=== PATIENT | male | born 1955 | race Caucasian/White ===

== ENCOUNTER 2019-01-09 13:49 | Emergency (ER) | payer SELFPAY ==
[~2019-01-09] VITALS: Ht 172.7 cm; Wt 65.9 kg
[2019-01-09 14:08] VITALS: BP 101/60
[2019-01-09] MEDS ORDERED: ALBU8.5H8 IH (14:36)
[2019-01-09] MEDS ORDERED: CEPH500C5 PO (14:36)
[2019-01-09] MEDS ORDERED: KEN0.1O TP (14:36)
== END 2019-01-09 15:08 | disposition home or self-care (01) ==
LOC: EDBD 13:50 → ER 13:50
DX: L03.116 Cellulitis of left lower limb (principal); L03.115 Cellulitis of right lower limb; J40 Bronchitis, not specified as acute or chronic; L30.8 Other specified dermatitis
CPT/HCPCS: 99284

== ENCOUNTER → 2019-01-20 | Emergency (ER) | payer SELFPAY ==
[~2019-01-20] VITALS: Ht 167.6 cm; Wt 53.9 kg
[~2019-01-20] MED LIST: ALBU8.5H8 IH; CEPH500C5 PO; DOXY100C43 PO; EMOL78CR TOP; KEN0.1O TP; emollient combination-Eucerin 250 ML LOTION TP STA
[2019-01-20 08:31] VITALS: BP 102/59
== END | disposition home or self-care (01) ==
LOC: ER 08:23
DX: L03.116 Cellulitis of left lower limb (principal); L03.115 Cellulitis of right lower limb; Z79.899 Other long term (current) drug therapy
CPT/HCPCS: 99283

== ENCOUNTER 2019-01-24 12:45 | Emergency (ER) | payer SELFPAY ==
[~2019-01-24] VITALS: Ht 170.2 cm; Wt 65.9 kg
[~2019-01-24 12:45] MED LIST changes: -emollient combination-Eucerin 250 ML LOTION TP STA
[2019-01-24 12:49] VITALS: BP 117/78
[2019-01-27] MEDS ORDERED: SULF1TAB48 PO (01:57)
== END 2019-01-24 14:08 | disposition home or self-care (01) ==
LOC: ER 12:46
DX: M79.604 Pain in right leg (principal); M79.605 Pain in left leg; Z60.9 Problem related to social environment, unspecified; Z59.0 Homelessness; Z56.0 Unemployment, unspecified; Z79.1 Long term (current) use of non-steroidal anti-inflammatories (NSAID); Z79.899 Other long term (current) drug therapy
CPT/HCPCS: 99281

== ENCOUNTER 2019-02-12 09:02 | Emergency (ER) | payer SELFPAY ==
[~2019-02-12] VITALS: Ht 172.7 cm; Wt 65.9 kg
[~2019-02-12 09:02] MED LIST changes: -DOXY100C43 PO; -KEN0.1O TP
[2019-02-12 09:09] VITALS: BP 99/62
[2019-02-12 10:14] LABS: BASOPHILS # (AUTO) 0.1 X10'3 (0-0.2); BASOPHILS % (AUTO) 1.3 % (0-1); EOSINOPHILS # (AUTO) 0.4 X10'3 (0-0.9); EOSINOPHILS % (AUTO) 7.5 % (0-6); HEMATOCRIT 33.9 % (42.0-52.0); HEMOGLOBIN 11.2 g/dl (14.0-17.9); LYMPHOCYTES % (AUTO) 17.8 % (21-51); MEAN CORPUSCULAR HEMOGLOBIN 29.6 PG (27.0-31.0); MEAN CORPUSCULAR HGB CONC 33.2 g/dL (33.0-36.5); MEAN CORPUSCULAR VOLUME 89.3 FL (78-98); MEAN PLATELET VOLUME 8.5 FL (7.4-10.4); MONOCYTES # (AUTO) 0.4 X10'3 (0-0.9); MONOCYTES % (AUTO) 6.9 % (2-12); NEUTROPHILS # (AUTO) 3.6 X10'3 (1.8-7.7); NEUTROPHILS % (AUTO) 66.5 % (42-75); PLATELET COUNT 253 X10'3 (140-440); RED BLOOD COUNT 3.79 X10'6 (4.70-6.10); WHITE BLOOD COUNT 5.5 X10'3 (4.5-11.0)
[2019-02-12 10:28] LABS: ALANINE AMINOTRANSFERASE 17 U/L (12-78); ALBUMIN 2.8 G/DL (3.4-5.0); ALBUMIN/GLOBULIN RATIO 0.7 (1.1-1.5); ALKALINE PHOSPHATASE 117 IU/L (46-116); ANION GAP 7 (8-16); ASPARTATE AMINO TRANSFERASE 19 U/L (10-37); BILIRUBIN,TOTAL 0.7 MG/DL (0.1-1.0); BLOOD UREA NITROGEN 25 MG/DL (7-18); BUN/CREATININE RATIO 22.7 (5.4-32.0); CALCIUM 8.6 MG/DL (8.5-10.1); CHLORIDE 107 MMOL/L (99-107); GLUCOSE 73 MG/DL (70-104); POTASSIUM 3.9 MMOL/L (3.5-5.1); SODIUM 139 MMOL/L (135-145); TOTAL CARBON DIOXIDE 24.8 MMOL/L (24-32); TOTAL PROTEIN 7.1 G/DL (6.4-8.2); eGFR 67 ML/MIN
[2019-02-12] MEDS ORDERED: CEPH-571 PO (10:49)
[2019-02-16] MEDS ORDERED: ACET-2119 PO (22:23)
== END 2019-02-12 11:34 | disposition home or self-care (01) ==
LOC: ER 09:03
DX: L03.116 Cellulitis of left lower limb (principal); L03.115 Cellulitis of right lower limb; R06.02 Shortness of breath; Z59.0 Homelessness; Z56.0 Unemployment, unspecified; Z79.899 Other long term (current) drug therapy
CPT/HCPCS: 36415; 80053; 85025; 93005; 99284

== ENCOUNTER 2019-05-27 12:19 | Inpatient (IN) | payer SELFPAY ==
[~2019-05-27] VITALS: Ht 172.7 cm; Wt 65.9 kg
[~2019-05-27 12:19] MED LIST changes: +CEPH-571 PO
[2019-05-27] MEDS ORDERED: normal saline 1000ML IV soln IVB ONE (12:25)
[2019-05-27 12:43] LABS: BASOPHILS # (AUTO) 0.1 X10'3 (0-0.2); EOSINOPHILS # (AUTO) 0.7 X10'3 (0-0.9); EOSINOPHILS % (AUTO) 5.3 % (0-6); HEMOGLOBIN 11.4 g/dl (14.0-17.9); LYMPHOCYTES # (AUTO) 2.2 X10'3 (1.1-4.8); LYMPHOCYTES % (AUTO) 17.5 % (21-51); MEAN CORPUSCULAR HEMOGLOBIN 29.6 PG (27.0-31.0); MEAN CORPUSCULAR HGB CONC 32.5 g/dL (33.0-36.5); MEAN CORPUSCULAR VOLUME 90.9 FL (78-98); MEAN PLATELET VOLUME 7.7 FL (7.4-10.4); MONOCYTES % (AUTO) 8.2 % (2-12); NEUTROPHILS # (AUTO) 8.6 X10'3 (1.8-7.7); PLATELET COUNT 328 X10'3 (140-440); RED BLOOD COUNT 3.85 X10'6 (4.70-6.10); RED CELL DISTRIBUTION WIDTH 15.7 % (11.5-14.5); WHITE BLOOD COUNT 12.6 X10'3 (4.5-11.0)
[2019-05-27 12:55] LABS: ALANINE AMINOTRANSFERASE 19 U/L (12-78); ALBUMIN 2.8 G/DL (3.4-5.0); ALBUMIN/GLOBULIN RATIO 0.5 (1.1-1.5); ALKALINE PHOSPHATASE 87 IU/L (46-116); ANION GAP 4 (8-16); ASPARTATE AMINO TRANSFERASE 12 U/L (10-37); BILIRUBIN,TOTAL 0.5 MG/DL (0.1-1.0); BLOOD UREA NITROGEN 12 MG/DL (7-18); BUN/CREATININE RATIO 10.9 (5.4-32.0); CALCIUM 8.4 MG/DL (8.5-10.1); CHLORIDE 105 MMOL/L (99-107); GLUCOSE 89 MG/DL (70-104); POTASSIUM 3.5 MMOL/L (3.5-5.1); SODIUM 141 MMOL/L (135-145); TOTAL CARBON DIOXIDE 31.8 MMOL/L (24-32); TOTAL PROTEIN 8.4 G/DL (6.4-8.2); eGFR 67 ML/MIN
[2019-05-27 13:03] LABS: MAGNESIUM 1.9 MG/DL (1.5-2.4)
[2019-05-27] MEDS ORDERED: NO HOME MEDS (13:34)
[2019-05-27 13:50] LABS: CLARITY,URINE CLEAR (Clear); COLOR,URINE YELLOW (Yellow); GLUCOSE, URINE NEGATIVE (Neg); KETONES,URINE NEGATIVE (Neg); LEUKOCYTE ESTERASE ,URINE NEGATIVE (Neg); NITRITES, URINE NEGATIVE (Neg); OCCULT BLOOD,URINE TRACE-INTACT (Neg); PROTEIN,URINE TRACE mg/dl (Neg)
[2019-05-27 13:52] LABS: UA COLLECTION TYPE URINAL
[2019-05-27 13:55] LABS: WBC,URINE 0-4 /HPF (0-4)
[2019-05-27] MEDS ORDERED: potassium Cl 20 mEq SR tablet PO PRN ×2 (13:55)
[2019-05-27] MEDS ORDERED: acetaminophen 325mg tablet PO PRN ×2 (13:55)
[2019-05-27] MEDS ORDERED: magnesium 4gm in 100ml NS 100 ML IV PRN (13:55)
[2019-05-27] MEDS ORDERED: HYDROcodone/acetaminophen 5mg/325mg tablet PO PRN (13:55)
[2019-05-27] MEDS ORDERED: docusate sod 100mg capsule PO PRN (13:55)
[2019-05-27] MEDS ORDERED: HYDROcodone/acetaminophen 10/325mg tab PO PRN (13:55)
[2019-05-27] MEDS ORDERED: mag hydrox/Alum hydrox/simeth 30ml oral suspension PO PRN (13:55)
[2019-05-27] MEDS ORDERED: magnesium 2GM in 50ml NS 50 ML IV PRN (13:55)
[2019-05-27] MEDS ORDERED: potassium CL 10mEq/100ml bag 100 ML IV PRN ×2 (13:55)
[2019-05-27] MEDS ORDERED: ondansetron/PF 4mg/2ml inj IV PRN (13:55)
[2019-05-27 13:56] LABS: BACTERIA,URINE NONE SEEN /HPF (Neg); MUCUS STRANDS NONE SEEN /LPF (Neg); SQUAMOUS EPITHELIAL CELL,UR FEW /LPF (FEW)
[2019-05-27] MEDS: CefTRIAXone/D5W-Rocephin 1gm 50 ML IV SCH (14:22)
[2019-05-27] MEDS: levoFLOXACIN 750MG TABLET PO SCH (14:23)
[2019-05-27] MEDS: normal saline 1000ml 1,000 ML IV SCH (14:23)
--- NOTE | 2019-05-27 14:34 | NUR ---
MULTIPLE WOUNDS NOTED ON BILATERAL LOWER EXTREMITIES /T CELLULITIS WEEPING CLEAR LIQUID WITHOUT ODOR. SCAB LIKE AREAS NOTED ON CHEST WALL AND RIGHT SHOULDER. PT STATES HE HAS HAD THESE WOUNDS FOR A "LONG lONG TIME"
[2019-05-27 15:00] VITALS: BP 168/93
[2019-05-27] MEDS: fluconazole-Diflucan 200mg/NS 100 ML IV SCH (15:01)
--- NOTE | 2019-05-27 15:12 | NUR ---
WOUNDS LABLED, RECORDED AND PHOTOGRAPHED .
--- NOTE | 2019-05-27 15:13 | NUR ---
report attempted uriel to call back
--- NOTE | 2019-05-27 18:00 | NUR ---
Received report from Michaelle PEÑA, assumed care of patient with Jacquelin PEÑA.
--- NOTE | 2019-05-27 18:15 | NUR ---
Problems reprioritized. Patient report given, questions answered & plan of care reviewed with GREGORIO Chung RN.
[2019-05-27] MEDS: JUVEN Shake w/Arg/Glut/Ca2+Bmb (Juven 19.3gm) pkt 240ml PO SCH (18:16)
[2019-05-27 20:00] VITALS: BP 91/53
[2019-05-27] MEDS: lactobacillus rhamnosus 10,000 MMU CELLS/CAPSULE PO SCH (20:00)
--- NOTE | 2019-05-27 20:00 | NUR ---
Patient refusing water and tea.
[2019-05-28] VITALS: BP 92/50
[2019-05-28] MEDS: normal saline 1000ml 1,000 ML IV SCH ×3 (00:03→21:58)
--- NOTE | 2019-05-28 01:12 | NUR ---
Notified of BP change 92/50 @ 0000 and 91/53 at 1999. No change in orders at this time. MD states map of 70 and pt sleeping.
--- NOTE | 2019-05-28 04:00 | NUR ---
Pt continues to refuse any water or food.
[2019-05-28 05:42] LABS: ALANINE AMINOTRANSFERASE 13 U/L (12-78); ALBUMIN/GLOBULIN RATIO 0.5 (1.1-1.5); ALKALINE PHOSPHATASE 63 IU/L (46-116); ANION GAP 5 (8-16); ASPARTATE AMINO TRANSFERASE 10 U/L (10-37); BILIRUBIN,TOTAL 0.7 MG/DL (0.1-1.0); BLOOD UREA NITROGEN 14 MG/DL (7-18); BUN/CREATININE RATIO 13.1 (5.4-32.0); CALCIUM 7.7 MG/DL (8.5-10.1); CHLORIDE 110 MMOL/L (99-107); CREATININE 1.07 MG/DL (0.60-1.10); GLUCOSE 81 MG/DL (70-104); MAGNESIUM 1.7 MG/DL (1.5-2.4); POTASSIUM 3.6 MMOL/L (3.5-5.1); SODIUM 143 MMOL/L (135-145); TOTAL PROTEIN 6.4 G/DL (6.4-8.2); eGFR 69 ML/MIN
[2019-05-28 05:43] LABS: BASOPHILS # (AUTO) 0.1 X10'3 (0-0.2); BASOPHILS % (AUTO) 0.8 % (0-1); EOSINOPHILS # (AUTO) 0.6 X10'3 (0-0.9); EOSINOPHILS % (AUTO) 5.9 % (0-6); HEMATOCRIT 28.7 % (42.0-52.0); HEMOGLOBIN 9.7 g/dl (14.0-17.9); LYMPHOCYTES # (AUTO) 2.1 X10'3 (1.1-4.8); LYMPHOCYTES % (AUTO) 22.1 % (21-51); MEAN CORPUSCULAR HEMOGLOBIN 30.5 PG (27.0-31.0); MEAN CORPUSCULAR HGB CONC 33.8 g/dL (33.0-36.5); MEAN CORPUSCULAR VOLUME 90.2 FL (78-98); MONOCYTES # (AUTO) 0.7 X10'3 (0-0.9); MONOCYTES % (AUTO) 7.6 % (2-12); NEUTROPHILS % (AUTO) 63.6 % (42-75); PLATELET COUNT 265 X10'3 (140-440); RED BLOOD COUNT 3.18 X10'6 (4.70-6.10); RED CELL DISTRIBUTION WIDTH 15.2 % (11.5-14.5); WHITE BLOOD COUNT 9.5 X10'3 (4.5-11.0)
--- NOTE | 2019-05-28 06:20 | NUR ---
Patient in room JUD[facility] 350. I have received report from Jacquelin Chung RN and had the opportunity to ask questions and assume patient care.
--- NOTE | 2019-05-28 06:41 | NUR ---
Problems reprioritized. Patient report given, questions answered & plan of care reviewed with CASEY Leonardo.
[2019-05-28 08:00] VITALS: BP 96/55
[2019-05-28] MEDS: JUVEN Shake w/Arg/Glut/Ca2+Bmb (Juven 19.3gm) pkt 240ml PO SCH ×3 (08:00→18:12)
[2019-05-28] MEDS: K and/or MAG REPLACEMENT MC SCH (08:00)
[2019-05-28] MEDS: lactobacillus rhamnosus 10,000 MMU CELLS/CAPSULE PO SCH ×2 (08:54→22:00)
[2019-05-28] MEDS: CefTRIAXone/D5W-Rocephin 1gm 50 ML IV SCH (08:55)
[2019-05-28] MEDS: enoxaparin 40mg/0.4ml syringe SQ SCH (09:00)
[2019-05-28] MEDS ORDERED: pneumococcal 23-VAL P-sac vacc 25 mcg/0.5ml vial IMVAC ONE (10:00)
[2019-05-28] MEDS: levoFLOXACIN 750MG TABLET PO SCH (10:40)
[2019-05-28] MEDS: fluconazole-Diflucan 200mg/NS 100 ML IV SCH (10:40)
[2019-05-28 11:00] VITALS: BP 93/57
--- NOTE | 2019-05-28 14:11 | NUR ---
PRESSURE ULCER EDUCATION: DEFINITION: A pressure ulcer is an area of skin that breaks down when you stay in one position too long. The constant pressure against the skin reduces the blood flow to that area and the affected tissue dies. CAUSES: "Being bedridden or in a wheelchair "Fragile skin "Having a chronic condition, such as diabetes or vascular disease "Inability to move certain parts of your body without assistance "Older age "Incontinence of urine or stool SYMPTOMS: "A reddened area that DOES NOT turn white when pressed on - this can be the beginning of a pressure ulcer "A blister, deep sore or a crater - these can be advanced pressure ulcers FIRST AID: "Relieve the pressure on this area "Keep the area clean and dry "Call your primary doctor if you see any of the above symptoms "DO NOT massage the area "DO NOT use a donut shaped or ring shaped pillow- these actually interfere with the blood flow and cause complications PREVENTION: "Check for pressure ulcers everyday "Change position at least every two hours to relieve pressure "Use items that help relieve pressure- pillows, sheepskin, foam padding, and powders. "Keep skin clean and dry "Eat healthy well balanced meals "Exercise daily IF YOU SEE ANY OF THESE SYMPTOMS WHILE IN THE HOSPITAL - TELL YOUR NURSE IMMEDIATELY. IF YOU SEE ANY OF THESE SYMPTOMS WHILE AT HOME OR HAVE ANY QUESTIONS OR CONCERNS ABOUT PRESSURE ULCERS - CALL YOUR PRIMARY DOCTOR IMMEDIATELY. WOUND INFECTION EDUCATION PROVIDED BY WOUND CARE 1. Patient instructed to call their primary doctor, or go the ED immediately if any of the following symptoms occur: * Increased pain in wound * Increase in drainage from the wound * Redness in the skin surrounding the wound * Warmth in the skin surrounding the wound * Bleeding from the wound * Temperature of 101 or greater 2. If any of these occur while in the hospital tell a nurse immediately. Addendum: 05/28/19 at 1411 by Brian Marino RN Amended: Links added.
--- NOTE | 2019-05-28 15:40 | NUR ---
Nutrition consult: Patient's current wt is stable with documented wt hx. Pt seen at bedside reports UBW 145-150#. Pt endorses a good appetite which is evident with documented average 75% PO intake of meals and 100% PO intake of high protein shake TID meeting nutrient needs. 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 Pt currently does not meet criteria for malnutrition. Per WOC notes pt with BLE cellulitis with multiple areas of necrosis, eschar covered wound to LLE, abrasion to right chest, and stage II PU to left shoulder. Pt provided with written and verbal protein education with RD contact information. Pt already receiving high protein shake TID and is agreeable to cottage cheese TID for additional protein, d/w dietary. Pt denies any food allergies, difficulty chewing/swallowing, or constipation/diarrhea. LBM 8/4. Will continue to follow. Recommendations: 1) Continue regular diet 2) Cottage cheese TID; High protein shake TID 3) Routine bowel care 4) Wt per rx Addendum: 05/28/19 at [address] Amended: Links added.
--- NOTE | 2019-05-28 18:12 | NUR ---
Problems reprioritized. Patient report given, questions answered & plan of care reviewed with Jacquelin Chung RN.
[2019-05-28 19:00] VITALS: BP 112/71
[2019-05-29] VITALS: BP 120/71
--- NOTE | 2019-05-29 01:33 | NUR ---
Pt progressively confused. Was not wanting to get back into bed. Refused dressing change. Pulled two IV's. Adamant to leave his shoes on so he is ready to go. Attempted to reorient patient. Advised it is the middle of the night. Still refused to get into bed. States "As soon as I get comfy and silk examiner bed, the lady is going to come and walk me up and down the halls". Was finally able to encourage patient back into bed, refuses to remove shoes. States "if I take my shoes off and I loose them, I will have a very long walk without my shoes". Assured patient he would not be discharge without shoes. Will reattempt IV start later in the morning when patient has had some sleep and may be more oriented to time, place, and purpose.
[2019-05-29 05:06] LABS: BASOPHILS % (AUTO) 0.3 % (0-1); EOSINOPHILS # (AUTO) 0.7 X10'3 (0-0.9); EOSINOPHILS % (AUTO) 5.4 % (0-6); HEMATOCRIT 30.6 % (42.0-52.0); HEMOGLOBIN 10.2 g/dl (14.0-17.9); LYMPHOCYTES # (AUTO) 2.2 X10'3 (1.1-4.8); LYMPHOCYTES % (AUTO) 18.1 % (21-51); MEAN CORPUSCULAR HEMOGLOBIN 30.2 PG (27.0-31.0); MEAN CORPUSCULAR HGB CONC 33.3 g/dL (33.0-36.5); MEAN CORPUSCULAR VOLUME 90.8 FL (78-98); MEAN PLATELET VOLUME 7.9 FL (7.4-10.4); MONOCYTES # (AUTO) 0.7 X10'3 (0-0.9); MONOCYTES % (AUTO) 6.1 % (2-12); NEUTROPHILS # (AUTO) 8.5 X10'3 (1.8-7.7); NEUTROPHILS % (AUTO) 70.1 % (42-75); PLATELET COUNT 299 X10'3 (140-440); RED BLOOD COUNT 3.37 X10'6 (4.70-6.10); RED CELL DISTRIBUTION WIDTH 15.3 % (11.5-14.5); WHITE BLOOD COUNT 12.2 X10'3 (4.5-11.0)
[2019-05-29 05:07] LABS: ALANINE AMINOTRANSFERASE 16 U/L (12-78); ALBUMIN 2.3 G/DL (3.4-5.0); ALBUMIN/GLOBULIN RATIO 0.5 (1.1-1.5); ALKALINE PHOSPHATASE 71 IU/L (46-116); ANION GAP 8 (8-16); ASPARTATE AMINO TRANSFERASE 12 U/L (10-37); BILIRUBIN,TOTAL 0.5 MG/DL (0.1-1.0); BLOOD UREA NITROGEN 23 MG/DL (7-18); BUN/CREATININE RATIO 22.8 (5.4-32.0); CALCIUM 7.8 MG/DL (8.5-10.1); CHLORIDE 105 MMOL/L (99-107); CREATININE 1.01 MG/DL (0.60-1.10); GLUCOSE 85 MG/DL (70-104); MAGNESIUM 1.7 MG/DL (1.5-2.4); POTASSIUM 3.9 MMOL/L (3.5-5.1); SODIUM 139 MMOL/L (135-145); TOTAL CARBON DIOXIDE 25.6 MMOL/L (24-32); TOTAL PROTEIN 7.1 G/DL (6.4-8.2); eGFR 74 ML/MIN
[2019-05-29] MEDS: normal saline 1000ml 1,000 ML IV SCH ×3 (05:15→20:55)
--- NOTE | 2019-05-29 06:13 | NUR ---
Problems reprioritized. Patient report given, questions answered & plan of care reviewed with CASEY Pro.
--- NOTE | 2019-05-29 06:56 | NUR ---
Patient in room [facility] 350. I have received report from Jacquelin PEÑA and had the opportunity to ask questions and assume patient care.
[2019-05-29 07:09] VITALS: BP 99/57
[2019-05-29] MEDS: K and/or MAG REPLACEMENT MC SCH (07:17)
[2019-05-29] MEDS ORDERED: thiamine inj. 100 MG, MVI, adult No.4 with vit. K 10 ML in dextrose 5% water 500ml 489 ML IV STA ×3 (07:18)
[2019-05-29] MEDS ORDERED: thiamine inj. 100 MG in normal saline 100ml IV soln 99 ML IV STA (07:23)
[2019-05-29] MEDS ORDERED: MVI, adult No.4 with vit. K 10 ML in dextrose 5% water 500ml 490 ML IV STA ×2 (07:23)
[2019-05-29] MEDS: fluconazole 100mg tablet PO SCH (07:51)
[2019-05-29] MEDS: enoxaparin 40mg/0.4ml syringe SQ SCH (07:51)
[2019-05-29] MEDS: lactobacillus rhamnosus 10,000 MMU CELLS/CAPSULE PO SCH ×2 (07:51→20:56)
[2019-05-29] MEDS: JUVEN Shake w/Arg/Glut/Ca2+Bmb (Juven 19.3gm) pkt 240ml PO SCH ×3 (08:08→18:06)
[2019-05-29] MEDS: CefTRIAXone/D5W-Rocephin 1gm 50 ML IV SCH (08:58)
[2019-05-29] MEDS: levoFLOXACIN 750MG TABLET PO SCH (11:09)
--- NOTE | 2019-05-29 18:31 | NUR ---
Problems reprioritized. Patient report given, questions answered & plan of care reviewed with Dedee RN.
--- NOTE | 2019-05-29 18:35 | NUR ---
Patient in room [facility] 350. I have received report from HAYES PEÑA AND MELINDA PEÑA and had the opportunity to ask questions and assume patient care.
[2019-05-29 20:00] VITALS: BP 94/58
[2019-05-30] VITALS: BP 99/55
--- NOTE | 2019-05-30 06:30 | NUR ---
Problems reprioritized. Patient report given, questions answered & plan of care reviewed with COSTA PEÑA.
[2019-05-30 06:36] LABS: ALANINE AMINOTRANSFERASE 24 U/L (12-78); ALBUMIN 2.2 G/DL (3.4-5.0); ALBUMIN/GLOBULIN RATIO 0.5 (1.1-1.5); ALKALINE PHOSPHATASE 86 IU/L (46-116); ANION GAP 6 (8-16); ASPARTATE AMINO TRANSFERASE 34 U/L (10-37); BILIRUBIN,TOTAL 0.3 MG/DL (0.1-1.0); BLOOD UREA NITROGEN 26 MG/DL (7-18); BUN/CREATININE RATIO 24.8 (5.4-32.0); CALCIUM 7.9 MG/DL (8.5-10.1); CHLORIDE 109 MMOL/L (99-107); CREATININE 1.05 MG/DL (0.60-1.10); GLUCOSE 86 MG/DL (70-104); MAGNESIUM 1.8 MG/DL (1.5-2.4); SODIUM 142 MMOL/L (135-145); TOTAL CARBON DIOXIDE 26.6 MMOL/L (24-32); TOTAL PROTEIN 6.9 G/DL (6.4-8.2); eGFR 71 ML/MIN
[2019-05-30 06:37] LABS: BASOPHILS % (AUTO) 0.6 % (0-1); EOSINOPHILS # (AUTO) 0.9 X10'3 (0-0.9); EOSINOPHILS % (AUTO) 9.8 % (0-6); HEMATOCRIT 29.4 % (42.0-52.0); HEMOGLOBIN 10.1 g/dl (14.0-17.9); LYMPHOCYTES # (AUTO) 2.1 X10'3 (1.1-4.8); LYMPHOCYTES % (AUTO) 23.5 % (21-51); MEAN CORPUSCULAR HEMOGLOBIN 30.7 PG (27.0-31.0); MEAN CORPUSCULAR HGB CONC 34.2 g/dL (33.0-36.5); MEAN CORPUSCULAR VOLUME 89.6 FL (78-98); MEAN PLATELET VOLUME 8.3 FL (7.4-10.4); MONOCYTES # (AUTO) 0.6 X10'3 (0-0.9); MONOCYTES % (AUTO) 6.3 % (2-12); NEUTROPHILS # (AUTO) 5.3 X10'3 (1.8-7.7); NEUTROPHILS % (AUTO) 59.8 % (42-75); PLATELET COUNT 291 X10'3 (140-440); RED BLOOD COUNT 3.28 X10'6 (4.70-6.10); WHITE BLOOD COUNT 8.9 X10'3 (4.5-11.0)
[2019-05-30 07:00] VITALS: BP 98/52
[2019-05-30] MEDS: K and/or MAG REPLACEMENT MC SCH (08:00)
[2019-05-30] MEDS: lactobacillus rhamnosus 10,000 MMU CELLS/CAPSULE PO SCH (08:54)
[2019-05-30] MEDS: fluconazole 100mg tablet PO SCH (08:54)
[2019-05-30] MEDS: enoxaparin 40mg/0.4ml syringe SQ SCH (08:57)
[2019-05-30] MEDS: CefTRIAXone/D5W-Rocephin 1gm 50 ML IV SCH (08:57)
[2019-05-30] MEDS: JUVEN Shake w/Arg/Glut/Ca2+Bmb (Juven 19.3gm) pkt 240ml PO SCH ×2 (08:57→13:04)
[2019-05-30] MEDS: normal saline 1000ml 1,000 ML IV SCH (09:42)
[2019-05-30 11:27] VITALS: BP 113/72
[2019-05-30] MEDS ORDERED: FLUC100T9 PO (12:08)
[2019-05-30] MEDS ORDERED: CEPH250T PO (12:08)
--- NOTE | 2019-05-30 16:02 | NUR ---
Patient refused bilateral lower extremity discharge photos. During dressing change this AM, cellulitis was greatly improved from the admission pictures.
--- NOTE | 2019-05-30 17:39 | NUR ---
Patient discharged back to the [facility] via taxi, stable and appropriate. 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 IV removed. Discharge instructions given and reviewed with patient. Discharge pictures taken of right chest and right shoulder, however, patient refused to take pictures of bilateral lower extremities. Great improvement of cellulitis was noted during this AM's dressing changes.
== END 2019-05-30 17:25 | disposition home or self-care (01) | DRG 602 ==
LOC: ER 12:19 → SUR 3N 15:32 → CMPBEDREQ 19:26
PROVIDERS: ADMIT Family Medicine; ATTEND Family Medicine
PROC: 3E0234Z Introduction of Serum, Toxoid and Vaccine into Muscle, Percutaneous Approach (ICD-10-PCS; principal; 2019-05-28)
DX: L03.115 Cellulitis of right lower limb (principal); E43 Unspecified severe protein-calorie malnutrition; B35.1 Tinea unguium; B35.3 Tinea pedis; L03.116 Cellulitis of left lower limb; R25.1 Tremor, unspecified; Z68.22 Body mass index [BMI] 22.0-22.9, adult; Z59.0 Homelessness; Z23 Encounter for immunization; Z91.19 Patient's noncompliance with other medical treatment and regimen
CPT/HCPCS: 36415; 71045; 80053; 81001; 83735; 83880; 84484; 85025; 87081; 90732; 93005; 93306; 96361; 96365; 96367; 97116; 97161; 97530; 97535; 99285; G0378; J0696; J1450; J1650; J3411; J7030; J7060

== ENCOUNTER 2019-07-15 10:21 | Emergency (ER) | payer OTHER ==
[~2019-07-15] VITALS: Ht 172.7 cm; Wt 65.9 kg
[~2019-07-15 10:21] MED LIST changes: -ALBU8.5H8 IH; -CEPH-571 PO; +CEPH250T PO; -CEPH500C5 PO; -EMOL78CR TOP; +FLUC100T9 PO
[2019-07-15 11:26] VITALS: BP 131/84
[2019-07-15 11:53] LABS: BASOPHILS # (AUTO) 0.1 X10'3 (0-0.2); BASOPHILS % (AUTO) 0.7 % (0-1); EOSINOPHILS # (AUTO) 0.6 X10'3 (0-0.9); EOSINOPHILS % (AUTO) 6.1 % (0-6); HEMATOCRIT 33.2 % (42.0-52.0); HEMOGLOBIN 11.2 g/dl (14.0-17.9); MEAN CORPUSCULAR HEMOGLOBIN 30.8 PG (27.0-31.0); MEAN CORPUSCULAR HGB CONC 33.6 g/dL (33.0-36.5); MEAN CORPUSCULAR VOLUME 91.7 FL (78-98); MEAN PLATELET VOLUME 7.7 FL (7.4-10.4); MONOCYTES # (AUTO) 0.6 X10'3 (0-0.9); MONOCYTES % (AUTO) 6.4 % (2-12); NEUTROPHILS # (AUTO) 6.6 X10'3 (1.8-7.7); NEUTROPHILS % (AUTO) 66.8 % (42-75); PLATELET COUNT 324 X10'3 (140-440); RED BLOOD COUNT 3.62 X10'6 (4.70-6.10); RED CELL DISTRIBUTION WIDTH 15.8 % (11.5-14.5); WHITE BLOOD COUNT 9.9 X10'3 (4.5-11.0)
[2019-07-15 12:09] LABS: ALANINE AMINOTRANSFERASE 22 U/L (12-78); ALBUMIN/GLOBULIN RATIO 0.5 (1.1-1.5); ALKALINE PHOSPHATASE 98 IU/L (46-116); ANION GAP 10 (8-16); ASPARTATE AMINO TRANSFERASE 23 U/L (10-37); BILIRUBIN,TOTAL 0.5 MG/DL (0.1-1.0); BLOOD UREA NITROGEN 15 MG/DL (7-18); BUN/CREATININE RATIO 12.8 (5.4-32.0); CALCIUM 8.7 MG/DL (8.5-10.1); CHLORIDE 106 MMOL/L (99-107); CREATININE 1.17 MG/DL (0.60-1.10); GLUCOSE 87 MG/DL (70-104); POTASSIUM 3.7 MMOL/L (3.5-5.1); SODIUM 143 MMOL/L (135-145); TOTAL CARBON DIOXIDE 27.2 MMOL/L (24-32); TOTAL PROTEIN 9.2 G/DL (6.4-8.2); eGFR 63 ML/MIN
[2019-07-15] MEDS ORDERED: mupirocin 2% ointment 22GM TP STA (12:32)
[2019-07-15] MEDS ORDERED: MUPI22OI30 TOP (12:50)
[2019-07-15] MEDS ORDERED: CEPH500C5 PO (12:50)
--- NOTE | 2019-07-15 13:40 | NUR ---
CALLED WILBUR WITH SOCIAL SERVICE TO ASSIST PT APPLYING FOR MED-ICAL
== END 2019-07-15 16:00 | disposition home or self-care (01) ==
LOC: ER 10:22
DX: S81.802A Unspecified open wound, left lower leg, initial encounter (principal); S81.801A Unspecified open wound, right lower leg, initial encounter; L03.116 Cellulitis of left lower limb; L03.115 Cellulitis of right lower limb; Z59.0 Homelessness; Z56.0 Unemployment, unspecified; Z79.899 Other long term (current) drug therapy; X58.XXXA Exposure to other specified factors, initial encounter; Y93.89 Activity, other specified; Y92.89 Other specified places as the place of occurrence of the external cause; Y99.8 Other external cause status
CPT/HCPCS: 36415; 80053; 84145; 85025; 93925; 99284

== ENCOUNTER 2019-07-21 09:46 | Emergency (ER) | payer OTHER ==
[~2019-07-21] VITALS: Ht 172.7 cm; Wt 65.9 kg
[~2019-07-21 09:46] MED LIST changes: +CEPH500C5 PO; +MUPI22OI30 TOP
[2019-07-21 09:51] VITALS: BP 103/71
[2019-07-22] MEDS ORDERED: CEPH250T PO (09:39)
== END 2019-07-21 12:05 | disposition home or self-care (01) ==
LOC: ER 09:47
DX: S81.802A Unspecified open wound, left lower leg, initial encounter (principal); S81.801A Unspecified open wound, right lower leg, initial encounter; Z59.0 Homelessness; Z56.0 Unemployment, unspecified; X58.XXXA Exposure to other specified factors, initial encounter; Y93.9 Activity, unspecified; Y92.89 Other specified places as the place of occurrence of the external cause; Y99.8 Other external cause status
CPT/HCPCS: 99284

== ENCOUNTER 2019-07-22 09:13 | Emergency (ER) | payer OTHER ==
[~2019-07-22] VITALS: Ht 157.5 cm; Wt 56.8 kg
[2019-07-22] MEDS ORDERED: CEPH250T PO (09:39)
[2019-07-22] MEDS ORDERED: bacitracin 15gm ointment TP ONE (09:40)
[2019-07-22 10:03] VITALS: BP 126/71
== END 2019-07-22 10:08 | disposition home or self-care (01) ==
LOC: ER 09:14
DX: L03.116 Cellulitis of left lower limb (principal); L03.115 Cellulitis of right lower limb; Z56.0 Unemployment, unspecified; Z59.0 Homelessness; Z79.899 Other long term (current) drug therapy
CPT/HCPCS: 99284

== ENCOUNTER 2019-07-29 12:11 | Emergency (ER) | payer SELFPAY ==
[~2019-07-29] VITALS: Ht 172.7 cm; Wt 63.6 kg
[~2019-07-29 12:11] MED LIST changes: -MUPI22OI30 TOP
[2019-07-29 12:25] VITALS: BP 146/67
[2019-07-29 13:30] LABS: BASOPHILS % (AUTO) 0.6 % (0-1); EOSINOPHILS % (AUTO) 14.4 % (0-6); HEMATOCRIT 34.6 % (42.0-52.0); HEMOGLOBIN 11.6 g/dl (14.0-17.9); LYMPHOCYTES # (AUTO) 1.5 X10'3 (1.1-4.8); LYMPHOCYTES % (AUTO) 21.2 % (21-51); MEAN CORPUSCULAR HEMOGLOBIN 30.6 PG (27.0-31.0); MEAN CORPUSCULAR HGB CONC 33.5 g/dL (33.0-36.5); MEAN CORPUSCULAR VOLUME 91.2 FL (78-98); MEAN PLATELET VOLUME 7.7 FL (7.4-10.4); MONOCYTES # (AUTO) 0.5 X10'3 (0-0.9); NEUTROPHILS % (AUTO) 56.8 % (42-75); PLATELET COUNT 291 X10'3 (140-440); RED BLOOD COUNT 3.79 X10'6 (4.70-6.10); RED CELL DISTRIBUTION WIDTH 15.6 % (11.5-14.5); WHITE BLOOD COUNT 7.1 X10'3 (4.5-11.0)
[2019-07-29 13:59] LABS: ALANINE AMINOTRANSFERASE 20 U/L (12-78); ALBUMIN 2.9 G/DL (3.4-5.0); ALBUMIN/GLOBULIN RATIO 0.4 (1.1-1.5); ALKALINE PHOSPHATASE 92 IU/L (46-116); ANION GAP 10 (8-16); ASPARTATE AMINO TRANSFERASE 18 U/L (10-37); BILIRUBIN,TOTAL 0.5 MG/DL (0.1-1.0); BLOOD UREA NITROGEN 18 MG/DL (7-18); BUN/CREATININE RATIO 15.8 (5.4-32.0); CALCIUM 8.3 MG/DL (8.5-10.1); CHLORIDE 106 MMOL/L (99-107); CREATININE 1.14 MG/DL (0.60-1.10); GLUCOSE 95 MG/DL (70-104); POTASSIUM 3.2 MMOL/L (3.5-5.1); SODIUM 143 MMOL/L (135-145); TOTAL CARBON DIOXIDE 26.7 MMOL/L (24-32); TOTAL PROTEIN 9.4 G/DL (6.4-8.2); eGFR 64 ML/MIN
--- NOTE | 2019-07-29 15:01 | NUR ---
called mark ewing to page social service johnny that they can see the pt.
--- NOTE | 2019-07-29 15:09 | NUR ---
spoke to joselyn mahmood. regarding pt condition as per joselyn he is not applicable for detention facility but she will be coming to [facility] to talk to the pt
--- NOTE | 2019-07-29 15:32 | NUR ---
joselyn,social service at bedside.
== END 2019-07-29 16:36 | disposition home or self-care (01) ==
LOC: ER 12:12
DX: L08.89 Other specified local infections of the skin and subcutaneous tissue (principal); Z59.0 Homelessness; Z56.0 Unemployment, unspecified
CPT/HCPCS: 36415; 80053; 85025; 99283

== ENCOUNTER 2019-08-19 09:23 | Emergency (ER) | payer SELFPAY ==
[~2019-08-19] VITALS: Ht 172.7 cm; Wt 65.9 kg
[2019-08-19] MEDS ORDERED: CEPH500C5 PO (10:13)
[2019-08-19 11:09] VITALS: BP 113/67
[2019-08-20] MEDS ORDERED: DOXY100C43 PO (12:30)
== END 2019-08-19 11:19 | disposition home or self-care (01) ==
LOC: ER 09:24
DX: L03.116 Cellulitis of left lower limb (principal); L03.115 Cellulitis of right lower limb; Z59.0 Homelessness; Z56.0 Unemployment, unspecified; Z79.899 Other long term (current) drug therapy
CPT/HCPCS: 99284

== ENCOUNTER 2019-08-20 11:05 | Emergency (ER) | payer SELFPAY ==
[~2019-08-20] VITALS: Ht 172.7 cm; Wt 65.9 kg
[2019-08-20] MEDS ORDERED: mupirocin 2% ointment 22GM TP ONE (12:30)
[2019-08-20] MEDS ORDERED: DOXY100C43 PO (12:30)
[2019-08-20] MEDS ORDERED: DOXYCYCLINE 100MG CAPSULE PO STA (12:34)
[2019-08-20 13:05] VITALS: BP 122/61
== END 2019-08-20 13:07 | disposition home or self-care (01) ==
LOC: ER 11:06
DX: S80.812A Abrasion, left lower leg, initial encounter (principal); S80.811A Abrasion, right lower leg, initial encounter; L03.116 Cellulitis of left lower limb; L03.115 Cellulitis of right lower limb; L89.899 Pressure ulcer of other site, unspecified stage; Z56.0 Unemployment, unspecified; Z59.0 Homelessness; Z79.899 Other long term (current) drug therapy; X58.XXXA Exposure to other specified factors, initial encounter; Y93.89 Activity, other specified; Y92.89 Other specified places as the place of occurrence of the external cause; Y99.8 Other external cause status
CPT/HCPCS: 99284

== ENCOUNTER 2019-08-31 15:25 | Emergency (ER) | payer SELFPAY ==
[~2019-08-31] VITALS: Ht 172.7 cm; Wt 58.0 kg
[~2019-08-31 15:25] MED LIST changes: +DOXY100C43 PO
--- NOTE | 2019-08-31 17:31 | NUR ---
Jonathan Valdes at bedside.
--- NOTE | 2019-08-31 18:23 | NUR ---
Patient cleaned and changed since noted with Bm all over,new clothing on,BLE cleansed with NS pat dry,kerlix and sheela wrap on.Assisted to the wheelchair,awaiting dc paper.
[2019-08-31] MEDS ORDERED: CEPH250T PO (18:24)
[2019-08-31 18:28] VITALS: BP 134/81
== END 2019-08-31 18:32 | disposition home or self-care (01) ==
LOC: ER 15:26
DX: L03.116 Cellulitis of left lower limb (principal); L03.115 Cellulitis of right lower limb; Z59.0 Homelessness; Z56.0 Unemployment, unspecified
CPT/HCPCS: 99283

== ENCOUNTER 2019-09-05 13:42 | Emergency (ER) | payer SELFPAY ==
[~2019-09-05] VITALS: Ht 172.7 cm; Wt 65.9 kg
[2019-09-05 14:04] VITALS: BP 105/59
--- NOTE | 2019-09-05 16:13 | NUR ---
social service personnel joselyn at bedside .wound care tx done by section beamer and emt student .
--- NOTE | 2019-09-05 16:24 | NUR ---
spoken to social service joselyn carpenter [facility] [place] per her [facility] and adult [facility] service will follow up with him.joselyn said she will be back again to talk to pt.
== END 2019-09-05 17:03 | disposition home or self-care (01) ==
LOC: ER 13:42
DX: L03.116 Cellulitis of left lower limb (principal); L03.115 Cellulitis of right lower limb; Z59.0 Homelessness; Z56.0 Unemployment, unspecified; Z79.2 Long term (current) use of antibiotics; Z79.899 Other long term (current) drug therapy
CPT/HCPCS: 99283

== ENCOUNTER 2019-09-17 14:23 | Emergency (ER) | payer SELFPAY ==
[~2019-09-17] VITALS: Ht 172.7 cm; Wt 65.9 kg
[~2019-09-17 14:23] MED LIST changes: -DOXY100C43 PO
[2019-09-17 15:30] VITALS: BP 110/64
== END 2019-09-17 15:30 | disposition home or self-care (01) ==
LOC: ER 14:24
DX: Z48.00 Encounter for change or removal of nonsurgical wound dressing (principal); Z59.0 Homelessness; Z56.0 Unemployment, unspecified; Z79.899 Other long term (current) drug therapy
CPT/HCPCS: 99282

== ENCOUNTER 2019-10-18 09:22 | Emergency (ER) | payer SELFPAY ==
[~2019-10-18] VITALS: Ht 172.7 cm; Wt 65.9 kg
[2019-10-18] MEDS ORDERED: mupirocin 2% ointment 22GM TP STA (10:16)
[2019-10-18 13:54] VITALS: BP 118/87
--- NOTE | 2019-10-18 14:04 | NUR ---
Pt unable to ambulate safely with can. PT eval ordered per Tiffanie ESTEVEZ Addendum: 10/18/19 at 1405 by ADDYICHJanet with bennie
--- NOTE | 2019-10-18 14:45 | NUR ---
Asked to assist pt in being referred to [facility] out pt wound clinic. Unable to speak w/ anyone in the clinic so advised pt he needs to go to the [facility] and ask them for a referral to our wound clinic. Informed pt who was not interested in speaking w/ me. Laid on the gurney under the covers and told to leave his room. Will continue to monitor.
--- NOTE | 2019-10-18 15:18 | NUR ---
Pt unsteady with cane, requesting wheelchair. PT eval ordered. PT recommends FWW for pt to ambulate safely. Diane rehabilitation caseworker brought new FWW for pt to have. Pt discharged in stable condition with FWW and belongings. New coat and shoes given to pt as well. Pt given lunch, refused the sandwich, drank the juice and milk and kept the chips.
[2019-10-19] MEDS ORDERED: NO HOME MEDS (14:54)
== END 2019-10-18 15:36 | disposition home or self-care (01) ==
LOC: ER 09:24
DX: L97.929 Non-pressure chronic ulcer of unspecified part of left lower leg with unspecified severity (principal); L97.919 Non-pressure chronic ulcer of unspecified part of right lower leg with unspecified severity; Z59.0 Homelessness; Z56.0 Unemployment, unspecified; Z79.899 Other long term (current) drug therapy
CPT/HCPCS: 97116; 97161; 97530; 99284

== ENCOUNTER 2019-10-19 11:03 | Inpatient (IN) | payer SELFPAY ==
[~2019-10-19] VITALS: Ht 172.7 cm; Wt 65.0 kg
[2019-10-19] MEDS ORDERED: normal saline 1000ml 1,000 ML IV ONE ×2 (12:40→13:40)
[2019-10-19 13:19] LABS: BASOPHILS % (AUTO) 0.4 % (0-1); EOSINOPHILS # (AUTO) 0.1 X10'3 (0-0.9); EOSINOPHILS % (AUTO) 0.6 % (0-6); HEMATOCRIT 36.9 % (42.0-52.0); HEMOGLOBIN 12.6 g/dl (14.0-17.9); LYMPHOCYTES # (AUTO) 1.2 X10'3 (1.1-4.8); LYMPHOCYTES % (AUTO) 12.1 % (21-51); MEAN CORPUSCULAR HEMOGLOBIN 30.8 PG (27.0-31.0); MEAN CORPUSCULAR HGB CONC 34.1 g/dL (33.0-36.5); MEAN CORPUSCULAR VOLUME 90.2 FL (78-98); MEAN PLATELET VOLUME 8.4 FL (7.4-10.4); MONOCYTES # (AUTO) 0.6 X10'3 (0-0.9); MONOCYTES % (AUTO) 5.7 % (2-12); NEUTROPHILS # (AUTO) 8.2 X10'3 (1.8-7.7); NEUTROPHILS % (AUTO) 81.2 % (42-75); PLATELET COUNT 352 X10'3 (140-440); RED BLOOD COUNT 4.09 X10'6 (4.70-6.10); RED CELL DISTRIBUTION WIDTH 16.1 % (11.5-14.5)
[2019-10-19 13:25] LABS: PARTIAL THROMBOPLASTIN TIME 28 SECONDS (22-32)
[2019-10-19 13:27] LABS: ALANINE AMINOTRANSFERASE 22 U/L (12-78); ALBUMIN 3.3 G/DL (3.4-5.0); ALBUMIN/GLOBULIN RATIO 0.5 (1.1-1.5); ALKALINE PHOSPHATASE 94 IU/L (46-116); ANION GAP 12 (8-16); ASPARTATE AMINO TRANSFERASE 22 U/L (10-37); BILIRUBIN,TOTAL 0.7 MG/DL (0.1-1.0); BLOOD UREA NITROGEN 42 MG/DL (7-18); BUN/CREATININE RATIO 24.3 (5.4-32.0); CALCIUM 9.2 MG/DL (8.5-10.1); CHLORIDE 106 MMOL/L (99-107); CREATININE 1.73 MG/DL (0.60-1.10); GLUCOSE 85 MG/DL (70-104); POTASSIUM 3.9 MMOL/L (3.5-5.1); SODIUM 143 MMOL/L (135-145); TOTAL CARBON DIOXIDE 24.9 MMOL/L (24-32); TOTAL PROTEIN 9.4 G/DL (6.4-8.2); eGFR 40 ML/MIN
[2019-10-19 13:30] LABS: ETHANOL < 0.010 GM/DL (0.0-0.010); TROPONIN I < 0.04 NG/ML (0.0-0.05)
[2019-10-19] MEDS: normal saline 1000ml 1,000 ML IV SCH ×2 (13:58→23:58)
[2019-10-19] MEDS ORDERED: morphine 2 MG/ML inj. syringe IV PRN ×2 (14:00)
[2019-10-19] MEDS ORDERED: acetaminophen 325mg tablet PO PRN ×2 (14:00)
[2019-10-19] MEDS ORDERED: HYDROcodone/acetaminophen 5mg/325mg tablet PO PRN (14:00)
[2019-10-19] MEDS ORDERED: mag hydrox/Alum hydrox/simeth 30ml oral suspension PO PRN (14:00)
[2019-10-19] MEDS ORDERED: ondansetron/PF 4mg/2ml inj IV PRN (14:00)
[2019-10-19] MEDS ORDERED: magnesium hydroxide 30ml (MOM) UD suspension PO PRN (14:00)
[2019-10-19] MEDS ORDERED: HYDROcodone/acetaminophen 10/325mg tab PO PRN (14:00)
[2019-10-19 14:25] LABS: MAGNESIUM 2.3 MG/DL (1.5-2.4); PHOSPHORUS 3.3 MG/DL (2.3-4.5)
--- NOTE | 2019-10-19 14:53 | NUR ---
I have received patient report from Yuriy in the ED
--- NOTE | 2019-10-19 14:53 | NUR ---
No home meds
[2019-10-19] MEDS ORDERED: NO HOME MEDS (14:54)
[2019-10-19 15:10] VITALS: BP 109/57
[2019-10-19 16:25] LABS: CLARITY,URINE CLEAR (Clear); COLOR,URINE YELLOW (Yellow); GLUCOSE, URINE NEGATIVE (Neg); KETONES,URINE NEGATIVE (Neg); LEUKOCYTE ESTERASE ,URINE NEGATIVE (Neg); NITRITES, URINE POSITIVE (Neg); OCCULT BLOOD,URINE MODERATE (Neg); PH,URINE 5.5 (4.8-8.0); PROTEIN,URINE 30 mg/dl (Neg); UROBILINOGEN,URINE 0.2 E.U/dL (0.2-1.0)
[2019-10-19 16:34] LABS: UA COLLECTION TYPE CLN CATCH MIDSTREAM
[2019-10-19 16:35] LABS: BACTERIA,URINE FEW /HPF (Neg); MUCUS STRANDS FEW /LPF (Neg); RBC,URINE 0-2 /HPF (0-2); SQUAMOUS EPITHELIAL CELL,UR FEW /LPF (FEW); WBC,URINE 0-4 /HPF (0-4)
[2019-10-19 16:36] LABS: URINE AMPHETAMINE SCREEN NEGATIVE (Neg); URINE BARBITUATE SCREEN NEGATIVE (Neg); URINE BENZODIAZEPINES SCREEN NEGATIVE (Neg); URINE CANNABINOID SCREEN NEGATIVE (Neg); URINE COCAINE SCREEN NEGATIVE (Neg); URINE METHADONE SCREEN NEGATIVE (Neg); URINE OPIATE SCREEN NEGATIVE (Neg); URINE PHENCYCLIDINE SCREEN NEGATIVE (Neg)
[2019-10-19 18:00] VITALS: BP 98/44
--- NOTE | 2019-10-19 18:22 | NUR ---
Patient report given to Holli PEÑA
--- NOTE | 2019-10-19 18:43 | NUR ---
Patient in room ORTHO 4022. I have received report from Merle PEÑA and had the opportunity to ask questions and assume patient care.
[2019-10-19] MEDS: heparin, porcine 5000 units/ml vial SQ SCH (20:00)
[2019-10-19 22:00] VITALS: BP 156/102
[2019-10-20 06:00] VITALS: BP 76/46
--- NOTE | 2019-10-20 06:12 | NUR ---
Problems reprioritized. Patient report given, questions answered & plan of care reviewed with ALAINA PEÑA.
[2019-10-20 06:13] LABS: BASOPHILS # (AUTO) 0.1 X10'3 (0-0.2); BASOPHILS % (AUTO) 0.8 % (0-1); EOSINOPHILS # (AUTO) 0.3 X10'3 (0-0.9); EOSINOPHILS % (AUTO) 4.2 % (0-6); HEMATOCRIT 28.9 % (42.0-52.0); HEMOGLOBIN 9.8 g/dl (14.0-17.9); LYMPHOCYTES # (AUTO) 1.4 X10'3 (1.1-4.8); LYMPHOCYTES % (AUTO) 20.5 % (21-51); MEAN CORPUSCULAR HEMOGLOBIN 30.7 PG (27.0-31.0); MEAN CORPUSCULAR VOLUME 90.4 FL (78-98); MEAN PLATELET VOLUME 8.2 FL (7.4-10.4); MONOCYTES # (AUTO) 0.5 X10'3 (0-0.9); NEUTROPHILS # (AUTO) 4.5 X10'3 (1.8-7.7); NEUTROPHILS % (AUTO) 66.5 % (42-75); PLATELET COUNT 272 X10'3 (140-440); RED CELL DISTRIBUTION WIDTH 16.2 % (11.5-14.5); WHITE BLOOD COUNT 6.8 X10'3 (4.5-11.0)
--- NOTE | 2019-10-20 06:15 | NUR ---
Patient in room ORTHO 4022. I have received report from CASEY De La Garza and had the opportunity to ask questions and assume patient care.
[2019-10-20 06:20] LABS: ALBUMIN 2.4 G/DL (3.4-5.0); ANION GAP 5 (8-16); BLOOD UREA NITROGEN 35 MG/DL (7-18); BUN/CREATININE RATIO 24.8 (5.4-32.0); CALCIUM 7.9 MG/DL (8.5-10.1); CHLORIDE 113 MMOL/L (99-107); CREATININE 1.41 MG/DL (0.60-1.10); GLUCOSE 76 MG/DL (70-104); POTASSIUM 3.7 MMOL/L (3.5-5.1); SODIUM 142 MMOL/L (135-145); TOTAL CARBON DIOXIDE 23.9 MMOL/L (24-32); eGFR 50 ML/MIN
--- NOTE | 2019-10-20 06:57 | NUR ---
PAGER ID: [phone] MESSAGE: [id number] Gabe Sosa: BP 76/46 CASEY Langford Ext [phone]
[2019-10-20 07:52] VITALS: BP 94/57
[2019-10-20 08:00] VITALS: BP_SYST 88; BP_SYST 90; BP_SYST 96; BP_DIAS 44; BP_DIAS 52; BP_DIAS 57
[2019-10-20] MEDS: heparin, porcine 5000 units/ml vial SQ SCH ×2 (08:00→20:00)
[2019-10-20] MEDS: normal saline 1000ml 1,000 ML IV SCH ×2 (08:46→14:40)
[2019-10-20 10:00] VITALS: BP 88/44
--- NOTE | 2019-10-20 11:25 | NUR ---
PAGER ID: [phone] MESSAGE: [id number] Gabe Sosa: BP 88/44 MAP ([phone]) CASEY Langford Ext [phone]
[2019-10-20] MEDS ORDERED: normal saline 500ml IV soln 1,000 ML IV ONE (11:35)
[2019-10-20] MEDS: levoFLOXACIN-Levaquin 250mg/D5 50 ML IV SCH (14:55)
[2019-10-20 18:00] VITALS: BP 138/45
--- NOTE | 2019-10-20 18:12 | NUR ---
Problems reprioritized. Patient report given, questions answered & plan of care reviewed with CASEY De La Garza.
--- NOTE | 2019-10-20 18:46 | NUR ---
Patient in room ORTHO 4022. I have received report from Atif PEÑA and had the opportunity to ask questions and assume patient care.
[2019-10-20 22:00] VITALS: BP 101/53
[2019-10-21] MEDS: normal saline 1000ml 1,000 ML IV SCH ×2 (01:41→19:52)
[2019-10-21 06:02] LABS: BASOPHILS % (AUTO) 0.6 % (0-1); EOSINOPHILS # (AUTO) 0.4 X10'3 (0-0.9); HEMATOCRIT 28.5 % (42.0-52.0); HEMOGLOBIN 9.6 g/dl (14.0-17.9); LYMPHOCYTES # (AUTO) 1.9 X10'3 (1.1-4.8); LYMPHOCYTES % (AUTO) 25.4 % (21-51); MEAN CORPUSCULAR HEMOGLOBIN 30.9 PG (27.0-31.0); MEAN CORPUSCULAR HGB CONC 33.7 g/dL (33.0-36.5); MEAN CORPUSCULAR VOLUME 91.6 FL (78-98); MEAN PLATELET VOLUME 8.3 FL (7.4-10.4); MONOCYTES # (AUTO) 0.5 X10'3 (0-0.9); MONOCYTES % (AUTO) 7.2 % (2-12); NEUTROPHILS # (AUTO) 4.5 X10'3 (1.8-7.7); NEUTROPHILS % (AUTO) 60.8 % (42-75); PLATELET COUNT 240 X10'3 (140-440); RED BLOOD COUNT 3.11 X10'6 (4.70-6.10); RED CELL DISTRIBUTION WIDTH 16.1 % (11.5-14.5); WHITE BLOOD COUNT 7.4 X10'3 (4.5-11.0)
[2019-10-21 06:08] LABS: ALBUMIN 2.2 G/DL (3.4-5.0); ANION GAP 7 (8-16); BLOOD UREA NITROGEN 21 MG/DL (7-18); BUN/CREATININE RATIO 17.4 (5.4-32.0); CALCIUM 7.7 MG/DL (8.5-10.1); CHLORIDE 112 MMOL/L (99-107); CREATININE 1.21 MG/DL (0.60-1.10); GLUCOSE 79 MG/DL (70-104); POTASSIUM 3.4 MMOL/L (3.5-5.1); SODIUM 142 MMOL/L (135-145); TOTAL CARBON DIOXIDE 22.7 MMOL/L (24-32); eGFR 60 ML/MIN
--- NOTE | 2019-10-21 06:30 | NUR ---
Patient in room ORTHO 4022. I have received report from SKY PEÑA and had the opportunity to ask questions and assume patient care.
--- NOTE | 2019-10-21 06:34 | NUR ---
Problems reprioritized. Patient report given, questions answered & plan of care reviewed with Jaylene PEÑA.
[2019-10-21 06:47] VITALS: BP 88/53
[2019-10-21 07:00] VITALS: BP 88/53
--- NOTE | 2019-10-21 09:00 | NUR ---
SPOKE WITH PHYSICAL THERAPY TO LET THEM KNOW DR COLBY WANTS AN EVAL AND TX. I TOLD HIM I WOULD PUT THE ORDER IN, BUT WANTED HIM TO KNOW FOR SCHEDULING. HE STATES WE ARE SHORT HANDED TODAY WE MIGHT NOT GET TO IT
[2019-10-21] MEDS: heparin, porcine 5000 units/ml vial SQ SCH ×2 (09:12→19:49)
[2019-10-21] MEDS: levoFLOXACIN-Levaquin 250mg/D5 50 ML IV SCH (09:16)
[2019-10-21 11:00] VITALS: BP 98/56
[2019-10-21] MEDS ORDERED: magnesium 4gm in 100ml NS 100 ML IV PRN (11:40)
[2019-10-21] MEDS ORDERED: potassium CL 10mEq/100ml bag 100 ML IV PRN (11:40)
[2019-10-21] MEDS ORDERED: magnesium Cl slow-release 64mg tablet PO PRN (11:40)
[2019-10-21] MEDS ORDERED: potassium Cl 20 mEq SR tablet PO PRN (11:40)
[2019-10-21] MEDS: potassium Cl 20 mEq SR tablet PO PRN ×2 (12:55→19:49)
--- NOTE | 2019-10-21 15:51 | NUR ---
UNABLE TO AMBULATE PT TO DO ORTHOSTATIC V/S. PT WON'T GET UP. A PT EVAL WAS ORDERED THIS MORNING BUT PHYSICAL THERAPY WON'T BE ABLE TO SEE PT UNTIL TOMORROW
[2019-10-21 18:00] VITALS: BP_SYST 105; BP_SYST 107; BP_DIAS 60
[2019-10-21 21:00] VITALS: BP_SYST 103; BP_SYST 88; BP_SYST 97; BP_DIAS 46; BP_DIAS 56; BP_DIAS 64; BP_DIAS 70
[2019-10-22] MEDS: normal saline 1000ml 1,000 ML IV SCH ×2 (04:00→11:48)
[2019-10-22 05:50] LABS: BASOPHILS # (AUTO) 0.1 X10'3 (0-0.2); BASOPHILS % (AUTO) 0.7 % (0-1); EOSINOPHILS # (AUTO) 0.6 X10'3 (0-0.9); EOSINOPHILS % (AUTO) 7.4 % (0-6); HEMATOCRIT 33.2 % (42.0-52.0); HEMOGLOBIN 11.3 g/dl (14.0-17.9); LYMPHOCYTES # (AUTO) 2.2 X10'3 (1.1-4.8); LYMPHOCYTES % (AUTO) 27.3 % (21-51); MEAN CORPUSCULAR HEMOGLOBIN 30.8 PG (27.0-31.0); MEAN CORPUSCULAR HGB CONC 33.9 g/dL (33.0-36.5); MEAN CORPUSCULAR VOLUME 90.6 FL (78-98); MEAN PLATELET VOLUME 8.4 FL (7.4-10.4); MONOCYTES # (AUTO) 0.6 X10'3 (0-0.9); MONOCYTES % (AUTO) 7.4 % (2-12); NEUTROPHILS # (AUTO) 4.6 X10'3 (1.8-7.7); NEUTROPHILS % (AUTO) 57.2 % (42-75); PLATELET COUNT 259 X10'3 (140-440); RED BLOOD COUNT 3.66 X10'6 (4.70-6.10); RED CELL DISTRIBUTION WIDTH 15.8 % (11.5-14.5); WHITE BLOOD COUNT 8.1 X10'3 (4.5-11.0)
[2019-10-22 06:06] LABS: ALBUMIN 2.4 G/DL (3.4-5.0); ANION GAP 7 (8-16); BLOOD UREA NITROGEN 14 MG/DL (7-18); CALCIUM 7.9 MG/DL (8.5-10.1); CHLORIDE 110 MMOL/L (99-107); CREATININE 1.17 MG/DL (0.60-1.10); GLUCOSE 77 MG/DL (70-104); POTASSIUM 3.8 MMOL/L (3.5-5.1); SODIUM 141 MMOL/L (135-145); TOTAL CARBON DIOXIDE 24.1 MMOL/L (24-32); eGFR 62 ML/MIN
--- NOTE | 2019-10-22 06:15 | NUR ---
Patient in room ORTHO 4022. I have received report from CASEY Alberto and had the opportunity to ask questions and assume patient care.
--- NOTE | 2019-10-22 06:16 | NUR ---
Problems reprioritized. Patient report given, questions answered & plan of care reviewed with CASEY Blanchard.
[2019-10-22 06:52] VITALS: BP 103/58
[2019-10-22 08:00] VITALS: BP_SYST 109; BP_SYST 118; BP_SYST 122; BP_DIAS 72; BP_DIAS 77; BP_DIAS 79
[2019-10-22] MEDS: heparin, porcine 5000 units/ml vial SQ SCH ×2 (08:28→20:37)
[2019-10-22] MEDS: emollient combination-Eucerin 250 ML LOTION TP SCH (08:44)
[2019-10-22 10:00] VITALS: BP 93/57
[2019-10-22] MEDS: levoFLOXACIN 250mg tablet PO SCH (10:57)
[2019-10-22 18:00] VITALS: BP 83/57
--- NOTE | 2019-10-22 18:14 | NUR ---
Problems reprioritized. Patient report given, questions answered & plan of care reviewed with CASEY Pena.
[2019-10-22 20:00] VITALS: BP_SYST 103; BP_SYST 110; BP_SYST 91; BP_DIAS 54; BP_DIAS 57; BP_DIAS 66
[2019-10-22 22:00] VITALS: BP 91/57
[2019-10-23 05:38] LABS: BASOPHILS # (AUTO) 0.1 X10'3 (0-0.2); BASOPHILS % (AUTO) 0.7 % (0-1); EOSINOPHILS # (AUTO) 0.6 X10'3 (0-0.9); EOSINOPHILS % (AUTO) 8.9 % (0-6); HEMATOCRIT 32.3 % (42.0-52.0); HEMOGLOBIN 10.9 g/dl (14.0-17.9); LYMPHOCYTES # (AUTO) 1.7 X10'3 (1.1-4.8); LYMPHOCYTES % (AUTO) 24.4 % (21-51); MEAN CORPUSCULAR HEMOGLOBIN 30.6 PG (27.0-31.0); MEAN CORPUSCULAR HGB CONC 33.6 g/dL (33.0-36.5); MEAN CORPUSCULAR VOLUME 90.8 FL (78-98); MEAN PLATELET VOLUME 8.3 FL (7.4-10.4); MONOCYTES # (AUTO) 0.6 X10'3 (0-0.9); MONOCYTES % (AUTO) 8.4 % (2-12); NEUTROPHILS # (AUTO) 4.1 X10'3 (1.8-7.7); NEUTROPHILS % (AUTO) 57.6 % (42-75); PLATELET COUNT 246 X10'3 (140-440); RED BLOOD COUNT 3.56 X10'6 (4.70-6.10); RED CELL DISTRIBUTION WIDTH 16.3 % (11.5-14.5); WHITE BLOOD COUNT 7.1 X10'3 (4.5-11.0)
[2019-10-23 05:48] LABS: ALBUMIN 2.3 G/DL (3.4-5.0); ANION GAP 8 (8-16); BLOOD UREA NITROGEN 17 MG/DL (7-18); BUN/CREATININE RATIO 15.2 (5.4-32.0); CALCIUM 7.8 MG/DL (8.5-10.1); CHLORIDE 109 MMOL/L (99-107); CREATININE 1.12 MG/DL (0.60-1.10); GLUCOSE 81 MG/DL (70-104); POTASSIUM 3.7 MMOL/L (3.5-5.1); SODIUM 141 MMOL/L (135-145); TOTAL CARBON DIOXIDE 24.1 MMOL/L (24-32); eGFR 66 ML/MIN
--- NOTE | 2019-10-23 06:08 | NUR ---
Problems reprioritized. Patient report given, questions answered & plan of care reviewed with CASEY Cano.
--- NOTE | 2019-10-23 06:10 | NUR ---
Received report from Becky PEÑA
--- NOTE | 2019-10-23 06:16 | NUR ---
Problems reprioritized. Patient report given, questions answered & plan of care reviewed with CASEY Cano.
[2019-10-23 06:44] VITALS: BP 87/51
[2019-10-23] MEDS: heparin, porcine 5000 units/ml vial SQ SCH ×2 (07:27→21:37)
[2019-10-23 08:00] VITALS: BP_SYST 101; BP_SYST 92; BP_SYST 97; BP_DIAS 57; BP_DIAS 65; BP_DIAS 74
[2019-10-23] MEDS: emollient combination-Eucerin 250 ML LOTION TP SCH (08:44)
[2019-10-23 10:00] VITALS: BP 92/57
[2019-10-23] MEDS: levoFLOXACIN 250mg tablet PO SCH (10:43)
[2019-10-23 20:00] VITALS: BP_SYST 104; BP_SYST 92; BP_SYST 95; BP_DIAS 55; BP_DIAS 56; BP_DIAS 57
[2019-10-24 06:00] VITALS: BP 93/55
[2019-10-24 06:21] LABS: BASOPHILS # (AUTO) 0.1 X10'3 (0-0.2); BASOPHILS % (AUTO) 0.9 % (0-1); EOSINOPHILS # (AUTO) 0.6 X10'3 (0-0.9); EOSINOPHILS % (AUTO) 8.5 % (0-6); HEMATOCRIT 34.3 % (42.0-52.0); HEMOGLOBIN 11.5 g/dl (14.0-17.9); LYMPHOCYTES # (AUTO) 2.1 X10'3 (1.1-4.8); LYMPHOCYTES % (AUTO) 29.7 % (21-51); MEAN CORPUSCULAR HEMOGLOBIN 30.1 PG (27.0-31.0); MEAN CORPUSCULAR HGB CONC 33.5 g/dL (33.0-36.5); MEAN CORPUSCULAR VOLUME 90.1 FL (78-98); MEAN PLATELET VOLUME 8.5 FL (7.4-10.4); MONOCYTES # (AUTO) 0.7 X10'3 (0-0.9); MONOCYTES % (AUTO) 9.2 % (2-12); NEUTROPHILS # (AUTO) 3.7 X10'3 (1.8-7.7); NEUTROPHILS % (AUTO) 51.7 % (42-75); PLATELET COUNT 290 X10'3 (140-440); RED BLOOD COUNT 3.81 X10'6 (4.70-6.10); RED CELL DISTRIBUTION WIDTH 15.8 % (11.5-14.5); WHITE BLOOD COUNT 7.1 X10'3 (4.5-11.0)
--- NOTE | 2019-10-24 06:25 | NUR ---
Patient in room ORTHO 4022. I have received report from Kelli and had the opportunity to ask questions and assume patient care.
[2019-10-24 06:27] LABS: ALBUMIN 2.4 G/DL (3.4-5.0); ANION GAP 5 (8-16); BLOOD UREA NITROGEN 16 MG/DL (7-18); BUN/CREATININE RATIO 14.7 (5.4-32.0); CALCIUM 8.6 MG/DL (8.5-10.1); CHLORIDE 109 MMOL/L (99-107); CREATININE 1.09 MG/DL (0.60-1.10); GLUCOSE 82 MG/DL (70-104); POTASSIUM 3.9 MMOL/L (3.5-5.1); SODIUM 141 MMOL/L (135-145); TOTAL CARBON DIOXIDE 26.8 MMOL/L (24-32); eGFR 68 ML/MIN
[2019-10-24 08:00] VITALS: BP_SYST 102; BP_SYST 111; BP_SYST 112; BP_DIAS 55; BP_DIAS 64; BP_DIAS 67
[2019-10-24] MEDS: heparin, porcine 5000 units/ml vial SQ SCH (08:58)
[2019-10-24] MEDS: emollient combination-Eucerin 250 ML LOTION TP SCH (09:01)
[2019-10-24 10:00] VITALS: BP 102/55
[2019-10-24] MEDS ORDERED: LEVO500T2 PO (10:23)
[2019-10-24] MEDS: levoFLOXACIN 250mg tablet PO SCH (11:35)
--- NOTE | 2019-10-24 11:45 | NUR ---
Pt confused, believes he is in [place]. Pt plans to discharge to a local truck stop with plans to head to [place]. CM and aware of pt's plan and okayed discharge.
--- NOTE | 2019-10-24 18:33 | NUR ---
Pt was wheeled downstairs to be driven by I[facility] [address] to pickler helper an Rx. Pt will then be taken to the [facility] truck stop on [address] in [place]. All of pt's belongings were returned to pt.
[2019-10-24] MEDS ORDERED: lactobacillus rhamnosus 10,000 MMU CELLS/CAPSULE PO SCH (20:00)
== END 2019-10-24 18:25 | disposition home or self-care (01) | DRG 683 ==
LOC: ER 11:04 → ED HOLD 14:03 → ORTHO 4S 15:05
PROVIDERS: ADMIT Internal Medicine; ATTEND Internal Medicine
DX: N17.9 Acute kidney failure, unspecified (principal); N39.0 Urinary tract infection, site not specified; L03.119 Cellulitis of unspecified part of limb; E86.0 Dehydration; B96.5 Pseudomonas (aeruginosa) (mallei) (pseudomallei) as the cause of diseases classified elsewhere; D64.9 Anemia, unspecified; W18.39XA Other fall on same level, initial encounter; Z59.0 Homelessness; Y93.89 Activity, other specified; Y92.89 Other specified places as the place of occurrence of the external cause; Y99.8 Other external cause status
CPT/HCPCS: 36415; 70450; 71045; 73130; 76775; 80048; 80053; 80305; 80320; 81001; 82140; 83735; 83880; 84100; 84443; 84484; 85025; 85610; 85730; 87040; 87077; 87081; 87088; 87186; 93005; 97110; 97116; 97161; 97530; 99285; G0378; J1644; J1956; J7030; J7040

== ENCOUNTER 2019-10-25 09:57 | Emergency (ER) | payer OTHER ==
[~2019-10-25] VITALS: Ht 172.7 cm; Wt 68.2 kg
[~2019-10-25 09:57] MED LIST changes: -CEPH250T PO; -CEPH500C5 PO; -FLUC100T9 PO; +LEVO500T2 PO
[2019-10-25 10:12] VITALS: BP 90/64
== END 2019-10-25 11:45 | disposition home or self-care (01) ==
LOC: ER 09:58
DX: S81.801A Unspecified open wound, right lower leg, initial encounter (principal); S81.802A Unspecified open wound, left lower leg, initial encounter; Z59.0 Homelessness; Z56.0 Unemployment, unspecified; Z79.899 Other long term (current) drug therapy; X58.XXXA Exposure to other specified factors, initial encounter; Y93.89 Activity, other specified; Y92.89 Other specified places as the place of occurrence of the external cause; Y99.8 Other external cause status
CPT/HCPCS: 99284

== ENCOUNTER 2019-10-26 18:47 | Emergency (ER) | payer OTHER ==
[~2019-10-26] VITALS: Ht 170.2 cm; Wt 65.0 kg
[2019-10-26 18:52] VITALS: BP 110/61
== END 2019-10-26 20:52 | disposition home or self-care (01) ==
LOC: ER 18:50
DX: L03.115 Cellulitis of right lower limb (principal); L03.116 Cellulitis of left lower limb; Z59.0 Homelessness; Z56.0 Unemployment, unspecified; Z79.899 Other long term (current) drug therapy
CPT/HCPCS: 99284

== ENCOUNTER 2019-10-27 08:46 | Emergency (ER) | payer MEDICAID, OTHER ==
[~2019-10-27] VITALS: Ht 180.3 cm; Wt 60.0 kg
[2019-10-27 10:49] LABS: CLARITY,URINE CLEAR (Clear); COLOR,URINE YELLOW (Yellow); GLUCOSE, URINE NEGATIVE (Neg); KETONES,URINE NEGATIVE (Neg); LEUKOCYTE ESTERASE ,URINE NEGATIVE (Neg); NITRITES, URINE NEGATIVE (Neg); OCCULT BLOOD,URINE TRACE-INTACT (Neg); PH,URINE 5.5 (4.8-8.0); PROTEIN,URINE NEGATIVE (Neg); UROBILINOGEN,URINE 0.2 E.U/dL (0.2-1.0)
--- NOTE | 2019-10-27 11:00 | NUR ---
PATIENT REPORTS THAT HE USED TO LIVE IN [place] WHERE HE WAS RECEIVING WOUND CARE FOR HIS LEGS. HIS LEGS ARE REDDENED FROM THE KNEE DOWN.
[2019-10-27 11:02] LABS: UA COLLECTION TYPE URINAL
[2019-10-27 11:03] LABS: BACTERIA,URINE FEW /HPF (Neg); MUCUS STRANDS FEW /LPF (Neg); RBC,URINE 0-2 /HPF (0-2); SQUAMOUS EPITHELIAL CELL,UR FEW /LPF (FEW); TRANSITIONAL EPI CELLS,URINE FEW /HPF; WBC,URINE 0-4 /HPF (0-4)
[2019-10-27 13:52] LABS: BASOPHILS # (AUTO) 0.1 X10'3 (0-0.2); EOSINOPHILS # (AUTO) 0.1 X10'3 (0-0.9); EOSINOPHILS % (AUTO) 1.5 % (0-6); HEMATOCRIT 35.3 % (42.0-52.0); HEMOGLOBIN 11.8 g/dl (14.0-17.9); LYMPHOCYTES # (AUTO) 1.8 X10'3 (1.1-4.8); MEAN CORPUSCULAR HEMOGLOBIN 30.2 PG (27.0-31.0); MEAN CORPUSCULAR HGB CONC 33.6 g/dL (33.0-36.5); MEAN PLATELET VOLUME 8.5 FL (7.4-10.4); MONOCYTES # (AUTO) 0.6 X10'3 (0-0.9); MONOCYTES % (AUTO) 7.7 % (2-12); NEUTROPHILS % (AUTO) 65.8 % (42-75); PLATELET COUNT 246 X10'3 (140-440); RED BLOOD COUNT 3.92 X10'6 (4.70-6.10); RED CELL DISTRIBUTION WIDTH 16.8 % (11.5-14.5); WHITE BLOOD COUNT 7.6 X10'3 (4.5-11.0)
[2019-10-27 14:00] LABS: ALANINE AMINOTRANSFERASE 17 U/L (12-78); ALBUMIN 3.1 G/DL (3.4-5.0); ALBUMIN/GLOBULIN RATIO 0.6 (1.1-1.5); ALKALINE PHOSPHATASE 74 IU/L (46-116); ANION GAP 6 (8-16); ASPARTATE AMINO TRANSFERASE 18 U/L (10-37); BILIRUBIN,TOTAL 0.8 MG/DL (0.1-1.0); BLOOD UREA NITROGEN 25 MG/DL (7-18); BUN/CREATININE RATIO 19.4 (5.4-32.0); CALCIUM 8.5 MG/DL (8.5-10.1); CHLORIDE 108 MMOL/L (99-107); CREATININE 1.29 MG/DL (0.60-1.10); GLUCOSE 82 MG/DL (70-104); POTASSIUM 4.2 MMOL/L (3.5-5.1); SODIUM 142 MMOL/L (135-145); TOTAL CARBON DIOXIDE 28.4 MMOL/L (24-32); eGFR 56 ML/MIN
--- NOTE | 2019-10-27 21:00 | NUR ---
Pt turned and repositioned with minimal assistance.
--- NOTE | 2019-10-27 22:00 | NUR ---
Pt resting quietly, respirations normal, no s/s of distress.
--- NOTE | 2019-10-27 23:00 | NUR ---
Pt resting quietly, respirations normal, no s/s of distress.
--- NOTE | 2019-10-28 00:38 | NUR ---
Pt resting quietly, respirations normal, no s/s of distress.
--- NOTE | 2019-10-28 09:03 | NUR ---
case management and social work case manager paged
--- NOTE | 2019-10-28 20:55 | NUR ---
Patient resting quietly, no signs or symptoms of distress.
--- NOTE | 2019-10-29 00:16 | NUR ---
Pt appears to be sleeping, lying on his right side with blankets coverinig to his shouders. RR 14 and unlabored. Sitter within vew of pt aat.
--- NOTE | 2019-10-29 01:43 | NUR ---
Patient sleeping comfortaby on left side, chest rise and fall witnessed. Respirations even and regular.
--- NOTE | 2019-10-29 10:15 | NUR ---
Spoke with Jailene of [facility] regarding cognitive eval. CASEY Segura is to return call regarding.
--- NOTE | 2019-10-29 12:30 | NUR ---
Maite from updated on awaiting consult for cognitive eval. Matie reports she will be contacting
--- NOTE | 2019-10-29 13:14 | NUR ---
Received VO from provider Hal ESTEVEZ for PT eval/tx for pt.
--- NOTE | 2019-10-29 17:05 | NUR ---
CASEY David performed MOCA exam. Patient tested 10/21.
--- NOTE | 2019-10-29 19:00 | NUR ---
The patient is resting on his bed. He ate 100% of his evening meal. He was polite during the evening assessment. He has not been observed up out of bed. He stated that he just got in at the [facility]. He was able to state where he was at and the current year.
--- NOTE | 2019-10-29 21:39 | NUR ---
The patient appears to be sleeping.
--- NOTE | 2019-10-29 23:35 | NUR ---
The patient appears to be sleeping
--- NOTE | 2019-10-30 01:51 | NUR ---
The patient appears to be sleeping. Voided 450ml in the urinal. Periodically he is changing his position.
--- NOTE | 2019-10-30 04:44 | NUR ---
The patient appears to be sleeping well during the night
--- NOTE | 2019-10-30 06:56 | NUR ---
REPORT RECEIVED, CARE ASSUMED. PT SLEEPING COMFORTABLY IN HOSPITAL BED IN NOT NOTED DISTRESS
--- NOTE | 2019-10-30 07:51 | NUR ---
Patient sleeping, in no apparent distress, will continue to monitor.
--- NOTE | 2019-10-30 08:26 | NUR ---
Safety meal tray delivered. Patient awake and eating breakfast.
--- NOTE | 2019-10-30 09:26 | NUR ---
Patient cleaned up and new gown on. Linens changed. Patient now resting comfortably, will continue to monitor.
--- NOTE | 2019-10-30 11:28 | NUR ---
Patient sleeping, with no signs of distress, will continue to monitor.
--- NOTE | 2019-10-30 12:36 | NUR ---
Patient sleeping, repositioned self to right side, no signs of distress. Will continue to monitor.
--- NOTE | 2019-10-30 13:19 | NUR ---
Psych PA consult & MOCA assessment with patient. Addendum: 10/30/19 at 1441 by SHARLENEHO Correction; COUNTY HOME DEMONSTRATION AGENT from [facility] completing MOCA assessment.
--- NOTE | 2019-10-30 13:21 | NUR ---
Safety meal tray delivered to patient. Patient awake and eating lunch.
--- NOTE | 2019-10-30 14:35 | NUR ---
relieving RN for lunch, pt is being evaluated by BUNKER WORKER [facility], from social media marketer will return to talk with pt
--- NOTE | 2019-10-30 15:30 | NUR ---
Patient resting comfortably, in no signs of distress, lying on back. Will continue to monitor.
--- NOTE | 2019-10-30 16:34 | NUR ---
Patient resting comfortably, in no signs of distress. Urinal emptied, will continue to monitor.
--- NOTE | 2019-10-30 17:29 | NUR ---
Spoke with Dr. Yang regarding conservatorship. Dr. Yang will be in tomorrow to complete MOCA assessment and further assess for conservatorship.
--- NOTE | 2019-10-30 17:32 | NUR ---
Patient resting comfortably, vital signs being completed. Patient lying on back with knees up. Will continue to monitor.
--- NOTE | 2019-10-30 18:24 | NUR ---
Patient report given to Daphnie PEÑA and all questions answered. Patient stable at time of transfer of care.
--- NOTE | 2019-10-30 18:46 | NUR ---
ASSUMED CARE OF PASTIENT SITTING UP RIGHT IN BED EATING DINNER. PT HAS NO COMPLAINTS OF DISCOMFORT AND DENIES ANY NEEDS AT THIS TIME . STATES " I AM ENJOYING MY DINNER THANK YOU GOD BLESS "
--- NOTE | 2019-10-30 19:56 | NUR ---
PT FINISHED UP DINNER. GOOD APPETITE. NOW RESTING PEACEFULLY ON HIS RIGHT SIDE RESP UNLABORED
--- NOTE | 2019-10-30 20:58 | NUR ---
PT RESTING ON LEFT SIDE KNESS SLIGHTY BENT NO C/O DISCOMFORT RESP UNLABORED WILL CONTINUE TO MONITOR
--- NOTE | 2019-10-30 22:17 | NUR ---
PT SLEEPING ON HIS BACK RESPIRATIONS UNLABORED . PT INDEPENDENTLY REPOSITINS SELF WILL CONTINUE TO MONITOR AND REASSESS
--- NOTE | 2019-10-30 23:53 | NUR ---
NO CHANGES TO PREVIOUS ASSESSMENT . PT WITHOUT COMPLAINTS AT THIS TIME . RESP UNLABORED WILL CONTINUE TO MONITOR ANS REASSESS NEEDED
--- NOTE | 2019-10-31 02:07 | NUR ---
pt sleeping on his right side comfortably . respirations unlabored no changes to previous assesments will continue to monitor
--- NOTE | 2019-10-31 04:15 | NUR ---
PT STILL SLEEPING PEACFULLY , SELF POSTIONS, RESP EVEN AND UNLABORED , WILL CONTINUE TO MONITOR AND REASSESS
--- NOTE | 2019-10-31 04:16 | NUR ---
PT SLEEPING ON LEFT SIDE , AUROSABLE TO TOUCH WILL CONTINUE TO MONITOR NEEDED
--- NOTE | 2019-10-31 06:03 | NUR ---
PT ARUSOABLE UPON VS ASSESMENT . CONTENT AND POLITE STATED HE WOULD LIKE TO REST A BIT MORE WHEN ASKED IF HE WOULD LIKE TO HELP REPOSTION IN BED
--- NOTE | 2019-10-31 06:41 | NUR ---
Flores camarena in [facility] - 10/31/19 at 0642 by [email or web address] pt here to myesha pt.
--- NOTE | 2019-10-31 06:42 | NUR ---
PT here to myesha pt.
--- NOTE | 2019-10-31 07:15 | NUR ---
pt refuses need to use restroom at this time. Will continue to monitor.
--- NOTE | 2019-10-31 07:38 | NUR ---
Case management Diane roman pt has been evaled by PT. Stated to call CB to see about acceptance. Attempted to call with no answer, will try again soon.
--- NOTE | 2019-10-31 07:58 | NUR ---
PT RESTING ON RIGHT SIDE RR EQUAL AND UNLABORED
--- NOTE | 2019-10-31 09:04 | NUR ---
called CB to see if accepting pt. Stated will speak to charge nurse and call back.
[2019-10-31] MEDS ORDERED: NO HOME MEDS (09:19)
--- NOTE | 2019-10-31 10:26 | NUR ---
APS at bedside talking with pt.
--- NOTE | 2019-10-31 11:08 | NUR ---
[facility] charge nurse stated cannot accept pt without [facility] evaluation, Dr Waters notified and stated pt does not meet criteria and to let paola from know. Page sent to CM awaiting call back.
--- NOTE | 2019-10-31 11:12 | NUR ---
Called to [facility] to see if Dr Faulkner will continue to eval pt for MOCA assessment. Charge nurse will ask and send him down if needed.
--- NOTE | 2019-10-31 12:10 | NUR ---
Dr. Faulkner here to myesha ziegler.
--- NOTE | 2019-10-31 14:40 | NUR ---
Page to SS to see about next step for this pt. Awaiting call back.
--- NOTE | 2019-10-31 16:09 | NUR ---
pt alert in bed, no distress noted. will continue to monitor.
--- NOTE | 2019-10-31 16:40 | NUR ---
PT RESTING EYES CLOSED RR EQUAL AND UNLABORED
--- NOTE | 2019-10-31 18:47 | NUR ---
Pt awake in bed. This RN brought his dinner, and repositioned pt to eat better. Assisted in setting up dinner try: opening packages, etc. Pt pleasant, cooperative and thankful for assistance. This RN informed pt that once pt finished dinner, a compelte bed change and incontinence care of bowel would need to be performed; pt verbalized understanding.
--- NOTE | 2019-10-31 19:40 | NUR ---
Pt eating dinner independently. He is agreeable to assessment primarily answers closed ended questions. He is able to make his needs known, but incontinent of stool and requires some assistance with his urinal. Mood: "I'm good just need some help" and states he is tired and cold. Does not like his feet becoming uncovered in particular; it makes him uncomfortable. Denies SI, HI, A/VH. Pt is [place]. Affect: Constricted. Behavior: Pleasant, Cooperative, wanting to rest.
--- NOTE | 2019-10-31 20:02 | NUR ---
Complete bed change. Pt cleaned of stool, provided new gown. Washed pt face. Pt stated "Thank you." This RN told pt to alert this RN of any needs, and that frequent checks would be occurring. Educated pt that this RN would reposition pt if noticed that he is not turning on his own. Pt verbalized understanding. "You do whatever you need to do miss. Very good job." Pt now attempting to rest.
--- NOTE | 2019-10-31 22:49 | NUR ---
Pt repositioning self. Not soiled at this time, resting comfortably on r side. Breathing unlabored.
--- NOTE | 2019-11-01 01:16 | NUR ---
Provided bowel care and assisted pt with urinal, although he was initally reluctant for help. Pt gown, top sheet and chucks changed. Provided with two warm blankets and repositioned pt higher in the bed. Pt expressed gratitude then went back to sleep.
--- NOTE | 2019-11-01 04:52 | NUR ---
Pt sleeping on r side, no distress noted. Chucks clean. Emptied urinal.
--- NOTE | 2019-11-01 07:15 | NUR ---
Patient is sleeping. Respirations unlabored. NAD at this time.
--- NOTE | 2019-11-01 08:00 | NUR ---
offered to take pt to shower but he refused
--- NOTE | 2019-11-01 08:32 | NUR ---
Assisted pt with opening packages and sitting up in bed for breakfast.
--- NOTE | 2019-11-01 09:44 | NUR ---
PT AMBULATED FROM BED, AROUND NSG STATION, AND BACK TO BED USING WALKER WITH ASSIST OF JOSE HOLM. PT INDRA WELL. PT STATES HE WOULD LIKE TO DO IT AGAIN LATER TODAY
--- NOTE | 2019-11-01 09:44 | NUR ---
Flores camarena in [facility] - 11/01/19 at 0945 by PATIENCE PT AMBULATED FROM BED, AROUND NS STATION
--- NOTE | 2019-11-01 10:52 | NUR ---
PT RESTING ON BACK WITH EYES CLOSED RR EQUAL AND UNLABORED
--- NOTE | 2019-11-01 13:31 | NUR ---
PT SITTING UP IN BED EATING LUNCH
--- NOTE | 2019-11-01 17:18 | NUR ---
PT RESTING WITH EYES CLOSED RR EQUAL AND UNLABORED
--- NOTE | 2019-11-01 17:50 | NUR ---
PT AWAKE GETTING VS TAKEN BY THE TECH. PT DENIES ANY NEEDS AT THIS TIME
--- NOTE | 2019-11-01 19:59 | NUR ---
Pt. resting quietly, laying on right side of body, eyes closed. Breathing WNL, no S/S of distress.
--- NOTE | 2019-11-01 22:47 | NUR ---
Pt. resting quietly, laying on back, respirations WNL, no S/S of distress
--- NOTE | 2019-11-02 00:13 | NUR ---
Pt. defecated in bed, linens and gown changed, pt. cleaned up.
--- NOTE | 2019-11-02 01:38 | NUR ---
pt sleeping in bed on left side with no apparent distress. pt respirations even and equal. will continue to monitor.
--- NOTE | 2019-11-02 03:30 | NUR ---
PT SLEEPING PEACEFULLY ON LEFT SIDE. NO S/S DISTRESS. RESPIRATIONS EVEN AND UNLABORED. WILL CONTINUE TO MONITOR.
--- NOTE | 2019-11-02 06:41 | NUR ---
PT TURNED HIMSELF FROM HIS RIGHT SIDE TO HIS LEFT, APPEARS TO BE RESTING COMFORTABLY, NO S/S OF DISTRESS.
--- NOTE | 2019-11-02 11:35 | NUR ---
PT TURNED FROM HIS BACK TO HIS RIGHT SIDE, RESTING COMFORTABLY, NO S/S OF DISTRESS.
--- NOTE | 2019-11-02 12:30 | NUR ---
pt continues to sleep, awoke to ask if pt wanted to change positions, pt declined. pt offered supplies to clean himself up but refused.
--- NOTE | 2019-11-02 12:33 | NUR ---
PT TURNED FROM BACK ONTO HIS LEFT SIDE, RESTING COMFORTABLY. DENIES BED BATH OR ORAL HYGIENE CARE AT THIS TIME.
--- NOTE | 2019-11-02 18:45 | NUR ---
Pt is cooperative with 1:1 assessment. He is reminded to turn to prevent skin breakdown. Pt verbalizes understanding. Pt's bilat LE wrapped in clean coband on dayshift. Pt's bedding is clean and dry.
--- NOTE | 2019-11-02 20:40 | NUR ---
Pt is resting quietly in bed. Pt is turned onto L side. Pt thanks greeting card writer and says, "God bless you, you are a good helper." Pt given a warm blanket.
--- NOTE | 2019-11-02 23:01 | NUR ---
PT asleep on back RR 14. No signs or symptoms of distress observed.
--- NOTE | 2019-11-03 01:39 | NUR ---
Pt is prompted to turn in bed. Pt assisted. PT fell back asleep after turning.
--- NOTE | 2019-11-03 03:00 | NUR ---
Pt used the urinal, and PT turned in bed.
--- NOTE | 2019-11-03 06:04 | NUR ---
Pt resting in bed, prompted to turn. Pt complied. Checked bedding, clean and dry.
--- NOTE | 2019-11-03 07:05 | NUR ---
Pt is resting in bed peacefully at this time. No distress observed. Will continue to monitor.
--- NOTE | 2019-11-03 08:57 | NUR ---
Pt is sitting in semi fowlers position eating breakfast. Coban is in place on bilateral lower exctremities. Pt is pleasant and cooperative with care and denies complaints at this time. Draw sheet in place for repositioning and unit techs repositioned patient. Linens clean and dry and straightened to prevent shearing.
--- NOTE | 2019-11-03 10:49 | NUR ---
Breaking primary RN, pt supine in bed, regular breathing observed
--- NOTE | 2019-11-03 12:30 | NUR ---
Breaking primary RN, pt is supine in bed, eyes closed, regular breathing present, no agitation observed
--- NOTE | 2019-11-03 13:52 | NUR ---
Pt is sitting in bed in the semi fowlers position eating lunch. No distress observed. Linens are clean and dry at this time. Pt continues to use the urinal and has clear, lindsay colored urine.
--- NOTE | 2019-11-03 15:00 | NUR ---
Pt is resting in bed peacefully at this time. No distress observed.
--- NOTE | 2019-11-03 17:00 | NUR ---
Pt is in bed in the semi fowlers at this time. No distress observed
--- NOTE | 2019-11-03 19:50 | NUR ---
pt laying in bed in no apparent distress
--- NOTE | 2019-11-03 21:36 | NUR ---
pt laying on left side, respirations even. in no apparent distress
--- NOTE | 2019-11-03 22:26 | NUR ---
pt in bed, appears to be sleeping. respirations even, in no apparent distress
--- NOTE | 2019-11-04 00:15 | NUR ---
pt apprears to be sleeping in bed. respirations even and unlabored
--- NOTE | 2019-11-04 01:41 | NUR ---
pt appears to be sleeping. respirations even and unlabored
--- NOTE | 2019-11-04 05:40 | NUR ---
pt resting comfortably in bed, in no apparent distress with no needs identified at this time
[2019-11-04 08:30] LABS: BASOPHILS # (AUTO) 0.1 X10'3 (0-0.2); BASOPHILS % (AUTO) 0.7 % (0-1); EOSINOPHILS # (AUTO) 0.5 X10'3 (0-0.9); EOSINOPHILS % (AUTO) 6.2 % (0-6); HEMATOCRIT 38.6 % (42.0-52.0); HEMOGLOBIN 12.9 g/dl (14.0-17.9); LYMPHOCYTES # (AUTO) 2.8 X10'3 (1.1-4.8); LYMPHOCYTES % (AUTO) 31.4 % (21-51); MEAN CORPUSCULAR HEMOGLOBIN 30.2 PG (27.0-31.0); MEAN CORPUSCULAR HGB CONC 33.4 g/dL (33.0-36.5); MEAN CORPUSCULAR VOLUME 90.4 FL (78-98); MEAN PLATELET VOLUME 8.3 FL (7.4-10.4); MONOCYTES # (AUTO) 0.6 X10'3 (0-0.9); MONOCYTES % (AUTO) 7.2 % (2-12); NEUTROPHILS # (AUTO) 4.8 X10'3 (1.8-7.7); NEUTROPHILS % (AUTO) 54.5 % (42-75); PLATELET COUNT 250 X10'3 (140-440); RED BLOOD COUNT 4.27 X10'6 (4.70-6.10); RED CELL DISTRIBUTION WIDTH 16.5 % (11.5-14.5); WHITE BLOOD COUNT 8.8 X10'3 (4.5-11.0)
[2019-11-04 08:58] LABS: ALANINE AMINOTRANSFERASE 14 U/L (12-78); ALBUMIN 2.9 G/DL (3.4-5.0); ALBUMIN/GLOBULIN RATIO 0.6 (1.1-1.5); ALKALINE PHOSPHATASE 79 IU/L (46-116); ANION GAP 9 (8-16); ASPARTATE AMINO TRANSFERASE 12 U/L (10-37); BILIRUBIN,TOTAL 0.4 MG/DL (0.1-1.0); BLOOD UREA NITROGEN 24 MG/DL (7-18); BUN/CREATININE RATIO 22.6 (5.4-32.0); CHLORIDE 104 MMOL/L (99-107); CREATININE 1.06 MG/DL (0.60-1.10); GLUCOSE 79 MG/DL (70-104); POTASSIUM 4.5 MMOL/L (3.5-5.1); SODIUM 137 MMOL/L (135-145); TOTAL CARBON DIOXIDE 24.4 MMOL/L (24-32); TOTAL PROTEIN 7.9 G/DL (6.4-8.2); eGFR 70 ML/MIN
[2019-11-04 09:07] LABS: CALCIUM 8.2 MG/DL (8.5-10.1)
--- NOTE | 2019-11-04 10:13 | NUR ---
COMPLETE BED BATH GIVEN AND SKIN ASSESSMENT. REDDENED, BLANCHABLE COCCYX NOTED. NON-BLANCHABLE REDNESS NOTED TO LEFT HIP AREA WITHOUT BREAKDOWN AND PHOTO TAKEN. PATIENT INSTRUCTED TO CHANGE POSITIONS FREQUENTLY THROUGHOUT THE DAY (EVERY 2 HOURS) AND VERBALIZED UNDERSTANDING. DRY, FLAKY SKIN AND HEALING SCABS NOTED TO BILAT SHINS. CLEAN LINENS AND SCRUBS APPLIED. SIDERAILS UP X 2 FOR SAFETY.
--- NOTE | 2019-11-04 11:24 | NUR ---
pt is resting comfortably at this time. no signs of distress
--- NOTE | 2019-11-04 12:03 | NUR ---
pt resting comfortably at this time. no signs of distress noted
--- NOTE | 2019-11-04 12:20 | NUR ---
wound nurse here to evaluate and dress wounds
--- NOTE | 2019-11-04 12:54 | NUR ---
pt is resting comfortbaly at this time. no signs of distress noted.
--- NOTE | 2019-11-04 13:41 | NUR ---
[facility] POC to assess pt's wounds per WO consultation. Pt has chronic wounds on BLE, though these wounds are all intact eschar at this time with no drainage or open areas present. Clusters of eschar mostly present on anterior surfaces of both lower legs. BLE are also discolored, reddened but blanchable and not swollen. PT also has bilateral great toenail concerns where it appears the nail beds may have been traumatized and there is dried eschar present, though the areas are asymptomatic. Pt has chronic scarring on the prominences of the great trochanter on both sides, though no additional redness was noted. As all wounds appear to be covered with dry, intact eschar, recommend leaving all DIGITIZER OPERATOR and protect from trauma at this time. Pt is awaiting placement at this time, and in the future, pt may need debridement and removal of eschar for progression of healing, but not recommended at this time.
--- NOTE | 2019-11-04 13:45 | NUR ---
wound nurse states" wounds to legs should be randa for better healing" left hip looks like a old pressure wound and to keep off loading pts weight. pt is resting at this time.
--- NOTE | 2019-11-04 14:16 | NUR ---
pt is resting comfortably at this time. no signs of distrerss.
--- NOTE | 2019-11-04 15:06 | NUR ---
pt is resting comfortably at this time. no signs of distress
--- NOTE | 2019-11-04 16:27 | NUR ---
pt was given snacks, meal tray removes, and urinal emptied of lindsay color urine
--- NOTE | 2019-11-04 16:51 | NUR ---
pt ambulating in hallway with walker with sba. pt has no signs of distress.
--- NOTE | 2019-11-04 17:17 | NUR ---
PT WALKED AROUND NURSES STATION 6 LAPS WITH USE OF A WALKER DEVIDE. PT HAD A STEADY GAIT, NO S/S OF DISTRESS
--- NOTE | 2019-11-04 18:30 | NUR ---
Received report and assumed care of patient from CASEY Bautista.
--- NOTE | 2019-11-04 19:00 | NUR ---
Patient eating dinner. No c/o.
--- NOTE | 2019-11-04 21:29 | NUR ---
The patient is asleep on his back. He is uncooperative with turning to protect his skin. Will continue to attempt turning him through the night.
--- NOTE | 2019-11-05 00:50 | NUR ---
Pt sleeping, lying on his back with blankets covering to his chest. RR14 and unlabored. Urinal emptied , 400 cc's light lindsay urine. Sitter and RN within view of Pt AAT.
--- NOTE | 2019-11-05 01:54 | NUR ---
The patient is awake and has just used urinal. He is lying on his back.
--- NOTE | 2019-11-05 03:10 | NUR ---
The patient is awake. He is lying quietly in bed being appropriate.
--- NOTE | 2019-11-05 05:16 | NUR ---
Patient continues to sleep. RR unlabored. No s/s of distress.
--- NOTE | 2019-11-05 07:11 | NUR ---
paged school social worker and case management for dc planning update
--- NOTE | 2019-11-05 08:14 | NUR ---
wound care called. message left
--- NOTE | 2019-11-05 10:14 | NUR ---
packet faxed to [facility]
--- NOTE | 2019-11-05 11:20 | NUR ---
[place] [employer] CAME TO HELP ID PATIENT. THE NAME, , SS DO NOT MATCH.
--- NOTE | 2019-11-05 12:00 | NUR ---
PT IS RESTING. NO CONCERNS AT THIS TIME
--- NOTE | 2019-11-05 13:00 | NUR ---
[facility] CLEARED PT
--- NOTE | 2019-11-05 13:00 | NUR ---
PT IS RESTING. NO CONCERNS AT THIS TIME
--- NOTE | 2019-11-05 14:00 | NUR ---
PT AMBULATING WITH WALKER
--- NOTE | 2019-11-05 14:29 | NUR ---
[facility] ATY BEDSIDE FOR EVALALUATION NOW
--- NOTE | 2019-11-05 15:00 | NUR ---
NEURO CONSULT DONE
--- NOTE | 2019-11-05 16:17 | NUR ---
PT IS RESTING. NO CONCERNS AT THIS TIME
--- NOTE | 2019-11-05 17:00 | NUR ---
PT RESTING IN BED.
--- NOTE | 2019-11-05 19:00 | NUR ---
Pt finished eating, tray taken. Pt states he is comfortable, no needs at this time.
--- NOTE | 2019-11-05 20:00 | NUR ---
Pt resting comfortably, respirations normal, no s/s of distress.
--- NOTE | 2019-11-05 21:16 | NUR ---
Pt resting comfortably, respirations normal, no s/s of distress.
--- NOTE | 2019-11-05 23:32 | NUR ---
The patient appears to be sleeing.
--- NOTE | 2019-11-06 01:15 | NUR ---
The patient appears to be sleeping.
--- NOTE | 2019-11-06 04:23 | NUR ---
The patient appears to be sleeping
--- NOTE | 2019-11-06 07:17 | NUR ---
PT IS SLEEPING, RESPIRATIONS SPONTANEOUS, EVEN AND UNLABORED, NO S/S OF DISTRESS, DISCOMFORT OR AGITATION.
--- NOTE | 2019-11-06 08:56 | NUR ---
Nutrition consult received. Awaiting pt to be admitted to floor so can follow per protocol. PO 100% meals in ER. Addendum: 11/06/19 at [address] Amended: Links added.
--- NOTE | 2019-11-06 12:35 | NUR ---
[employer]ICA[employer]LECTION SPECIALIST, [facility] [employer] CALLED ME BACK, STATES [facility] SUBMITTED FORMS TO START PROCESS OF CONSERVING PT, PUBLIC GIOVANA WILL EVENTUALLY COME IN TO EVALUATE PT, [facility] STATES ED RN TO [facility] MEDICAID COLLECTION SPECIALIST EVERY COUPLE OF DAYS TO CHECK FOR UPDATE.
--- NOTE | 2019-11-06 16:41 | NUR ---
PT MOVED VIA BED FROM BED 26 TO BED 22, BEDSIDE TRAY TABLES, URINAL AND WALKER MOVED TO NEW ROOM, PT CANE PLACED ON COUNTER BEHIND NURSES STATION
--- NOTE | 2019-11-06 19:26 | NUR ---
CONNOR is here to interview the patient
--- NOTE | 2019-11-06 20:56 | NUR ---
The patient given pericare and had been incontinent of stool. Lotion applied to dry skin on his legs. He was repositoned off his right hip.
--- NOTE | 2019-11-06 21:50 | NUR ---
Per [employer] they will return in the am to finger print the patient.
--- NOTE | 2019-11-06 23:17 | NUR ---
The patient appears to be sleeping
--- NOTE | 2019-11-07 00:42 | NUR ---
The patient was incontinent of stool. Hygiene and bed linens provided. Patient positioned off of his right hip
--- NOTE | 2019-11-07 03:02 | NUR ---
The patient is currently sleeping. He awakens periodically to use the urinal
--- NOTE | 2019-11-07 04:48 | NUR ---
THe patient appears to be sleeping
--- NOTE | 2019-11-07 08:30 | NUR ---
pt awake, he is max assist with putting on shoes wants to ambulate and is SBA with FWW
--- NOTE | 2019-11-07 08:36 | NUR ---
PT AMBULATORY TO BATHROOM WITH WALKER, PT WALKS INDEPENDTENTLY AND HAS STEADY BUT SLOW GAIT
--- NOTE | 2019-11-07 09:18 | NUR ---
pt is back to bed sleeping NAD
--- NOTE | 2019-11-07 11:04 | NUR ---
PT RESTING ON LEFT SIDE RR EQUAL AND UNLABORED
--- NOTE | 2019-11-07 12:42 | NUR ---
KIMBER WITH MONALISA AKHTAR AT BEDSIDE SPEKAING WITH PT APPLICATION FOR SERVICES HAS BEEN SUBMITTED TO THEM FOR REVIEW.
--- NOTE | 2019-11-07 13:45 | NUR ---
relieving RN for break, police at bedside to do finger prints to attempt to properly ID pt, pt is calm and cooperative
--- NOTE | 2019-11-07 16:30 | NUR ---
PT SLEEPING, RESPIRATIONS SPONTANEOUS, EVENE, AND UNLABORED, NO S/S OF DISTRESS, DISCOMFORT OR AGITATION AT THIS TIME. PT IN LINE OF SITE OF NURSES STATION.
--- NOTE | 2019-11-07 18:56 | NUR ---
Pt is laying supine in semi-fowlers position in bed having dinner. Introduced self to pt. He appears to be in no distress.
--- NOTE | 2019-11-07 20:13 | NUR ---
PT IS LAYING IN SUPINE POSITION, APPEARS TO BE COMFORTABLE AFTER EATING HIS DINNER. RESPIRATIONS ARE EVEN AND UNLABORED, APPEARS TO BE IN NO DISTRESS. THERE IS NO AGITAION OBSERVED. PT REMAINS IN LINE OF SIGHT OF NURSE'S STATION.
--- NOTE | 2019-11-07 22:05 | NUR ---
PT APPEARS TO BE SLEEPING IN SUPINE POSITION. RESPIRATIONS ARE EVEN AND UNLABORED. APPEARS TO BE IN NO DISTRESS.
--- NOTE | 2019-11-08 00:09 | NUR ---
PT APPEARS TO BE SLEEPING ON HIS RIGHT SIDE. RESPIRATIONS ARE EVEN AND UNLABORED. APPEARS TO BE IN NO DISTRESS.
--- NOTE | 2019-11-08 02:36 | NUR ---
PT IS LAYING ON HIS RIGHT SIDE. DOES NOT APPEAR TO BE SLEEPING AT THE MOMENT. RESPIRATIONS ARE EVEN AND UNLABORED. DOES NOT APPEAR TO BE IN ANY DISTRESS.
--- NOTE | 2019-11-08 05:13 | NUR ---
PT APPEARS TO BE SLEEPING, LAYING ON HIS RIGHT. APPEARS TO BE IN NO DISTRESS.
--- NOTE | 2019-11-08 06:39 | NUR ---
Patient sleeping on right side. No distress observed. Continue to monitor.
--- NOTE | 2019-11-08 08:20 | NUR ---
Patient sitting up and eating breakfast. No distress observed. Continue to monitor.
--- NOTE | 2019-11-08 10:39 | NUR ---
Patient sleeping supine, leaning to the right. No distress observed. Continue to monitor.
--- NOTE | 2019-11-08 11:38 | NUR ---
Breaking Primary RN, pt is supine in bed, eyes closed, regular breathing present, no s/s of agitation observed
--- NOTE | 2019-11-08 18:43 | NUR ---
PT IS SITTING COMFORTABLY IN BED IN A SUPINE POSITION. PT IS CURRENTLY EATING DINNER. RESPIRATIONS ARE EVEN AND UNLABORED. DOES NOT APPEART O BE IN ANY DISTRESS.
--- NOTE | 2019-11-08 20:20 | NUR ---
pt is laying comfortab in his bed after finishing his dinner which he only ate 50% of. still complaining of leg pain and states that he has not been able to sleep in a while. However notes from previous nights indicate he has been getting plenty of sleep. Indicated pt to let this RN know if he needed to use the bathroom or felt like he was soiled. Respirations are even and unlabored and appears to be in no distress.
--- NOTE | 2019-11-08 22:05 | NUR ---
pt appears to be sleeping comfortably in a supine position. Respirations are even and unlabored. Appears to be in no distress.
[2019-11-09 01:12] LABS: CLARITY,URINE SLIGHTLY CLOUDY (Clear); COLOR,URINE YELLOW (Yellow); GLUCOSE, URINE NEGATIVE (Neg); KETONES,URINE NEGATIVE (Neg); LEUKOCYTE ESTERASE ,URINE SMALL (Neg); NITRITES, URINE NEGATIVE (Neg); OCCULT BLOOD,URINE TRACE-INTACT (Neg); PROTEIN,URINE NEGATIVE (Neg); UROBILINOGEN,URINE 0.2 E.U/dL (0.2-1.0)
[2019-11-09 01:14] LABS: UA COLLECTION TYPE CLN CATCH MIDSTREAM
[2019-11-09 01:25] LABS: BACTERIA,URINE 3+ /HPF (Neg); MUCUS STRANDS NONE SEEN /LPF (Neg); RBC,URINE 0-2 /HPF (0-2); SQUAMOUS EPITHELIAL CELL,UR FEW /LPF (FEW)
--- NOTE | 2019-11-09 02:06 | NUR ---
Pt appears to be sleeping while laying in a supine position. Respirations are even and unlabored. Does not appear to be in any distress.
--- NOTE | 2019-11-09 04:14 | NUR ---
Pt is laying in his bed in a supine position. Does not appear to be sleeping as he occasionally opens his eyes. Respirations are even and unlabored. Does not appear to be in distress.
--- NOTE | 2019-11-09 14:23 | NUR ---
SPOKE WITH SERGEKATELIN GARCIA IN [facility] WHO STATES THE PATIENT'S FINGER PRINTS DID NOT MATCH THE SUSPECT THEY WERE LOOKING FOR AND DENIES ANY FOLLOW UP.
--- NOTE | 2019-11-09 19:29 | NUR ---
rcvd report, pt was resting in bed comfortably at change of shift awaiting dinner meal. Pt reports no complaints
--- NOTE | 2019-11-09 22:04 | NUR ---
Pt reports he is here for "cellulitus" and would like to go for a walk. Pt denies s/i, denies a/vh, denies depression. Pt appears to be resting comfortably. Pt was repositioned
--- NOTE | 2019-11-10 00:37 | NUR ---
Pt woke and requested assistance with walking, pt did about 10-12 laps from his bed to the back doors of the ER with assistance. Pt had BM and was changed. Pts bony prominences on his hips are reddened but skin is intact and no skin break down is visible. Applied foam bandage for addtl padding on his hips. Pt complains of sore legs, heels are floated. Pt had a snack and is sitting quietly in bed. Pt spoke of being adopted when he was a baby and states he has no family. Pt states he is from [place] and has a history of cellulitus. He was asked if he would like a bus pass to a hospital that he thought could help him and states he was given a bus pass to [facility] at his request because he recalls his father telling him he had excellent care at a hospital in [facility].
--- NOTE | 2019-11-10 02:37 | NUR ---
pt laying on his right side sleeping resting comfortably
--- NOTE | 2019-11-10 04:57 | NUR ---
pt laying supine resting with eyes open, rr even and unlabored
--- NOTE | 2019-11-10 06:30 | NUR ---
Pt is lying in bed, appears to be sleeping.
--- NOTE | 2019-11-10 08:30 | NUR ---
Pt is awake and eating breakfast.
--- NOTE | 2019-11-10 09:54 | NUR ---
Flores camarena in [facility] - 11/10/19 at 0955 by KADEEM Pt stated that one of his adoptive fathers hated the name Megha as this was the
--- NOTE | 2019-11-10 09:55 | NUR ---
When asked pt what this RN should call him he replied, "Call me anything you want." Pt stated that one of his adoptive fathers hated the name Megha as it was the name of the man he hated most in the world so changed his name to Gabe though not legally. Pt also does not care for the name Megha. Pt stated that names are not important, eyes are important as they are the windows to the soul. Pt circumstantial, rambles on, repeated the same long story twice within the same conversation. Told a story about cigarettes, how they are addictive and marijuana cigarettes are not. Pt c/o bilateral LE pain from the knees down 15/05 but he refuses to take anything for the pain stating that he doesn't believe in pills and he can handle it.
--- NOTE | 2019-11-10 10:30 | NUR ---
Pt repostioned onto his left side.
--- NOTE | 2019-11-10 11:19 | NUR ---
Flores camarena in [facility] - 11/10/19 at 1121 by KADEEM Pt has been cleared by [facility]'s office. He is not wanted for anything.
--- NOTE | 2019-11-10 12:26 | NUR ---
Pt instructed to change position in bed. Pt rolled from his left side onto his back.
--- NOTE | 2019-11-10 13:35 | NUR ---
Pt is sitting up in bed eating his lunch.
--- NOTE | 2019-11-10 14:15 | NUR ---
Pt is lying in bed on his right side, appears to be sleeping.
--- NOTE | 2019-11-10 15:38 | NUR ---
Pt asked to roll over in bed onto his left side and he did so.
--- NOTE | 2019-11-10 19:40 | NUR ---
Note migue in ED - 11/17/19 at 0132 by TRES Patient is resting quietly in bed. Up to bathroom using walker, tollerated ambulation well. Back to bed without problem. Patient is cooperative and compliant with staff.
[2019-11-11] MEDS ORDERED: diphenhydrAMINE 25mg capsule PO ONE (02:20)
--- NOTE | 2019-11-11 07:00 | NUR ---
PT RESTING IN BED
--- NOTE | 2019-11-11 08:00 | NUR ---
PT IS EATING BREAKFAST.
--- NOTE | 2019-11-11 09:00 | NUR ---
PT IS LAYING ON HIS LEFT SIDE
--- NOTE | 2019-11-11 11:00 | NUR ---
PT LAYING ON HIS BACK
--- NOTE | 2019-11-11 12:00 | NUR ---
PT EATING BREAKFAST
--- NOTE | 2019-11-11 13:00 | NUR ---
PT IS SITTING UP
--- NOTE | 2019-11-11 14:49 | NUR ---
PT IS UP WALKING AROUND . PT AMB TO BATHROOM. USING HIS WALKER. WALKING AROUND INDEPENDENTLY
--- NOTE | 2019-11-11 15:00 | NUR ---
pt is laying in bed
--- NOTE | 2019-11-11 16:00 | NUR ---
pt is in his room. no conerns at this time
--- NOTE | 2019-11-11 18:40 | NUR ---
pt is eating dinner, no concerns at this time
--- NOTE | 2019-11-11 20:51 | NUR ---
pt denies si/hi, hallucinations. pt reports that his adopted father called him Gabe throughout his childhood and pt related to that name better. pt is sleeping now, no s/s of distress noted.
--- NOTE | 2019-11-11 21:51 | NUR ---
pt continues to sleep, no s/s of distress noted, rr unlabored.
--- NOTE | 2019-11-11 23:54 | NUR ---
pt continues to sleep, rr unlabored, no s/s of distress noted.
--- NOTE | 2019-11-12 03:47 | NUR ---
pt is sleeping, rr unlabored, no s/s of distress noted.
--- NOTE | 2019-11-12 08:43 | NUR ---
PT IS EATING BREAKFAST, NO CONCERNS AT THIS TIME
--- NOTE | 2019-11-12 09:38 | NUR ---
CALLED CHER IN [facility], INFORMED HER THAT DR KING EVALUATED PT AND REPORTED PT HAS CONGNITIVE DECLINE BUT AFTER SPEAKING WITH ELIZABETH DOUBLE HEAD MACHINE OPERATOR IT HAS BEEN DETERMINED THAT WE NEED A CONGNITIVE DIAGNOSIS FOR PUBLIC GARDIAN PROCESS TO CONSERVE PT. CHER STATES SHE WILL SPEAK WITH DR KING AND CALL BACK WITH UPDATE.
--- NOTE | 2019-11-12 12:00 | NUR ---
PATIENT ATE 100% OF LUNCH SITTING AT EDGE OF BED. PATIENT APPROPRIATE WITH A SLIGHTLY FLAT AFFECT.
--- NOTE | 2019-11-12 12:30 | NUR ---
PATIENT SITTING UP EATING HIS LUNCH: HE ATE 100%
--- NOTE | 2019-11-12 13:06 | NUR ---
LUNCH TRAY PLACED AT BEDSIDE BY MEENAKSHI HADDAD.
--- NOTE | 2019-11-12 13:26 | NUR ---
REPORT FROM YUNIOR RN AT 1215 REPORT TO JOSE C PEÑA AT 132
--- NOTE | 2019-11-12 13:30 | NUR ---
RECEIVED REPORT FROM CASEY WYNNE. PT. LAYING IN BED WITH EYES CLOSED, BREATHING NONLABORED AND EVEN.
--- NOTE | 2019-11-12 14:10 | NUR ---
PT. ESCORTED TO SHOWER BY WHEELCHAIR WITH CASEY VALLECILLO AND SECURITY OFFICERS. PT. SHOWERED AND RETURNED TO BED 22.
--- NOTE | 2019-11-12 15:37 | NUR ---
DR KING CALLED STATES F03.90 DEMENTIA UNSPECIFIED MILD TO MODERATE SEVERITY, HE IS PUTING IN ADDENDUM TO BE REFLECTED IN CHART, CALLED ELIZABETH 8218 LEFT MESSAGE UPDATING HER THAT COGNITIVE DIAGNOSIS IN CHART AND CAN PROVIDE INFO TO PUBLIC GIOVANA
--- NOTE | 2019-11-12 16:56 | NUR ---
PATIENT ORIENTED TO SELF, LOCATION. WHEN ASKED IF HE NEEDS ANYTHING, HE STATES NO; AFFECT FLAT.
--- NOTE | 2019-11-12 19:10 | NUR ---
PATIENT ATE 100% OF DINNER. I ASKED PATIENT ABOUT WHERE HE GREW UP. PATIENT GOT ANGRY AND SHUT DOWN.
--- NOTE | 2019-11-12 21:01 | NUR ---
PATIENT ASKED TO WALK LAPS AFTER HE GOT UP TO GO TO THE BATHROOM. PATIENT VERBALIZED THAT HE NEEDS TO WALK WITH HIS FFW TO GET STRONGER
--- NOTE | 2019-11-12 23:13 | NUR ---
PATIENT APPEARS TO BE SLEEPING ON HIS LEFT SIDE, RR EVEN UN UNLABORED
--- NOTE | 2019-11-13 01:10 | NUR ---
PATIENT'S HANDS ARE MOVING AROUND IN HIS GROIN AREA UNDER THE COVERS AND PATIENT LOOKING WITH ONE EYE AT MY FEMALE COLLEGUE. PATIENT ASKED TO STOP MASTURBATING AND HE QUICKLY REMOVED HIS HANDS FROM HIS GROIN.
--- NOTE | 2019-11-13 03:32 | NUR ---
PATIENT APPEARS TO BE MASTURBATING AGAIN AND STARING AT MY COLLEAGUE. HE QUICKLY PUT HIS HANDS AT HIS SIDE. PATIENT WAS ASKED TO WALK TO THE BATHROOM. HE PUT HIS OWN SHOES ON WITHOUT DIFFICULTY. HE GOT UP BY HIMSELF AND USED THE FFW TO WALK TO THE BATHROOM WITHOUT DIFFICULTY.
--- NOTE | 2019-11-13 04:13 | NUR ---
PATIENT CONTINUES TO WALK LAPS WITH HIS WALKER. AT TIMES HE STOPS, SQUINTS HIS EYES AND CURLS HIS LIPS UP AND STOMPS HIS WALKER. HE WALKED ABOUT 20 LAPS IN A STRAIGHT LINE BACK AND FORTH.
--- NOTE | 2019-11-13 04:31 | NUR ---
PATIENT SAT AT SIDE OF BED REMOVED SHOES, STRAIGHTENED SOCKS, PULLED BLANKETS UP
--- NOTE | 2019-11-13 05:52 | NUR ---
PATIENT AXOX4 LAYING ON RIGHT SIDE WITH BP CUFF ON LEFT SIDE
--- NOTE | 2019-11-13 08:10 | NUR ---
DR ASHTON AT BEDSIDE FOR AM EVALUATION
--- NOTE | 2019-11-13 08:23 | NUR ---
PT AWAKE AND SITTING UP. SAFETY BREAKFAST TRAY DELIVERED TO BEDSIDE
--- NOTE | 2019-11-13 10:45 | NUR ---
Breaking Primary RN, pt laying in bed with covers over her head, regular breathing present
--- NOTE | 2019-11-13 12:29 | NUR ---
Breaking primary RN, pt is laying on his right side, eyes closed, regular breathing observed, will continue to monitor
[2019-11-13] MEDS: nitrofuran/nitrofuran macrocrysal 100 MG capsule PO SCH ×2 (13:04→20:35)
--- NOTE | 2019-11-13 13:38 | NUR ---
PT C/O BACK DISCOMFORT, ORDER RECEIVED FOR IBUPROFEN. PT GIVEN IBUPROFEN 400MG. PT CONTINUES TO WANDER IN AND OUT OF HER ROOM AREA, CURRENTLY AT NURSES DESK WITH TECHS
--- NOTE | 2019-11-13 16:45 | NUR ---
ELIZABETH OF [employer]IAL [employer] HERE, STATES THAT DR KING SIGNED THE PT'S DECLALARATION OF CAPACITY/CONSERVERTORSHIP AND WAS FAXED TO
--- NOTE | 2019-11-13 20:17 | NUR ---
One to one with the patient. He is poorly oriented and stated the year was 1999 and had difficulty stating his age but then stated he was 62 years old. He has no plan for food, assisted or clothing if he left the hospital. He is cooperative with the unit routine. He ambulates to and from the bathroom using his walker. He reports his appetite has been good but only ate approximately 50% of his dinner.
--- NOTE | 2019-11-13 21:21 | NUR ---
The patient appears to be sleeping on his bed
--- NOTE | 2019-11-13 23:50 | NUR ---
The patient appears to be sleeping
--- NOTE | 2019-11-14 02:14 | NUR ---
The patient is currently sleeping and periodically gets up to use the bathroom
--- NOTE | 2019-11-14 04:58 | NUR ---
The patient appears to sleep well except for numerous trips to the bathroom
[2019-11-14] MEDS: nitrofuran/nitrofuran macrocrysal 100 MG capsule PO SCH ×2 (08:43→20:20)
--- NOTE | 2019-11-14 18:31 | NUR ---
Assumed care of patient, pt lying in bed with eyes open. Pt appears calm and cooperative, rr even and unlabored.
--- NOTE | 2019-11-14 19:45 | NUR ---
Pt is observed sitting up in bed finishing his dinner tray. Pt presents as agitated and doesn't want to answer questions. Pt refused assessment of legs, was able to assess around ankles. Pt's legs are red and dry. Patient has a history of cellulities, pt states "I live with it all the time, I am 6 ft above the ground, most men are 6 ft below." Pt was medication compliant, pt on AXB for a UTI. When asked if pt knew where he was "Just cover me up I am cold."
--- NOTE | 2019-11-14 22:15 | NUR ---
Pt in bed, sleeping on right side, rr even and unlabored.
--- NOTE | 2019-11-14 23:32 | NUR ---
Pt is sleeping comfortably no signs of distress noted. Pt is lying on his back, respirations even and unlabored.
--- NOTE | 2019-11-15 00:50 | NUR ---
Patient ambulated to bathroom with FWW - slow, steady gait noted. No distress noted.
--- NOTE | 2019-11-15 03:24 | NUR ---
Patient sleeping in semi-hitchcock position on his back. No distress noted, respirations even and unlabored.
--- NOTE | 2019-11-15 05:26 | NUR ---
Patient ambulated to bathroom with FWW, gait steady. No distress noted, respirations even and unlabored.
--- NOTE | 2019-11-15 07:13 | NUR ---
patient is sleeping laying on his right side, his respirations appear normal and he is not in any distress at this time.
--- NOTE | 2019-11-15 08:04 | NUR ---
patient is sleeping laying on his back at this time, respirations appear normal and he is not in any distress at this time.
[2019-11-15] MEDS: nitrofuran/nitrofuran macrocrysal 100 MG capsule PO SCH ×2 (08:22→20:12)
--- NOTE | 2019-11-15 09:33 | NUR ---
patient woke up and ate 100% of his breakfast then laid back down and went to sleep, his respirations appear normal and he is not in any distress at this time.
--- NOTE | 2019-11-15 10:36 | NUR ---
patient is sleeping supine in his bed, his respirations appear normal and he is not in any distress at this time.
--- NOTE | 2019-11-15 11:31 | NUR ---
the patient is sleeping in bed at this time his respirations appear normal and he is not in any distress at this time.
--- NOTE | 2019-11-15 12:52 | NUR ---
the patient is currently sleeping in a supine position in bed, his respirations appear normal and he is not in any distress at this time
--- NOTE | 2019-11-15 13:47 | NUR ---
PT FINISHING LUNCH WITHOUT COMPLAINT OR NEED.
--- NOTE | 2019-11-15 14:47 | NUR ---
the patient is laying on his left side sleeping, the patient's respirations appear normal and he is not in any distress at this time.
--- NOTE | 2019-11-15 15:47 | NUR ---
patient is awake but laying in bed, patient's respirations appear normal and no distress at this time
--- NOTE | 2019-11-15 16:49 | NUR ---
patient is sleeping at the moment resting comfortably in the supine position, the patient's respirations appear normal and is not in any distress at the moment
--- NOTE | 2019-11-15 17:56 | NUR ---
patient is sleeping at this time, respirations appear normal and he is not in any distress at this time.
--- NOTE | 2019-11-15 19:29 | NUR ---
This patient is oriented to place and situation. He has eaten his dinner. This creative services writer asked patient if he had any needs? The patient denied any. He has a walker at bedside. The patient was labile at initial interview but calmed. Patient states he just wants to sleep and not be bothered. Patient is in view from the nursing station. Frequent rounding is being done for patient and staff safety.
--- NOTE | 2019-11-15 21:18 | NUR ---
Patient is up to the bathroom using is walker. Patient ambulates slowly but well.
--- NOTE | 2019-11-15 23:52 | NUR ---
Patient is sleeping quietly in a mid fowlers position.
--- NOTE | 2019-11-16 00:58 | NUR ---
Patient sleeping mid fowlers position with his knees flexed.
--- NOTE | 2019-11-16 01:27 | NUR ---
Patient up to bathroom with use of walker. Patient returned to bed without problem.
--- NOTE | 2019-11-16 03:49 | NUR ---
Patient is sleeping low fowlers position with his knees flexed.
--- NOTE | 2019-11-16 05:14 | NUR ---
Patient sleeping quietly nearly on his right side. In view from nursing station.
--- NOTE | 2019-11-16 07:00 | NUR ---
resting quietly in bed.
--- NOTE | 2019-11-16 09:07 | NUR ---
resting quietly in bed.
[2019-11-16] MEDS: nitrofuran/nitrofuran macrocrysal 100 MG capsule PO SCH ×2 (09:39→20:53)
--- NOTE | 2019-11-16 10:34 | NUR ---
resting quietly in bed.
--- NOTE | 2019-11-16 11:29 | NUR ---
pt sleeping in bed.
--- NOTE | 2019-11-16 12:23 | NUR ---
pt calm and cooperative. up to restroom with walker.
--- NOTE | 2019-11-16 14:07 | NUR ---
sleeping quietly in bed.
--- NOTE | 2019-11-16 16:08 | NUR ---
resting quietly in bed.
--- NOTE | 2019-11-16 17:11 | NUR ---
pt calm and cooperative, resting in bed.
--- NOTE | 2019-11-16 18:39 | NUR ---
Patient is awake and well oriented. Patient is sitting up in bed. He has finished his dinner. The patient has a complaint of chronic leg pain, "it's nothing new, I tollerate it." Patient exhibits emotional blunting. His affect is flat. Patilent chooses not to talk much. He is polite cooperative with staff at this time. There is no medical hold on this patient. He is homeless and awaiting placement.
--- NOTE | 2019-11-16 19:40 | NUR ---
Patient is resting quietly in bed. Up to bathroom using walker, tollerated ambulation well. Back to bed without problem. Patient is cooperative and compliant with staff.
--- NOTE | 2019-11-16 20:54 | NUR ---
Patient was up with walker and ambulated as part of his physical therapy. Patient tollerated well. Patient took nightime antibiotic. He is medication compliant. Patient back in bed preparing for sleep.
--- NOTE | 2019-11-16 21:30 | NUR ---
Patient sleeping, low fowlers position. In view from nurses station.
--- NOTE | 2019-11-16 22:30 | NUR ---
Patient is sleeping, low fowlers position in bed, partialy on his right side.
--- NOTE | 2019-11-16 23:45 | NUR ---
Patient laying in his left side, he is sleeping quietly.
--- NOTE | 2019-11-17 01:34 | NUR ---
Patient sleeping low fowlers, partially on his right side.
--- NOTE | 2019-11-17 04:26 | NUR ---
Per sprinkler repair technician this patient has only had 100 cc intake on the PM shift. This patient has only went to the bathroom to void. Patient did not use the bedside urinal last NOC. This information will be relayed to the day shift and rounding ER MD this am along with a current set of vital signs. The patient is sleeping at this time.
--- NOTE | 2019-11-17 04:52 | NUR ---
This proposal manager writer spoke with Dr. Waters concerning patients poor intake, primarily fluids, and his unknown output. The patient has been voiding in the bathroom and not communicating with staff about his output. Per the unit tech this patient has been resistant to taking oral fluids and became angry this shift when she tried to promote increased intake. The patients last meal was early last evening. A BMP will be ordered. This proposal manager writer will pass along to the oncoming day RN to try and facilitate a lab draw prior to breakfast to effect a fasting lab draw for a more acurate BMP.
--- NOTE | 2019-11-17 06:02 | NUR ---
Patient is sleeping on his right side.
--- NOTE | 2019-11-17 06:22 | NUR ---
Assumed care of pt. Pt lying on right side in no apparent distress. Respirations are even and unlabored
[2019-11-17] MEDS: nitrofuran/nitrofuran macrocrysal 100 MG capsule PO SCH ×2 (07:37→20:52)
--- NOTE | 2019-11-17 07:53 | NUR ---
Pt ambulating to bathroom with steady gait using walker appropriately
--- NOTE | 2019-11-17 09:53 | NUR ---
Pt asleep on back in no apparent distress. Respirations are even and unlabored
--- NOTE | 2019-11-17 11:23 | NUR ---
PT GIVEN BED BATH AND PROVIDED WITH CLEAN SHEETS AND SCRUBS TO WEAR.
--- NOTE | 2019-11-17 11:34 | NUR ---
Pt given clean clothing and clean bedsheets
--- NOTE | 2019-11-17 12:55 | NUR ---
Pt lying on his back in no apparent distress. Respirations are even and unlabored.
--- NOTE | 2019-11-17 13:45 | NUR ---
Pt sitting up and eating his lunch
[2019-11-17 14:25] LABS: ANION GAP 10 (8-16); BLOOD UREA NITROGEN 27 MG/DL (7-18); BUN/CREATININE RATIO 23.3 (5.4-32.0); CALCIUM 8.2 MG/DL (8.5-10.1); CHLORIDE 104 MMOL/L (99-107); CREATININE 1.16 MG/DL (0.60-1.10); GLUCOSE 98 MG/DL (70-104); POTASSIUM 3.9 MMOL/L (3.5-5.1); SODIUM 140 MMOL/L (135-145); TOTAL CARBON DIOXIDE 26.4 MMOL/L (24-32); eGFR 60 ML/MIN
--- NOTE | 2019-11-17 14:53 | NUR ---
Pt asleep on right side in no apparent distress. Respirations are even and unlabored.
--- NOTE | 2019-11-17 16:12 | NUR ---
Pt asleep on left side in no apparent distress. Respirations are even and unlabored.
--- NOTE | 2019-11-17 16:48 | NUR ---
Pt asleep on his back in no apparent distress. Respirations are even and unlabored.
--- NOTE | 2019-11-17 18:30 | NUR ---
Received report and assumed care of patient that is lying in bed.
--- NOTE | 2019-11-17 20:30 | NUR ---
The patient is asleep in supine position. RR unlabored. No s/s of distress.
--- NOTE | 2019-11-17 22:30 | NUR ---
The patient continues to sleep on his back with head raised. RR even and unlabored. No s/s of distress.
--- NOTE | 2019-11-17 22:45 | NUR ---
Pt is lying on his back in bed resting. He is awake and alert but tired and desires to sleep. He denies pain or discomfort at this time. He is within direct eyesight of the nursing station.
--- NOTE | 2019-11-18 00:30 | NUR ---
Patient continues to sleep on his back. RR unlabored. No s/s of distress.
--- NOTE | 2019-11-18 03:16 | NUR ---
The patient is now sleeping on her left side. No s/s of distress. Addendum: 11/18/19 at 0318 by DINAH Wrong person.
--- NOTE | 2019-11-18 03:16 | NUR ---
The patient is awake. He's ambulated to the restroom. Denies needs.
--- NOTE | 2019-11-18 04:53 | NUR ---
The patient is sleeping on his back side. RR unlabored. No s/s of distress.
--- NOTE | 2019-11-18 06:18 | NUR ---
PT SLEEPING, RESPIRATIONS SPONTANEOUS, EVEN AND UNLABORED, NO S/S OF DISTRESS, DISCOMFORT OR AGITATION AT THIS TIME, PT IN LINE OF NURSES STATION.
--- NOTE | 2019-11-18 08:15 | NUR ---
PT SITTING UP EATING BREAKFAST TRAY, NO S/S OF DISTRESS, DISCOMFORT OR AGITATION AT THIS TIME, PT IN LINE OF SITE OF NURSES STATION
--- NOTE | 2019-11-18 10:15 | NUR ---
PT SLEEPING ON RIGHT SIDE, RESPIRATIONS SPONTANEOUS, EVEN AND UNLABORED, NO S/S OF DISTRESS, DISCOMFORT OR AGITATION, PT IN LINE OF SITE NURSES STATION. PT HAD FINISHED EATING BREAKFAST TRAY.
--- NOTE | 2019-11-18 11:11 | NUR ---
ELIZABETH TO [employer] AND REPORTS SHE HAS LEFT MESSAGE TODAY WITH [employer] SHE SENT REQUIRED INFO TO THEM LAST WEEK BUT HAS NOT HEARD BACK REGARDING CONSERVATORSHIP.
--- NOTE | 2019-11-18 11:20 | NUR ---
PT SLEEPING, RESPIRATIONS SPONTANEOUS, EVEN AND UNLABORED, NO S/S OF DISTRESS, DISCOMFORT OR AGITATION, PT IN LINE OF SITE NURSES STATION.
[2019-11-18] MEDS ORDERED: NUT.TX.IMPAIRED DIGEST FXN (Ensure Clear) 237 ML PO SCH (14:30)
[2019-11-18] MEDS ORDERED: protein shake 8oz. (237ml) PO SCH (14:30)
[2019-11-18] MEDS: lactose-reduced food (Ensure High Protein) 237ml bottle PO SCH ×2 (15:17→18:25)
[2019-11-18] MEDS ORDERED: ibuprofen tablet 400 MG TABLET PO PRN (17:35)
--- NOTE | 2019-11-18 21:40 | NUR ---
pt is sleeping, rr unlabored, no s/s of distress noted.
--- NOTE | 2019-11-18 23:03 | NUR ---
pt is sleeping, rr unlabored, no s/s of distress noted.
--- NOTE | 2019-11-19 03:17 | NUR ---
pt continues to sleep, no s/s of distress noted.
--- NOTE | 2019-11-19 06:14 | NUR ---
Patient sleeping on right side. No distress observed. Continue to monitor.
[2019-11-19] MEDS: lactose-reduced food (Ensure High Protein) 237ml bottle PO SCH ×3 (08:00→20:47)
--- NOTE | 2019-11-19 08:20 | NUR ---
Patient got up with his walker and walked to the bathroom steady gait. Patient then went back to bed and eating breakfast. Continue to monitor.
--- NOTE | 2019-11-19 10:17 | NUR ---
Patient sleeping supine in bed. No distress observed. Continue to monitor.
--- NOTE | 2019-11-19 12:10 | NUR ---
Patient ambulatory to BR with walker, steady gait. Patient smiling as he walks by nurses station. No distress observed. Continue to monitor.
--- NOTE | 2019-11-19 14:55 | NUR ---
Patient ambulatory to BR with walker, steady gait. No distress observed. Continue to monitor.
--- NOTE | 2019-11-19 16:09 | NUR ---
Patient sleeping supine. No distress observed. Continue to monitor.
--- NOTE | 2019-11-19 17:45 | NUR ---
Patient sleeping supine. No distress observed. Continue to monitor.
--- NOTE | 2019-11-19 21:57 | NUR ---
Pt awake and eating some snacks while lying in bed. Pt then sat up and put on his shoes and got up independantly and slowly and using walker ambulating with steady slow gait to BR.
--- NOTE | 2019-11-20 00:16 | NUR ---
pt sleeping on her right side. belongings near bed. no s/s of any distress.
--- NOTE | 2019-11-20 01:14 | NUR ---
Pt sat up in the bed and quitely put on shoes and ambulated to BR with Walker. Pt thanked me when I held BR door open. Pt in BR for 10 min. Returned to bed, lay down , and appears to be back asleep.
--- NOTE | 2019-11-20 02:40 | NUR ---
Pt up to BR again. Independant and using walker with steady slow gait. I asked if it is distrupting his sleep, having to get up and go to bathroom almost hourly through the night. Pt aggitated with my comment and stated, "I don't get up every hour at night...maybe that's the problem". This is the 4th time he has gotten up to BR since falling asleep around 10 pm (over the past 5 hrs).
--- NOTE | 2019-11-20 02:57 | NUR ---
Pt returned to his bed after using BR. He moved slower by the nurses station and stopped in front of us to take a few deep breaths. Asked if he was feeling SOB and he reported no. Pt appeared calm and in no distress, RR 18 and unlabored. Asked if he needed anything once back at his bed and he reported "I'm fine" and waved me away.
--- NOTE | 2019-11-20 05:44 | NUR ---
PT UP OUT OF BED WITH WALKER TO BATHROOM
[2019-11-20] MEDS: lactose-reduced food (Ensure High Protein) 237ml bottle PO SCH ×3 (08:17→18:21)
--- NOTE | 2019-11-20 20:00 | NUR ---
PATIENT UP WITH WALKER AND SHOES AMBULATING WITH A STEADY GAIT TO AND FROM BATHROOM
--- NOTE | 2019-11-20 21:58 | NUR ---
PATIENT IN BED EYES CLOSED COVERS ON RR EVEN UN LABORED NO OBSERVABLE S/S OF ACUTE STRESS AT THIS TIME WILL CONTINUE TO MONITOR
--- NOTE | 2019-11-20 23:45 | NUR ---
PATIENT IN BED LYING ON BACK COVERS ON RR EVEN UN LABORED EYES CLOSED NO OBSERVABLE S/S OF ACUTE STRESS AT THIS TIME WILL CONTINUE TO MONITOR
--- NOTE | 2019-11-21 02:00 | NUR ---
PATIENT LYING ON RIGHT SIDE IN BED COVERS ON EYES CLOSED RR EVEN UN LABORED NO OBSERVABLE S/S OF ACUTE STRESS AT THIS TIME WILL CONTINUE TO MONITOR
--- NOTE | 2019-11-21 02:37 | NUR ---
patient up to restroom and back in bed observed patient ambulating with a steady gait during the bathroom trip while using walker
--- NOTE | 2019-11-21 03:33 | NUR ---
patient lying supine in bed covers on eyes closed rr even un labored no observable s/s of acute stress at this time will continue to monitor
--- NOTE | 2019-11-21 06:00 | NUR ---
asleep no conerns
--- NOTE | 2019-11-21 06:20 | NUR ---
SBAR TO ALAINA RN NO QUESTIONS/CONCERNS AFTER ASSUMING CARE
--- NOTE | 2019-11-21 07:00 | NUR ---
asleep no conerns
--- NOTE | 2019-11-21 08:00 | NUR ---
asleep no conerns
[2019-11-21] MEDS: lactose-reduced food (Ensure High Protein) 237ml bottle PO SCH ×3 (08:11→18:02)
--- NOTE | 2019-11-21 09:00 | NUR ---
asleep no conerns
--- NOTE | 2019-11-21 10:00 | NUR ---
asleep no conerns
--- NOTE | 2019-11-21 11:00 | NUR ---
asleep no conerns
--- NOTE | 2019-11-21 11:30 | NUR ---
Up to bathroom with walker
--- NOTE | 2019-11-21 12:00 | NUR ---
asleep no conerns
--- NOTE | 2019-11-21 12:30 | NUR ---
Up to restroom with walker
--- NOTE | 2019-11-21 14:00 | NUR ---
Asleep no concerns
--- NOTE | 2019-11-21 17:03 | NUR ---
Asleep no concerns
--- NOTE | 2019-11-21 18:30 | NUR ---
Assumed patient care. He is resting quietly in bed, awake, well oriented, low fowlers position. Addendum: 11/22/19 at 0327 by TRES Amendment undone in ED - 11/22/19 at 0330 by TRES Patient has eaten all of his dinner, consumed all of his ensure, and drank approximately 100cc of water.
--- NOTE | 2019-11-21 19:01 | NUR ---
Patient is awake and well oriented. Patient states he doesn't like to be bothered with with questions. When this teletypewriter operator explained that some questions are necessary and this teletypewriter operator is his nurse, he then relents and apologies for his statement. This patient states he had a BM today. He denies S/I or H/I. Patient admits of chronic bilateral leg pain. Patients legs are both reddish below the knees, this has been present since admission. Patients lower legs are scaley also. The patient is ambulatory with a walker. The patient is advised that he is in a safe place. He exhibits understanding.
--- NOTE | 2019-11-21 19:40 | NUR ---
Patient has consumed all of his dinner, including 100 percent of his ensure and around 100 cc of H20.
--- NOTE | 2019-11-21 20:15 | NUR ---
Patient puts on his shoes, uses his walker to ambulate to the restroom. No difficulty with ambulation using walker. Patient offered motrin for chronic leg pain, he declines.
--- NOTE | 2019-11-21 21:32 | NUR ---
Patient sleeping quietly, low fowlers in bed. In view from nursing station.
--- NOTE | 2019-11-21 22:08 | NUR ---
Patient sleeping low fowlers position, slumped to the right side.
--- NOTE | 2019-11-21 22:40 | NUR ---
Patient sleeping on right side. No distress.
--- NOTE | 2019-11-22 00:12 | NUR ---
Patient sleeping low fowlers position.
--- NOTE | 2019-11-22 01:35 | NUR ---
Patient sleeping on his right side.
--- NOTE | 2019-11-22 01:38 | NUR ---
Patilent is sleeping quietly, mid fowlers position.
--- NOTE | 2019-11-22 01:40 | NUR ---
Patient up to bathroom to void. Patient puts on own shoes, uses walker without problem. Back to sleep shortly after returning to bed.
--- NOTE | 2019-11-22 02:45 | NUR ---
Patient sleeping quietly, low fowlers in bed.
--- NOTE | 2019-11-22 03:30 | NUR ---
Patient sleeping on right side.
--- NOTE | 2019-11-22 04:51 | NUR ---
Patient sleeping low fowlers position. In view from nursing station.
[2019-11-22] MEDS: lactose-reduced food (Ensure High Protein) 237ml bottle PO SCH ×3 (08:02→18:01)
--- NOTE | 2019-11-22 12:44 | NUR ---
relieving RN for break, pt is resting quietly on bed, resp even and unlabored,
--- NOTE | 2019-11-22 18:30 | NUR ---
Assumed care of patient, pt. laying in bed eating dinner at this time, rr even and unlabored.
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
--- NOTE | 2019-11-22 22:30 | NUR ---
Pt. laying in bed at this time with eyes closed, appears to be resting comfortably.
--- NOTE | 2019-11-23 00:28 | NUR ---
Pt. sleeping at this time, laying on his right side, rr even and unlabored.
--- NOTE | 2019-11-23 02:38 | NUR ---
Pt. continues to sleep, rr remain even and unlabored, will continue to monitor.
--- NOTE | 2019-11-23 04:37 | NUR ---
Pt. contiues to sleep at this time, laying on his left side, makes occasional body adjustments.
--- NOTE | 2019-11-23 06:01 | NUR ---
Pt. continues to sleep, rr even and unlabored, HOB elevated
[2019-11-23] MEDS: lactose-reduced food (Ensure High Protein) 237ml bottle PO SCH ×3 (08:26→18:31)
--- NOTE | 2019-11-23 19:01 | NUR ---
The patient is currently sleeping in bed on his left side. He just finished eating dinner. He denies pain or discomfort at this time. He is in direct line of sight of the nursing station and has visible respirations.
--- NOTE | 2019-11-23 20:35 | NUR ---
The patient is currently in bed sleeping on his back with visible respirations. He does not show sign of pain or discomfort. He is in direct line of sight of the nursing station.
--- NOTE | 2019-11-23 22:31 | NUR ---
The patient is currently sleeping on his right side with visible respirations. He does not show sign of pain or discomfort. He is in direct line of sight of the nursing station.
--- NOTE | 2019-11-23 23:45 | NUR ---
The patient is currently lying on his back, attempting to sleep in bed but he is awake at this time. He denies pain or discomfort. He is in direct line of sight of the nursing station.
--- NOTE | 2019-11-24 01:39 | NUR ---
Pt just returned from using the bathroom where he voided. He is currently lying on his back resting. He denies pain or discomfort at this time. He is in direct line of sight of the nursing station.
--- NOTE | 2019-11-24 03:35 | NUR ---
The patient is currently lying in bed, sleeping on his right side with visible respirations. He does not show sign of pain or discomfort. He is in direct line of sight of the nursing station.
--- NOTE | 2019-11-24 05:44 | NUR ---
Pt is currently awake, ambulating to the restroom via walker. He denies pain or discomfort, is in direct eye sight. Pt verbally expressed annoyance that his vital signs were taken.
--- NOTE | 2019-11-24 07:00 | NUR ---
pt is resting in his room. no medical concerns at this time.
[2019-11-24] MEDS: lactose-reduced food (Ensure High Protein) 237ml bottle PO SCH ×3 (08:20→18:24)
--- NOTE | 2019-11-24 09:00 | NUR ---
pt laying on his left side
--- NOTE | 2019-11-24 11:00 | NUR ---
pt ambulated to the bathroom
--- NOTE | 2019-11-24 12:00 | NUR ---
pt resting in his room
--- NOTE | 2019-11-24 13:00 | NUR ---
pt resting in his room
--- NOTE | 2019-11-24 14:00 | NUR ---
pt resting in his room
--- NOTE | 2019-11-24 15:00 | NUR ---
pt ambulated to bathroom
--- NOTE | 2019-11-24 16:00 | NUR ---
pt resting in his room
--- NOTE | 2019-11-24 17:00 | NUR ---
pt resting in his room
--- NOTE | 2019-11-25 00:16 | NUR ---
pt sleeping, hob elevated 45 degressa, resp unlabored , pt in the line of sight of staff will continue to monitor and reassess
--- NOTE | 2019-11-25 06:00 | NUR ---
pt resting no change
--- NOTE | 2019-11-25 08:00 | NUR ---
pt laying on his back
[2019-11-25] MEDS: lactose-reduced food (Ensure High Protein) 237ml bottle PO SCH ×3 (08:07→18:00)
--- NOTE | 2019-11-25 10:00 | NUR ---
pt resting no change
--- NOTE | 2019-11-25 12:00 | NUR ---
pt ambulated to bathroom
--- NOTE | 2019-11-25 14:00 | NUR ---
pt amb indep with walker to the bathroom
--- NOTE | 2019-11-25 16:00 | NUR ---
PT AWAKE LAYING IN HIS BED. TILTED TO THE RIGHT
--- NOTE | 2019-11-25 19:30 | NUR ---
pt up out of bed with walker to bathroom
--- NOTE | 2019-11-25 20:30 | NUR ---
PT IN BED RESTING PEACFULLY ON HIS BACK WITH HOB ELEVATED 45 DEGREES PT DENIES WANTING THE HOB BACK STATES " I AM COMFORTABLE THIS WAY "
--- NOTE | 2019-11-25 21:30 | NUR ---
PT SITTING UPRIGHT IN BED WATCHING STAFF, ASKED PT IF THERE WAS ANYTHING HE NEEDED PT REPLIED " NO THANK I AM FINE NOW LEAVE ME BE "
--- NOTE | 2019-11-25 22:30 | NUR ---
PT SLEEPING PEACEFULLY IN BED ON HIS RIGHT SIDE RESP UNLABORED WILL CONTINUE TO MONITOR AND REASSESS
--- NOTE | 2019-11-25 23:33 | NUR ---
PT UP OUT OF BED TO VOID USED WALKER TO ASSIT WITH AMBULATION , WAS INDEPENDENTLY ABLE TO PUT ON SHOES WITH OUT ASSISTANCE.
--- NOTE | 2019-11-25 23:45 | NUR ---
PT BACK TO BED
--- NOTE | 2019-11-26 00:20 | NUR ---
PT BACK TO BED ASLEEP RESP UNLABORED WILL CONTINUE TO MONIOTR AND REASSESS NEEDED
--- NOTE | 2019-11-26 01:30 | NUR ---
PT STARING AT NURSING STAFF, FIXATED , WHEN ASKED WHAT HE NEEDED OR WAS LOOKING AT PATIENT PRETNEDED HE WAS ASLEEP , AND REPOSTIONED HIMSELF IN BED . HOB DECLINED TO 30 DEGREES SO PATIENT WOULD BE ABLE TO LAY IN BED RATHER THAN SIT UPRIGHT AND SLEEP RATHER THAN STARE AT STAFF DURNING SHIFT TYPING NOTES . PT SAID " LEAVE ME ALONE , I AM FINE WHEN ASKED AGAINIF HE NEEDS ANYTHING"
--- NOTE | 2019-11-26 02:01 | NUR ---
PT UP OUT OF BED TO AMBULATE TO BATHRROM WITH WALKER
--- NOTE | 2019-11-26 02:09 | NUR ---
PT WAS LAYING IN BED SUPINE WITH KNEES UP , BLOCKING HIS VIEW TO STAFF , STAFF IN THE LINEOF VIEW WITH PATIENT, ENCOURAGED PT TI GO BACK TO SLEEP . PT THEN REPOSTIONED SELF TO HIS RIGHT SIDE
--- NOTE | 2019-11-26 02:22 | NUR ---
PT APPEARS TO BE BACK ASLEEP RESP UNLABORED WILL CONTINUE TO MONITOR AND RESSESS
--- NOTE | 2019-11-26 03:00 | NUR ---
PT SLEEPING PEACFULLY ON RIGHT SIDE RESP UNLABORED WILL CONTINUE TO MONITOR AND REASSESS
--- NOTE | 2019-11-26 04:20 | NUR ---
pt up out of bed to bathroom with walker
--- NOTE | 2019-11-26 05:49 | NUR ---
PT RESTING RIGHT SIDE, AROUSABLE WITH VSS RESP UNLABORED WILL CONTINUE MONITOR AND REASSESS
--- NOTE | 2019-11-26 07:01 | NUR ---
resting quietly in bed.
--- NOTE | 2019-11-26 08:54 | NUR ---
awake and quietly eating breakfast in bed.
[2019-11-26] MEDS: lactose-reduced food (Ensure High Protein) 237ml bottle PO SCH ×3 (08:55→18:00)
--- NOTE | 2019-11-26 09:46 | NUR ---
sitting up in bed, calm and cooperative.
--- NOTE | 2019-11-26 10:46 | NUR ---
resting quietly in bed.
--- NOTE | 2019-11-26 11:24 | NUR ---
resting quietly in bed.
--- NOTE | 2019-11-26 13:01 | NUR ---
sitting up in bed and eating lunch quietly.
--- NOTE | 2019-11-26 13:29 | NUR ---
walking with walker using the bathroom.
--- NOTE | 2019-11-26 14:48 | NUR ---
resting quietly in bed.
--- NOTE | 2019-11-26 16:54 | NUR ---
resting quietly in bed.
--- NOTE | 2019-11-26 20:00 | NUR ---
The patient has been resting on his bed. He makes no attempts to ungage socially with others. He facilates between being polite to irritated if he is disturbed. He ambulates to and from the bathroom independantly with a walker. He denies pain or physical complaints. He did eat well and did not require any assistance at the evening meal.
--- NOTE | 2019-11-26 21:19 | NUR ---
The patient appears to be asleep at this time.
--- NOTE | 2019-11-27 00:09 | NUR ---
The patient appears to be sleeping
--- NOTE | 2019-11-27 01:33 | NUR ---
The patient appears to be sleeping
--- NOTE | 2019-11-27 02:36 | NUR ---
The patient up to use the bathroom and reporting that he would like a long sleeved sweatshirt which was provided to him.
--- NOTE | 2019-11-27 04:46 | NUR ---
The patient stated he doesn't want to live in [place], [place]. He is irritable. He doesn't want help with housing but does not verbalize a plan for self care.
--- NOTE | 2019-11-27 06:32 | NUR ---
resting quietly in bed.
--- NOTE | 2019-11-27 07:45 | NUR ---
up to bathroom with walker then layed back down in his bed. calm and quiet.
[2019-11-27] MEDS: lactose-reduced food (Ensure High Protein) 237ml bottle PO SCH ×3 (08:24→18:00)
--- NOTE | 2019-11-27 08:25 | NUR ---
Dr. Waters at bedside. Pt has no needs at this time. Currenty resting quietly in bed.
--- NOTE | 2019-11-27 10:55 | NUR ---
pt up to bathroom with walker, safety maintained walking. pt calm and quiet.
--- NOTE | 2019-11-27 11:55 | NUR ---
calm and quiet in bed.
--- NOTE | 2019-11-27 13:12 | NUR ---
sitting up in bed eating lunch.
--- NOTE | 2019-11-27 14:14 | NUR ---
sitting up in bed, calm and quiet.
--- NOTE | 2019-11-27 15:33 | NUR ---
resting quietly in bed.
--- NOTE | 2019-11-27 17:46 | NUR ---
resting quietly in bed.
--- NOTE | 2019-11-27 19:10 | NUR ---
Spoke with the patient prior to dinner trays coming and he was very irritable. He is ambulating to the bathroom without difficulty. He is eating well.
--- NOTE | 2019-11-27 19:23 | NUR ---
Again tried to interact with the patient. He presents as very irritable, depressed and wants to leave the hospital. He is not able to formulate a plan if he were to leave the hospital. He stated he does not want to talk to a psychiatrist.
--- NOTE | 2019-11-27 21:27 | NUR ---
The patient appears to be asleep in his bed.
--- NOTE | 2019-11-27 22:52 | NUR ---
The patient appears to be sleeping
--- NOTE | 2019-11-28 00:29 | NUR ---
The patient appears to be sleeping
--- NOTE | 2019-11-28 03:00 | NUR ---
The patient appears to be sleeping
--- NOTE | 2019-11-28 04:38 | NUR ---
The patient appears to be sleeping. Up once since last note to use the bathroom.
--- NOTE | 2019-11-28 06:24 | NUR ---
Patient sleeping on his right side. Respirations are even and nonlabored.
[2019-11-28] MEDS: lactose-reduced food (Ensure High Protein) 237ml bottle PO SCH ×3 (08:00→18:46)
--- NOTE | 2019-11-28 08:05 | NUR ---
Patient up to bathroom using front wheel walker.
--- NOTE | 2019-11-28 09:51 | NUR ---
Patient ate his breakfast, now sleeping on right side. No s/s of distress.
--- NOTE | 2019-11-28 10:56 | NUR ---
Patient is being interviewed for placement at assisted living, [facility].
--- NOTE | 2019-11-28 11:30 | NUR ---
primary rn was sent on a break. pt in restroom at this time, will continue to monitor.
--- NOTE | 2019-11-28 12:39 | NUR ---
Patient resting in semi fowlers position. No s/s of distress noted.
--- NOTE | 2019-11-28 14:25 | NUR ---
[facility] is here interviewing patient for placement.
--- NOTE | 2019-11-28 16:07 | NUR ---
Pt. is sleeping supine in bed, respirations are even and nonlabored.
--- NOTE | 2019-11-28 19:15 | NUR ---
Patient is awake and well oriented. He denies H/I, S/I, or any hallucinations. Patient ate a full dinner. Patient offered linen change and personal care which he denies at this time. Patient ambulated to bathroom using a walker. He returned to bed and is resting in a mid fowlers position.
--- NOTE | 2019-11-28 20:30 | NUR ---
Patient is low fowlers in bed resting quietly with his eyes closed.
--- NOTE | 2019-11-28 21:30 | NUR ---
Patient is sleeping quietly, in view from nursing station.
--- NOTE | 2019-11-28 22:57 | NUR ---
Patient is sleeping quietly, low fowlers position. In view from the nursing station.
--- NOTE | 2019-11-28 23:25 | NUR ---
The patient is sleeping quietly in bed, mid fowlers position.
--- NOTE | 2019-11-29 00:51 | NUR ---
Patient sleeping quietly, mid fowlers position.
--- NOTE | 2019-11-29 01:14 | NUR ---
Patient ambulates to bathroom with use of walker. He returns to bed without problem.
--- NOTE | 2019-11-29 02:15 | NUR ---
Patient is sleeping quietly, low fowlers position.
--- NOTE | 2019-11-29 03:10 | NUR ---
Patient sleeping quietly, low fowlers, sleghtly on his right side.
--- NOTE | 2019-11-29 04:18 | NUR ---
Patient is out of bed and ambulating to bathroom and back. Patient states he wants to go outside. Patient thinks it is daytime. Patient is reoriented to time, he apologises, goes to the bathroom and goes back to bed.
--- NOTE | 2019-11-29 06:05 | NUR ---
Patient is sleeping quietly.
--- NOTE | 2019-11-29 06:53 | NUR ---
Patient up to bathroom with walker, steady on feet.
--- NOTE | 2019-11-29 07:13 | NUR ---
Patient sleeping on his left side, respirations are even and nonlabored.
[2019-11-29] MEDS: lactose-reduced food (Ensure High Protein) 237ml bottle PO SCH ×3 (08:06→18:23)
--- NOTE | 2019-11-29 09:44 | NUR ---
Breaking primary RN, pt is sitting supine in bed, regular breathing present, eys closed, appears to be sleeping, will continue to observe
--- NOTE | 2019-11-29 10:45 | NUR ---
Patient sleeping in bed semi fowlers position. No S/S of distress noted.
--- NOTE | 2019-11-29 12:24 | NUR ---
Pt. lying in bed with eyes closed. No signs of distress noted.
--- NOTE | 2019-11-29 13:48 | NUR ---
Patient laying in bed awake, but quiet. No needs identified.
--- NOTE | 2019-11-29 17:05 | NUR ---
Patient sleeping in bed supine, respirations are even and nonlabored. No s/s of distress noted.
--- NOTE | 2019-11-29 17:27 | NUR ---
Patient up to the restroom using front wheel walker.
--- NOTE | 2019-11-29 18:53 | NUR ---
This patient is mid fowlers in bed. He has eaten his full dinner including his Ensure. Patient is labile and becomes angry when asked questions. Patient is well oriented at this time. He is wearing green scrubs and looks disheveled. This patient is not on a legal hold. He is not here for S/I or H/I. Potential placement elsewhere is pending, unknown time or date.
--- NOTE | 2019-11-29 19:39 | NUR ---
Patient is sleeping quietly, low fowlers position.
--- NOTE | 2019-11-29 20:22 | NUR ---
Patient awoke, ambulated to bathroom and back. He is now sitting at bedside.
--- NOTE | 2019-11-29 21:54 | NUR ---
Patient is laying on his right side, the bed is in mid fowlers position.
--- NOTE | 2019-11-29 23:27 | NUR ---
Patient is sitting up at bedside. He has no requests.
--- NOTE | 2019-11-30 01:57 | NUR ---
Patient is awake and ambulatory to the restroom with the use of a walker.
--- NOTE | 2019-11-30 03:17 | NUR ---
Patient sleeping quietly, partially on his right side. In view from the nurses station.
--- NOTE | 2019-11-30 05:01 | NUR ---
Patient being awoken for vital signs.
--- NOTE | 2019-11-30 06:40 | NUR ---
Patient up and ambulatory to BR, steady gait with walker. No distress observed. Continue to monitor.
[2019-11-30] MEDS: lactose-reduced food (Ensure High Protein) 237ml bottle PO SCH ×3 (08:00→18:29)
--- NOTE | 2019-11-30 08:33 | NUR ---
Patient sitting up and eating. No distress observed. Continue to monitor.
--- NOTE | 2019-11-30 10:35 | NUR ---
Patient ambulatory to bathroom, steady gait. Continue to monitor.
--- NOTE | 2019-11-30 12:55 | NUR ---
Patient eating lunch. No distress observed. Continue to monitor.
--- NOTE | 2019-11-30 14:28 | NUR ---
Patient reclining in bed asleep. No distress observed. Continue to monitor.
--- NOTE | 2019-11-30 15:40 | NUR ---
RN and tech rolled patient and looked at his back and perinium. Slight redness to sacral area. RN cleansed and placed a foam guaze over the area. RN and tech placed sweat pants on patient and cleansed patient and changed his linen and cleaned the bed when patient went to the BR. Patient is now tucked in bed. No distress observed. Continue to monitor.
--- NOTE | 2019-11-30 20:55 | NUR ---
pt is sleeping, no s/s of distress noted. rr unlabored.
--- NOTE | 2019-11-30 22:43 | NUR ---
pt is sleeping, no s/s of distress noted. rr unlabored.
--- NOTE | 2019-12-01 00:21 | NUR ---
pt continues to sleep, rr even and unlabored.
--- NOTE | 2019-12-01 03:01 | NUR ---
pt appears to be asleep, no s/s of distress noted.
--- NOTE | 2019-12-01 05:57 | NUR ---
pt appears to be asleep, no s/s of distress noted.
--- NOTE | 2019-12-01 07:00 | NUR ---
pt is laying on his right side
[2019-12-01] MEDS: lactose-reduced food (Ensure High Protein) 237ml bottle PO SCH ×3 (08:00→18:38)
--- NOTE | 2019-12-01 09:00 | NUR ---
pt is laying on his back. sitting in bed eating breakfast.
--- NOTE | 2019-12-01 11:00 | NUR ---
pt ambulated to bathroom using walker
--- NOTE | 2019-12-01 13:00 | NUR ---
pt is eating lunch in his bed
--- NOTE | 2019-12-01 15:00 | NUR ---
pt is resting in bed.
--- NOTE | 2019-12-01 16:00 | NUR ---
pt is sleeping
--- NOTE | 2019-12-01 18:01 | NUR ---
pt sleeping in bed
--- NOTE | 2019-12-02 06:25 | NUR ---
RECEIVED REPORT FROM SONIA PEÑA, PT IS RESTING WITH KNEES UP AND HOB UP AT APPROX 70 DEGREES, WALKER AT BEDSIDE FOR AMBULATION NEEDS, PT IN LINE OF SITE OF NURSES STATION, CASEY ACHARYA AND MANDY IGNACIO AND VAMSHI.
[2019-12-02] MEDS: lactose-reduced food (Ensure High Protein) 237ml bottle PO SCH ×3 (08:19→18:07)
--- NOTE | 2019-12-02 08:26 | NUR ---
PAGEEdy [facility] FOR UPDATE OF MEDI-COLE TRANSITION FROM [facility]NER[facility] AND THEN TO DETERMINE IF PT WILL GO TO ASSISTED LIVING UNTIL CONSERVATORSHIP CAN BE ESTABLISHED.
--- NOTE | 2019-12-02 08:31 | NUR ---
ELIZABETH CALLED BACK, SHE WILL FOLLOW UP WITH [facility] REGARDING CONSERVATORSHIP TODAY, ALSO WILL FOLLOW UP WITH [facility] REGARDING TRANSITION, AND FOLLOW UP WITH ADMIN FOR DECISION ONCE [facility] CHANGED TO PLACE IN [facility] UNTIL PERMANENT PLACEMENT CAN BE ESTABLISHED
--- NOTE | 2019-12-02 08:49 | NUR ---
GAVE UPDATE TO TAYLER ED DIRECTOR AND SHE WILL FOLLOW UP WITH ADMIN AT 1400 MEETING.
--- NOTE | 2019-12-02 09:21 | NUR ---
DR CHARLTON GIVE BRIEF UPDATE/REPORT ON PT STATUS, DR CHARLTON TO EVALUATE PT.
--- NOTE | 2019-12-02 10:52 | NUR ---
PT IS SLEEPING, RESPIRATIONS SPONTANEOUS, EVEN AND UNLABORED, NO S/S OF DISTRESS, DISCOMFORT OR AGITATION AT THIS TIME, PT IN LINE OF SITE OF NURSES STATION VISIBLE TO CASEY ACHARYA AND MANDY BURROUGHS.
--- NOTE | 2019-12-02 13:00 | NUR ---
LUNCH TRAY PLACED AT BEDSIDE, PT SITTING UP EATING NOW.
--- NOTE | 2019-12-02 13:57 | NUR ---
PT SITTING UP AT BEDSIDE WITH FEET ON FLOOR. WALKER AT BEDSIDE IF NEEDED, NO NEEDS AT THIS TIME.
--- NOTE | 2019-12-02 14:02 | NUR ---
PT AMBULATORY TO BATHROOM WITH USE OF WALKER, HAS STEADY GAIT. PT STANDS AND USES WALKER STANDING AND WALKING INDEPENDENTLY.
--- NOTE | 2019-12-02 19:03 | NUR ---
Patient sitting on bed, feet on floor. He is eatilng his dinner. Patient consumed all of his Ensure. Addendum: 12/03/19 at 0514 by TRES Patient denies any complaints, is ambulatory with his walker, he states that he desires to be left alone.
--- NOTE | 2019-12-02 19:26 | NUR ---
Patient ambulated to bathroom and back with use of a walker. Patient ate his full dinner including his insure. Patient does not like to talk, he becomes annoyed when requested to speak. The patient sits at bedside when not in bed. Patient puts on and takes off his own shoes when getting in and out of bed.
--- NOTE | 2019-12-02 20:00 | NUR ---
Patient is sitting in bed in low fowlers position, resting, eyes closed.
--- NOTE | 2019-12-02 22:40 | NUR ---
Patient is awake and snacking from his dinner tray.
--- NOTE | 2019-12-02 23:33 | NUR ---
Patient is low fowlers position in bed.
--- NOTE | 2019-12-03 01:45 | NUR ---
Patient is sleeping on his right side in bed.
--- NOTE | 2019-12-03 02:31 | NUR ---
Patient is awake and sitting up in bed. In view from the nursing station.
--- NOTE | 2019-12-03 03:38 | NUR ---
Patient is sleeping quietly, low fowlers position, slightly on his right side. Warm blanket placed.
--- NOTE | 2019-12-03 04:16 | NUR ---
Patient is sleeping quietly.
--- NOTE | 2019-12-03 05:00 | NUR ---
Patient is out of bed using a walker to go to bathroom and back. Patient is now back in bed, sitting up with feet on the floor resting.
--- NOTE | 2019-12-03 07:00 | NUR ---
pt sleeping on his right side
[2019-12-03] MEDS: lactose-reduced food (Ensure High Protein) 237ml bottle PO SCH ×3 (08:48→18:00)
--- NOTE | 2019-12-03 09:00 | NUR ---
pt ate his breakfast. pt ambulated to bathroom with walker
--- NOTE | 2019-12-03 11:00 | NUR ---
pt refused to go outside or take a shower today
--- NOTE | 2019-12-03 13:00 | NUR ---
pt ate his lunch sitting in a chair. bedding changed
--- NOTE | 2019-12-03 14:00 | NUR ---
pt ambulated to bathroom using his walker
--- NOTE | 2019-12-03 16:00 | NUR ---
pt is laying in bed. pt has been very irriated today towards staff and other patients
--- NOTE | 2019-12-03 17:39 | NUR ---
pt is resting in bed. eye open. starring at the ceiling
--- NOTE | 2019-12-03 18:47 | NUR ---
Patient is Mid Fowlers in bed eating dinner. Patient is oriented to situation, he is grumpy when questioned. Patient ambulates with use of walker. He is in no distress.
--- NOTE | 2019-12-03 20:27 | NUR ---
Patient is low fowlers in bed sleeping.
--- NOTE | 2019-12-03 21:35 | NUR ---
Patient is sleeping, mid fowlers position in bed.
--- NOTE | 2019-12-03 23:07 | NUR ---
Patient is sleeping med fowlers in bed with his knees flexed.
--- NOTE | 2019-12-03 23:17 | NUR ---
Patient up to bathroom, he ambulates with a walker.
--- NOTE | 2019-12-04 01:18 | NUR ---
Pt resting comfortably, respirations normal, no s/s of distress.
--- NOTE | 2019-12-04 02:37 | NUR ---
Patient awoke and sat at his bedside table to prepare for breakfast. Patient was reoriented to time. He then requested a sweatshirt. Patient was advised that green scrubs were all we were authorized to give. Patient offered more warm blankets, he declined. Patient returned to sleep in a mid fowlers position.
--- NOTE | 2019-12-04 03:01 | NUR ---
Patient awoke when a new patient came in, he made a racist comment. Patient advised to keep his opinions to himself.
--- NOTE | 2019-12-04 04:04 | NUR ---
Patient is supine in bed. Sleeping on his right side. Fresh blankets in place.
--- NOTE | 2019-12-04 04:05 | NUR ---
Flores camarena in [facility] - 12/04/19 at 0406 by TRES Patient sleeping quietly on her left side.
--- NOTE | 2019-12-04 06:00 | NUR ---
Patient is sitting on side of bed.
[2019-12-04] MEDS: lactose-reduced food (Ensure High Protein) 237ml bottle PO SCH ×3 (08:20→18:57)
--- NOTE | 2019-12-05 06:06 | NUR ---
EOS sumary: See hourly rounding notes. Pt. slept most of the noc.
--- NOTE | 2019-12-05 07:32 | NUR ---
PT SLEEPING, RESPIRATION SPONTANEOUS, EVEN AND UNLABORED, NO S/S OF DISTRESS DISCOMFORT OR AGITATION AT THIS TIME, PT IN LINE OF SITE OF NURSES STATION, WILL CONTINUE TO MONITOR PT, NO NEEDS AT THIS TIME.
[2019-12-05] MEDS: lactose-reduced food (Ensure High Protein) 237ml bottle PO SCH ×3 (08:23→18:00)
--- NOTE | 2019-12-05 08:23 | NUR ---
BREAKFAST TRAY PLACED AT BEDSIDE, PT SITTING UP EATING NOW, SUPPLEMENT DRINK INCLUDED WITH MEAL,.
--- NOTE | 2019-12-05 13:25 | NUR ---
FRANTZ DRAGLINE OPERATOR HELPER SENT OUT LTC REFERRALS TODAY TO FOLLOWING: [facility] ph: [phone] [facility] ph: [phone] [place] ph: [phone] [facility] ph: [phone] [facility] ph: [phone] [facility] ph: [phone]
--- NOTE | 2019-12-05 13:31 | NUR ---
PT IS SITTING UP EAT LUNCH TRAY NOW
--- NOTE | 2019-12-05 15:40 | NUR ---
PRESSURE RELIEVING PAD PLACED ON PTS COCCYX TO PREVENT PRESSURE SORE. PT MOVED TO BEDSIDE CHAIR WITH GEOMATT TO AID IN PREVENTION OF PRESSURE SORE.
--- NOTE | 2019-12-05 16:49 | NUR ---
PT GIVEN NAIL CLIPPERS AND IS CURRENTLY CUTTING FINGERNAILS INDEPENDENTLY.
--- NOTE | 2019-12-05 19:00 | NUR ---
Patient eating dinner, sitting on bed with feet on floor.
--- NOTE | 2019-12-05 20:13 | NUR ---
Patient is sleeping quietly, mid fowlers in bed.
--- NOTE | 2019-12-05 22:33 | NUR ---
Patient ambulated to bathroom. He is now sitting on bed.
--- NOTE | 2019-12-05 23:45 | NUR ---
Patient is laying on his left side, he is asleep.
--- NOTE | 2019-12-06 00:29 | NUR ---
Patient sleeping quietly on his left side, knees flexed.
--- NOTE | 2019-12-06 01:22 | NUR ---
Patient is sleeping supine in bed with his knees flexed.
--- NOTE | 2019-12-06 02:34 | NUR ---
Patient is sleeping mid fowlers in bed.
--- NOTE | 2019-12-06 06:40 | NUR ---
Patient sleeping on left side. No distress observed. Continue to monitor.
[2019-12-06] MEDS: lactose-reduced food (Ensure High Protein) 237ml bottle PO SCH ×3 (08:00→18:00)
--- NOTE | 2019-12-06 08:03 | NUR ---
Patient ambulatory to BR with walker, steady gait. No distress observed. Continue to monitor.
--- NOTE | 2019-12-06 10:10 | NUR ---
Patient sleeping supine. No distress observed. Continue to monitor.
--- NOTE | 2019-12-06 12:39 | NUR ---
Patient sleeping on left side. No distress observed. Continue to monitor.
--- NOTE | 2019-12-06 13:20 | NUR ---
Patient eating lunch. No distress observed. Continue to monitor.
--- NOTE | 2019-12-06 15:20 | NUR ---
Patient up to bathroom with walker, steady gait. No distress observed. Continue to monitor.
--- NOTE | 2019-12-06 16:59 | NUR ---
Patient sleeping supine. No distress observed. Continue to monitor.
--- NOTE | 2019-12-06 18:34 | NUR ---
Assumed care of patient, pt. sitting up at bedside eating at this time. No s/s of distress, will monitor.
--- NOTE | 2019-12-06 20:30 | NUR ---
Completed 1:1 at bedside, pt. presents as confused (A&O x2) and slightly agitated at times. Pt. reports that he believes it is New Year's Bria and he is here because he was "kicked out" of the place he had been staying. Pt. reports the delusion he will be leaving in the morning, states, "They are kicking me out tomorrow. I have to get my things and go across the street to the [facility] [employer]." He reports he then plans to go to [place] on a bus. Pt. denies any S/I or A/V/ARORA, and does not appear to be internally preoccupied. His speech is circumstantial, however he is able to be redirected. Pt. continues to ambulate independently with use of FWW.
--- NOTE | 2019-12-06 22:30 | NUR ---
Pt. sleeping at this time, laying on his left side, rr even and unlabored.
--- NOTE | 2019-12-07 00:32 | NUR ---
Pt. continues to sleep at this time, makes occasional body adjustments. Will continue to monitor.
--- NOTE | 2019-12-07 02:30 | NUR ---
Pt. continues to sleep, laying on his rt. side, rr even and unlabored.
--- NOTE | 2019-12-07 04:32 | NUR ---
Pt. sleeping, laying on left side, rr even and unlabored.
--- NOTE | 2019-12-07 05:54 | NUR ---
Pt. continues to sleep, no s/s of distress. Will monitor.
[2019-12-07] MEDS: lactose-reduced food (Ensure High Protein) 237ml bottle PO SCH ×3 (08:15→18:41)
--- NOTE | 2019-12-07 08:25 | NUR ---
sitting up eating
--- NOTE | 2019-12-07 09:58 | NUR ---
pt in bed sleeping ambulated to bathroom with walker and did self care in bathroom
--- NOTE | 2019-12-07 11:31 | NUR ---
pt in bed appers to be sleeping rise and fall of chest noted seen repostioning self
--- NOTE | 2019-12-07 13:58 | NUR ---
pt sitting up at edge of bed eating lunch
--- NOTE | 2019-12-07 15:42 | NUR ---
primary rn was sent on break. pt resting on right side, no s/s of respiratory distress.
--- NOTE | 2019-12-07 16:20 | NUR ---
pt sitting up at edge of bed
--- NOTE | 2019-12-07 16:58 | NUR ---
Patient is walking to restroom. Still non verbal with staff unless he's angry
--- NOTE | 2019-12-07 19:00 | NUR ---
Pt resting comfortably, no s/s of distress, respirations normal.
--- NOTE | 2019-12-07 20:00 | NUR ---
Pt resting comfortably, no s/s of distress, respirations normal.
--- NOTE | 2019-12-07 20:39 | NUR ---
Pt resting comfortably, no s/s of distress, respirations normal.
--- NOTE | 2019-12-07 22:00 | NUR ---
Pt up to restroom.
--- NOTE | 2019-12-07 23:00 | NUR ---
Pt repositioning self in bed.
--- NOTE | 2019-12-08 | NUR ---
Pt resting comfortably, no s/s of distress, respirations normal.
--- NOTE | 2019-12-08 01:00 | NUR ---
Pt resting comfortably, no s/s of distress, respirations normal.
--- NOTE | 2019-12-08 02:00 | NUR ---
Pt resting comfortably, no s/s of distress, respirations normal.
--- NOTE | 2019-12-08 03:04 | NUR ---
Pt resting comfortably, no s/s of distress, respirations normal.
--- NOTE | 2019-12-08 04:00 | NUR ---
up to restroom
--- NOTE | 2019-12-08 05:00 | NUR ---
Pt resting comfortably, no s/s of distress, respirations normal.
--- NOTE | 2019-12-08 05:48 | NUR ---
Pt resting comfortably, no s/s of distress, respirations normal.
--- NOTE | 2019-12-08 07:00 | NUR ---
PT RESTING IN BED. LAYING UP SIDE DOWN IN THE BED BUT STATES HE IS COMFORTABLE AND DOESNT WANT TO MOVE
[2019-12-08] MEDS: lactose-reduced food (Ensure High Protein) 237ml bottle PO SCH ×3 (08:49→18:53)
--- NOTE | 2019-12-08 09:00 | NUR ---
PT AMBULATED TO BATHROOM WITH HIS WALKER
--- NOTE | 2019-12-08 11:00 | NUR ---
pt is laying in his bed. pt has been short with staff today when asked questions.
--- NOTE | 2019-12-08 12:50 | NUR ---
Patient is lying on his left side, no distress at this time. RR is 14.
--- NOTE | 2019-12-08 13:00 | NUR ---
pt is laying his bed.
--- NOTE | 2019-12-08 15:00 | NUR ---
pt is laying his bed.
--- NOTE | 2019-12-08 15:02 | NUR ---
Patientm appears to be resting with eyes closed on their right side. Patient does not appear to be in distress, fresh water at bedside.
--- NOTE | 2019-12-08 17:00 | NUR ---
pt resting in bed. no concerns at this time
--- NOTE | 2019-12-08 19:00 | NUR ---
Pt resting quietly, respirations normal, no s/s of distress.
--- NOTE | 2019-12-08 20:00 | NUR ---
Pt up to restroom.
--- NOTE | 2019-12-08 21:00 | NUR ---
Pt resting quietly, respirations normal, no s/s of distress.
--- NOTE | 2019-12-08 22:00 | NUR ---
Pt resting quietly, respirations normal, no s/s of distress.
--- NOTE | 2019-12-08 23:00 | NUR ---
Pt up to bathroom.
--- NOTE | 2019-12-08 23:46 | NUR ---
Pt resting quietly, respirations normal, no s/s of distress.
--- NOTE | 2019-12-09 01:11 | NUR ---
Pt resting quietly, respirations normal, no s/s of distress.
--- NOTE | 2019-12-09 02:00 | NUR ---
Pt resting quietly, respirations normal, no s/s of distress.
--- NOTE | 2019-12-09 03:00 | NUR ---
Pt resting quietly, respirations normal, no s/s of distress.
--- NOTE | 2019-12-09 04:35 | NUR ---
Pt resting quietly, respirations normal, no s/s of distress.
--- NOTE | 2019-12-09 06:53 | NUR ---
received patient report, patient sleeping
[2019-12-09] MEDS: lactose-reduced food (Ensure High Protein) 237ml bottle PO SCH ×3 (08:39→18:30)
--- NOTE | 2019-12-09 13:46 | NUR ---
patient sitting up in bed, eating lunch
--- NOTE | 2019-12-09 17:56 | NUR ---
PATIENT ASLEEP, HAS BEEN UP TO THE BATHROOM A FEW TIMES TODAY AND HAS COMPLETED ALL ADLS INDEPENDENTLY
--- NOTE | 2019-12-09 18:40 | NUR ---
PT EATING DINNER AT BEDSIDE
--- NOTE | 2019-12-09 20:40 | NUR ---
PT UP OUT OF BED TO BATHROOM / ANOTHER PATIENT IN THE BATHROOM PT SAT NEAR DOOR ON CHAIR TO WAIT HIS TURN
--- NOTE | 2019-12-09 23:28 | NUR ---
PT UP OUT OF BED TO BATHROOM
--- NOTE | 2019-12-10 01:40 | NUR ---
PT UP OUT OF BED TO BATHROOM WITH WALKER
--- NOTE | 2019-12-10 02:40 | NUR ---
PT LAYING SUPINE SLEEPING PEACFULLY / RESP UNLABOERD WILL CONTINUE TO MONITOR AND REASSESS
--- NOTE | 2019-12-10 03:40 | NUR ---
PT LAYING SUPINE SLEEPING PEACFULLY / RESP UNLABOERD WILL CONTINUE TO MONITOR AND REASSESS
--- NOTE | 2019-12-10 04:40 | NUR ---
PT LAYING SUPINE SLEEPING PEACFULLY / RESP UNLABOERD WILL CONTINUE TO MONITOR AND REASSESS
--- NOTE | 2019-12-10 05:34 | NUR ---
PT SLEEPING ON HIS RIGHT SIDE / AUROSABLE WITH VS / WILL CONTINUE TO MONITOR AND REASSESS
--- NOTE | 2019-12-10 05:45 | NUR ---
PT UP OUT OF BED WITH WALKER TO BATHROOM. BOTH MYSELF AND COWORKER CASEY CHAKRABORTY SAID GOODMORNING TO PT HE PASSED THE NURSES STATION. PT GRITTED HIS TEETH AND SNARLED AT US HE PUSHED HIS WALKER TOWARDS THE BATHRROM
--- NOTE | 2019-12-10 06:30 | NUR ---
pt is sleeping. no concerns at this time
[2019-12-10] MEDS: lactose-reduced food (Ensure High Protein) 237ml bottle PO SCH ×3 (08:45→18:00)
--- NOTE | 2019-12-10 08:46 | NUR ---
no concerns at this time. pt is eating his breakfast
--- NOTE | 2019-12-10 10:00 | NUR ---
PT RESTING IN HIS ROOM
--- NOTE | 2019-12-10 12:00 | NUR ---
PT EATING IN HIS BED
--- NOTE | 2019-12-10 14:00 | NUR ---
PT AMBULATED TO BATHROOM
--- NOTE | 2019-12-10 16:00 | NUR ---
PT IS SLEEPING IN HIS ROOM
--- NOTE | 2019-12-10 16:16 | NUR ---
ELIZABETH THINKS SHE MAY HAVE FOUND THE PATIENT PLACEMENT IN THE JOINER AREA
--- NOTE | 2019-12-10 17:49 | NUR ---
PT LAYING IN BED.
--- NOTE | 2019-12-10 20:00 | NUR ---
The patient has been very quiet. He did eat his dinner. He did not speak to answer questions. He has not been disruptive in any way. He ambulates to and from the bathroom independantly.
--- NOTE | 2019-12-10 22:18 | NUR ---
The patient is resting quietly on his bed.
--- NOTE | 2019-12-10 23:48 | NUR ---
The patient appears to be sleeping
--- NOTE | 2019-12-11 02:44 | NUR ---
The patient appears to be sleeping. Was up once to use the bathroom
--- NOTE | 2019-12-11 04:15 | NUR ---
The patient is up to use the bathroom.
--- NOTE | 2019-12-11 06:51 | NUR ---
Patient is resting in bed peacefully at change of shift. No respiratory distress observed. Received report from CASEY Zamora. Patient may potentially be transferred to a SNF in [place].
--- NOTE | 2019-12-11 06:56 | NUR ---
Note génesisaleyda in EDM - 12/11/19 at 1047 by LARRY Patient is sitting at edge of bed at change of shift. She is seen ambulating to the bathroom with her 2 wheel walker. She requests coffee and this was provided. Will continue to monitor.
[2019-12-11] MEDS: lactose-reduced food (Ensure High Protein) 237ml bottle PO SCH ×3 (08:24→18:00)
--- NOTE | 2019-12-11 08:30 | NUR ---
Patient is laying on right side up on his elbow, eating breakfast.
--- NOTE | 2019-12-11 10:47 | NUR ---
Patient is resting in bed peacefully at this time.
--- NOTE | 2019-12-11 13:20 | NUR ---
Patient sitting at bedside eating lunch, no distress observed.
--- NOTE | 2019-12-11 15:20 | NUR ---
Patient is resting in bed peacefully. No distress observed.
--- NOTE | 2019-12-11 16:02 | NUR ---
Patient is seen ambulating with 2 wheel walker to the bathroom.
[2019-12-11] MEDS ORDERED: LEVO75TA PO (17:27)
[2019-12-11] MEDS ORDERED: RISP1TAB3 PO (17:27)
[2019-12-11] MEDS ORDERED: QUET25TA PO (17:27)
[2019-12-11] MEDS ORDERED: CLON-529 PO (17:27)
[2019-12-11] MEDS ORDERED: OXYB5SYR7 PO (17:27)
[2019-12-11] MEDS ORDERED: DULO20CA50 PO (17:27)
--- NOTE | 2019-12-11 19:00 | NUR ---
Patient is awake and well oriented. Patient ate his dinner 100 percent. Patient ambulated to the bathroom to void. He returns to bed and lays down. He is resting quietly in a mid fowlers position. Patient is well oriented. Patient refuses to interview with this automobile service writer. He denies any complaints.
--- NOTE | 2019-12-11 20:11 | NUR ---
Patient is sleeping quietly, mid fowlers position. Patient is in direct view from the nursing station.
--- NOTE | 2019-12-11 21:38 | NUR ---
Patient is sitting up at bedside, feet on the floor. Patient denies any needs.
--- NOTE | 2019-12-11 22:27 | NUR ---
pt sleeping peacfully on his right side with the head of bed elevated . Resp unlabored will continue to monitor and reassess
--- NOTE | 2019-12-11 22:32 | NUR ---
Assumed care of patient for primary nurse break period. Pt resting peacefully in bed . Hob elevated 30 degrees Resp unlabored , will continue to monitor and reassess as needed
--- NOTE | 2019-12-11 23:18 | NUR ---
Patient is sleeping quietly with his head at the foot of the bed.
--- NOTE | 2019-12-12 01:38 | NUR ---
Patient sleeping with his head toward the foot of the bed.
--- NOTE | 2019-12-12 03:22 | NUR ---
Patient still sleeping with his head at the foot of the bed. He has repositioned onto his right side.
--- NOTE | 2019-12-12 04:00 | NUR ---
Patient sleeping quietly.
--- NOTE | 2019-12-12 05:25 | NUR ---
Patient remains sleeping quietly.
[2019-12-12] MEDS: lactose-reduced food (Ensure High Protein) 237ml bottle PO SCH ×3 (08:10→18:00)
--- NOTE | 2019-12-12 18:45 | NUR ---
Patient is sleeping. His head is to the foot of the bed.
--- NOTE | 2019-12-12 19:30 | NUR ---
Patient is sleeping quietly, his head at the foot of the bed. In view from the nursing station.
--- NOTE | 2019-12-12 22:02 | NUR ---
Patient up to bathroom with use of walker. Patient gets angry when asked if he had a bowel movement? Patient states "what do you think I went to the bathroom for?" Patient is resistant to questions. This sports writer explained to the patient why questions are asked. The patient was reassured that we are looking out for his best intrests.
--- NOTE | 2019-12-13 00:31 | NUR ---
Patient is sleeping quietly in a supine position, his head at the foot of the bed.
--- NOTE | 2019-12-13 01:15 | NUR ---
Patient is up to bathroom. Patient walks slowly with use of walker. He is now sitting on bed with feet on floor. Patient denies any needs.
--- NOTE | 2019-12-13 03:18 | NUR ---
Patient in bed lying on his back, pt. appears to be sleeping with no distress noted. Respirations even and unlabored.
--- NOTE | 2019-12-13 03:58 | NUR ---
Patient is sleeping with his head near the foot of the bed on his right side.
--- NOTE | 2019-12-13 05:17 | NUR ---
Patient sleeping quietly no distress noted. Respirations even and unlabored.
--- NOTE | 2019-12-13 05:40 | NUR ---
Patient sleeping quietly, low fowlers position in bed, his head is at the foot of the bed.
[2019-12-13] MEDS: lactose-reduced food (Ensure High Protein) 237ml bottle PO SCH ×3 (08:00→18:00)
--- NOTE | 2019-12-13 08:24 | NUR ---
Very isolative, not wanting to engage in conversation, is currently eating breakfast.
--- NOTE | 2019-12-13 09:50 | NUR ---
Resting in bed, head is resting on footboard of bed.
--- NOTE | 2019-12-13 13:50 | NUR ---
Ate lunch and returned to bed. independently ambulating to BR.
--- NOTE | 2019-12-13 14:42 | NUR ---
Continues to be isolative, when approached responds very defensively. When left alone, rests quietly on the bed.
--- NOTE | 2019-12-13 16:52 | NUR ---
Has had a dry cough, initially heard expiratory wheezes which cleared with repositioning. PCT reports cough has been worsening over the past few says.
--- NOTE | 2019-12-13 17:43 | NUR ---
Resting comfortably in bed.
--- NOTE | 2019-12-14 00:38 | NUR ---
relieving RN for break, pt amb with walker to restroom
--- NOTE | 2019-12-14 05:53 | NUR ---
Pt. noted to have moist cough. RLL coarse to auscultation but clears with coughing. Pt. encouraged to cough and deep breathe tonight. VS 98.7, 103/min, 18, 96/52, 92% on RA.
--- NOTE | 2019-12-14 06:15 | NUR ---
Pt. status endorsed to CASEY Langford.
[2019-12-14] MEDS ORDERED: albuterol 2.5 MG/3 ML nebule NEB ONE (08:30)
[2019-12-14] MEDS: lactose-reduced food (Ensure High Protein) 237ml bottle PO SCH ×3 (08:32→18:54)
[2019-12-14 16:13] LABS: BASOPHILS % (AUTO) 0.6 % (0-1); EOSINOPHILS # (AUTO) 0.1 X10'3 (0-0.9); EOSINOPHILS % (AUTO) 1.1 % (0-6); HEMATOCRIT 41.9 % (42.0-52.0); HEMOGLOBIN 14.1 g/dl (14.0-17.9); LYMPHOCYTES # (AUTO) 1.4 X10'3 (1.1-4.8); LYMPHOCYTES % (AUTO) 22.3 % (21-51); MEAN CORPUSCULAR HEMOGLOBIN 31.3 PG (27.0-31.0); MEAN CORPUSCULAR HGB CONC 33.7 g/dL (33.0-36.5); MEAN CORPUSCULAR VOLUME 92.8 FL (78-98); MONOCYTES % (AUTO) 15.7 % (2-12); NEUTROPHILS # (AUTO) 3.8 X10'3 (1.8-7.7); NEUTROPHILS % (AUTO) 60.3 % (42-75); PLATELET COUNT 161 X10'3 (140-440); RED BLOOD COUNT 4.51 X10'6 (4.70-6.10); RED CELL DISTRIBUTION WIDTH 16.4 % (11.5-14.5); WHITE BLOOD COUNT 6.3 X10'3 (4.5-11.0)
[2019-12-14 16:29] LABS: ALANINE AMINOTRANSFERASE 20 U/L (12-78); ALBUMIN 3.7 G/DL (3.4-5.0); ALBUMIN/GLOBULIN RATIO 0.7 (1.1-1.5); ALKALINE PHOSPHATASE 73 IU/L (46-116); ANION GAP 11 (8-16); ASPARTATE AMINO TRANSFERASE 24 U/L (10-37); BILIRUBIN,TOTAL 0.5 MG/DL (0.1-1.0); BLOOD UREA NITROGEN 46 MG/DL (7-18); BUN/CREATININE RATIO 32.9 (5.4-32.0); CHLORIDE 102 MMOL/L (99-107); GLUCOSE 118 MG/DL (70-104); SODIUM 140 MMOL/L (135-145); TOTAL CARBON DIOXIDE 26.9 MMOL/L (24-32); TOTAL PROTEIN 8.9 G/DL (6.4-8.2); eGFR 48 ML/MIN
--- NOTE | 2019-12-14 17:15 | NUR ---
Notified Dr Bacon of temp of 100.1 F and pulse ox of 90.
--- NOTE | 2019-12-14 17:51 | NUR ---
Dr Powers notified of his increased heart rate, increased temp and coughing with wheezes from the RLL, and his trouble keeping his sats up past 90% at times.
[2019-12-14] MEDS ORDERED: levoFLOXACIN-Levaquin 750MG/D5 150 ML IV ONE (18:25)
[2019-12-14] MEDS ORDERED: normal saline 1000ML IV soln IVB ONE (18:25)
[2019-12-14] MEDS ORDERED: acetaminophen 325mg tablet PO ONE (19:15)
--- NOTE | 2019-12-14 19:30 | NUR ---
Notified MD Petersen of 101.5 degree oral temp who ordered for the patient to receive 650mg of tylenol.
[2019-12-14 19:51] LABS: CLARITY,URINE SLIGHTLY CLOUDY (Clear); COLOR,URINE YELLOW (Yellow); GLUCOSE, URINE NEGATIVE (Neg); KETONES,URINE NEGATIVE (Neg); LEUKOCYTE ESTERASE ,URINE NEGATIVE (Neg); NITRITES, URINE POSITIVE (Neg); OCCULT BLOOD,URINE SMALL (Neg); PROTEIN,URINE TRACE mg/dl (Neg); UA COLLECTION TYPE STRAIGHT CATH; UROBILINOGEN,URINE 0.2 E.U/dL (0.2-1.0)
[2019-12-14] MEDS ORDERED: mag hydrox/Alum hydrox/simeth 30ml oral suspension PO PRN (20:05)
[2019-12-14] MEDS ORDERED: ondansetron/PF 4mg/2ml inj IV PRN (20:05)
[2019-12-14] MEDS ORDERED: magnesium hydroxide 30ml (MOM) UD suspension PO PRN (20:05)
[2019-12-14] MEDS ORDERED: magnesium Cl slow-release 64mg tablet PO PRN (20:05)
[2019-12-14] MEDS ORDERED: acetaminophen 325mg tablet PO PRN ×2 (20:05)
[2019-12-14] MEDS ORDERED: normal saline 1000ml 1,000 ML IV ONE (20:05)
[2019-12-14] MEDS ORDERED: potassium CL 10mEq/100ml bag 100 ML IV PRN ×2 (20:05)
[2019-12-14] MEDS ORDERED: potassium Cl 20 mEq SR tablet PO PRN ×2 (20:05)
[2019-12-14] MEDS ORDERED: magnesium 4gm in 100ml NS 100 ML IV PRN (20:05)
[2019-12-14] MEDS ORDERED: magnesium 2GM in 50ml NS 50 ML IV PRN (20:05)
[2019-12-14 20:16] LABS: BACTERIA,URINE 3+ /HPF (Neg); MUCUS STRANDS NONE SEEN /LPF (Neg); RBC,URINE 0-2 /HPF (0-2); SQUAMOUS EPITHELIAL CELL,UR FEW /LPF (FEW); WBC,URINE 0-4 /HPF (0-4)
--- NOTE | 2019-12-14 20:41 | NUR ---
Pt is lying on his right side in bed at this time, he is more comfortable now however he continuously removed his nasal cannula and requires reminder every few minutes.
[2019-12-15] MEDS: lactose-reduced food (Ensure High Protein) 237ml bottle PO SCH ×2 (08:00→16:23)
[2019-12-15] MEDS ORDERED: K and/or MAG REPLACEMENT MC SCH (08:00)
[2019-12-15] MEDS ORDERED: enoxaparin 40mg/0.4ml syringe SQ SCH (08:00)
[2019-12-15 14:00] VITALS: BP 108/69
--- NOTE | 2019-12-15 16:22 | NUR ---
All medication non administered on this chart, look to admission chart to see medications given and charting completed.
== END 2019-12-14 20:06 | disposition home or self-care (01) ==
LOC: ER 08:47 → EDBD 08:47 → ER 12-14 20:06
DX: S80.12XA Contusion of left lower leg, initial encounter (principal); S80.11XA Contusion of right lower leg, initial encounter; R62.7 Adult failure to thrive; J18.9 Pneumonia, unspecified organism; F03.90 Unspecified dementia, unspecified severity, without behavioral disturbance, psychotic disturbance, mood disturbance, and anxiety; L03.116 Cellulitis of left lower limb; L03.115 Cellulitis of right lower limb; M79.662 Pain in left lower leg; M79.661 Pain in right lower leg; Z68.1 Body mass index [BMI] 19.9 or less, adult; Z59.0 Homelessness; Z56.0 Unemployment, unspecified; Z79.899 Other long term (current) drug therapy; X58.XXXA Exposure to other specified factors, initial encounter; Y93.89 Activity, other specified; Y92.89 Other specified places as the place of occurrence of the external cause; Y99.8 Other external cause status
CPT/HCPCS: 36415; 80048; 80053; 81001; 83605; 85025; 87077; 87088; 87186; 87502; 87503; 94640; 96365; 96366; 99284; 99285

== ENCOUNTER 2019-12-14 20:02 | Inpatient (IN) | payer MEDICAID ==
[~2019-12-14] VITALS: Ht 180.3 cm; Wt 48.5 kg
[~2019-12-14 20:02] MED LIST changes: +CLON-529 PO; +DULO20CA50 PO; -LEVO500T2 PO; +LEVO75TA PO; +NO HOME MEDS; +OXYB5SYR7 PO; +QUET25TA PO; +RISP1TAB3 PO
[2019-12-14] MEDS: oseltamivir phos 75mg capsule PO SCH (21:10)
[2019-12-15] MEDS ORDERED: normal saline 1000ml 1,000 ML IV ONE (00:10)
[2019-12-15] MEDS ORDERED: magnesium hydroxide 30ml (MOM) UD suspension PO PRN (00:10)
[2019-12-15] MEDS ORDERED: ondansetron/PF 4mg/2ml inj IV PRN (00:10)
[2019-12-15] MEDS ORDERED: mag hydrox/Alum hydrox/simeth 30ml oral suspension PO PRN (00:10)
[2019-12-15] MEDS ORDERED: magnesium 4gm in 100ml NS 100 ML IV PRN (00:10)
[2019-12-15] MEDS ORDERED: potassium CL 10mEq/100ml bag 100 ML IV PRN ×2 (00:10)
[2019-12-15] MEDS ORDERED: potassium Cl 20 mEq SR tablet PO PRN ×2 (00:10)
[2019-12-15] MEDS ORDERED: magnesium Cl slow-release 64mg tablet PO PRN (00:10)
[2019-12-15] MEDS ORDERED: acetaminophen 325mg tablet PO PRN ×2 (00:10)
[2019-12-15] MEDS ORDERED: magnesium 2GM in 50ml NS 50 ML IV PRN (00:10)
[2019-12-15] MEDS ORDERED: ipratropium/albuterol 3ml nebule NEB PRN (00:15)
[2019-12-15 06:52] VITALS: BP 108/67
[2019-12-15] MEDS: K and/or MAG REPLACEMENT MC SCH ×2 (07:12→20:00)
--- NOTE | 2019-12-15 07:14 | NUR ---
Patient in room ED 12. I have received report from Palmira PEÑA and had the opportunity to ask questions and assume patient care.
[2019-12-15] MEDS: CefTRIAXone 2gm/D5W 50ml 50 ML IV SCH (07:55)
[2019-12-15] MEDS: oseltamivir phos 75mg capsule PO SCH ×2 (07:55→22:26)
[2019-12-15] MEDS: enoxaparin 40mg/0.4ml syringe SQ SCH (07:56)
[2019-12-15] MEDS: ipratropium/albuterol 3ml nebule NEB SCH ×3 (09:30→22:07)
[2019-12-15 14:00] VITALS: BP 108/69
[2019-12-15] MEDS: lactose-reduced food (Ensure High Protein) 237ml bottle PO SCH (18:00)
[2019-12-15 19:30] VITALS: BP 101/61
[2019-12-15 23:00] VITALS: BP 101/61
[2019-12-16 06:00] VITALS: BP 89/57
--- NOTE | 2019-12-16 06:33 | NUR ---
Problems reprioritized. Patient report given, questions answered & plan of care reviewed with LETICIA. Addendum: 12/16/19 at 0633 by Floyd Mcclure RN Amended: Links added.
--- NOTE | 2019-12-16 06:39 | NUR ---
Patient in room ORTHO 4007. I have received report from CASEY Alvarenga and had the opportunity to ask questions and assume patient care.
[2019-12-16] MEDS: enoxaparin 40mg/0.4ml syringe SQ SCH (07:59)
[2019-12-16] MEDS: CefTRIAXone 2gm/D5W 50ml 50 ML IV SCH (07:59)
[2019-12-16] MEDS: oseltamivir phos 75mg capsule PO SCH ×2 (08:00→20:35)
[2019-12-16] MEDS: K and/or MAG REPLACEMENT MC SCH ×2 (08:00→20:00)
[2019-12-16] MEDS: lactose-reduced food (Ensure High Protein) 237ml bottle PO SCH ×3 (08:34→18:00)
[2019-12-16] MEDS: ipratropium/albuterol 3ml nebule NEB SCH ×2 (09:47→15:00)
[2019-12-16 10:00] VITALS: BP 79/49
[2019-12-16] MEDS ORDERED: UNABLE TO OBTAIN (10:12)
--- NOTE | 2019-12-16 15:22 | NUR ---
Initial: Pt admit w/ sepsis, PNA, positive for flu, and hypothyroidism per MD. Pt significant psychiatric hx in ED overflow since 10/27/2019 per RN and pt is AOx2 agitated. Pt PO remains poor 0% but drank 100% ensure high protein twice since ordered. Not meeting nutrition needs given dx. RD visited pt at bedside and pt stated no wt loss hx, trouble chewing or swallowing, and declines any food preferences at this time. Pt is not appropriate for written/verbal high protein ed at this time. Current BMI not accurate as current ht is incorrect pt 68" and initial wt pt stated s/p bed scale wt 55.7kg; new BMI 18.7. Pt is thin but likely baseline wt. At this time pt has mild weakness, no visible signs of severe muscle/fat wasting, and reports no wt/appetite loss. Does not meet minimum malnutrition criteria at this time. No BM ye this admit. Will continue to monitor for additional protein/kcal needs and malnutrition criteria this admit pending further PO hx. Rec: 1. continue regular diet; encourage PO 2. ensure high protein TIDWM per MD 3. bowel care as needed 4. consider appetite stimulant if poor PO persists per MD approval 5. weekly wts Addendum: 12/16/19 at [address] Amended: Links added.
[2019-12-16] MEDS ORDERED: QUEtiapine 25mg tablet PO PRN (16:50)
[2019-12-16 17:58] VITALS: BP 98/62
--- NOTE | 2019-12-16 18:27 | NUR ---
Problems reprioritized. Patient report given, questions answered & plan of care reviewed with CASEY Romano.
[2019-12-16] MEDS: cloNIDine 0.1 mg tablet PO SCH (20:00)
[2019-12-16] MEDS ORDERED: oxybutynin 5mg per 5ml oral solution PO SCH (20:00)
[2019-12-16] MEDS: risperiDONE 0.5mg tablet PO SCH (20:35)
[2019-12-16] MEDS ORDERED: oxybutynin 5mg tablet PO ONE (20:50)
[2019-12-16 22:00] VITALS: BP 102/63
[2019-12-17] MEDS: ipratropium/albuterol 3ml nebule NEB SCH ×4 (00:33→20:15)
[2019-12-17] MEDS: cloNIDine 0.1 mg tablet PO SCH ×4 (02:00→20:00)
[2019-12-17 06:00] VITALS: BP 98/63
[2019-12-17 06:18] LABS: BASOPHILS % (AUTO) 0.6 % (0-1); EOSINOPHILS # (AUTO) 0.3 X10'3 (0-0.9); EOSINOPHILS % (AUTO) 7.3 % (0-6); HEMATOCRIT 41.3 % (42.0-52.0); HEMOGLOBIN 14.1 g/dl (14.0-17.9); LYMPHOCYTES # (AUTO) 1.2 X10'3 (1.1-4.8); LYMPHOCYTES % (AUTO) 31.3 % (21-51); MEAN CORPUSCULAR HEMOGLOBIN 31.3 PG (27.0-31.0); MEAN CORPUSCULAR HGB CONC 34.2 g/dL (33.0-36.5); MEAN CORPUSCULAR VOLUME 91.4 FL (78-98); MEAN PLATELET VOLUME 9.1 FL (7.4-10.4); MONOCYTES # (AUTO) 0.4 X10'3 (0-0.9); MONOCYTES % (AUTO) 11.3 % (2-12); NEUTROPHILS # (AUTO) 1.9 X10'3 (1.8-7.7); NEUTROPHILS % (AUTO) 49.5 % (42-75); PLATELET COUNT 127 X10'3 (140-440); RED BLOOD COUNT 4.52 X10'6 (4.70-6.10); RED CELL DISTRIBUTION WIDTH 16.4 % (11.5-14.5); WHITE BLOOD COUNT 3.8 X10'3 (4.5-11.0)
[2019-12-17 06:33] LABS: ANION GAP 11 (8-16); BLOOD UREA NITROGEN 46 MG/DL (7-18); BUN/CREATININE RATIO 39.3 (5.4-32.0); CALCIUM 8.2 MG/DL (8.5-10.1); CHLORIDE 108 MMOL/L (99-107); CREATININE 1.17 MG/DL (0.60-1.10); GLUCOSE 80 MG/DL (70-104); MAGNESIUM 1.9 MG/DL (1.5-2.4); POTASSIUM 3.3 MMOL/L (3.5-5.1); SODIUM 142 MMOL/L (135-145); TOTAL CARBON DIOXIDE 23.5 MMOL/L (24-32); eGFR 60 ML/MIN
[2019-12-17] MEDS: K and/or MAG REPLACEMENT MC SCH ×2 (08:00→20:00)
[2019-12-17] MEDS: lactose-reduced food (Ensure High Protein) 237ml bottle PO SCH ×3 (08:00→20:00)
[2019-12-17] MEDS: oxybutynin 5mg tablet PO SCH ×2 (09:53→20:37)
[2019-12-17] MEDS: oseltamivir phos 75mg capsule PO SCH ×2 (09:53→20:37)
[2019-12-17] MEDS: levoTHYROXINE 75mcg tablet PO SCH (09:55)
[2019-12-17] MEDS: risperiDONE 0.5mg tablet PO SCH ×2 (09:55→20:37)
[2019-12-17] MEDS: duloxetine 20mg capsule.DR PO SCH (09:56)
[2019-12-17 10:00] VITALS: BP 85/57
[2019-12-17] MEDS: CefTRIAXone 2gm/D5W 50ml 50 ML IV SCH (13:45)
--- NOTE | 2019-12-17 15:00 | NUR ---
Patient has been calm and polite with me this shift. Quiet spoken. I asked permission to access IV, assess, etc. If "told" patient becomes excessively anxious and appears angry.
[2019-12-17 18:00] VITALS: BP 88/58
--- NOTE | 2019-12-17 18:45 | NUR ---
Patient in room ORTHO 4007. I have received report from CASEY PEREZ and had the opportunity to ask questions and assume patient care.
[2019-12-17 22:00] VITALS: BP 87/54
[2019-12-18] MEDS: cloNIDine 0.1 mg tablet PO SCH ×4 (02:00→20:00)
[2019-12-18 06:03] LABS: ANION GAP 10 (8-16); BLOOD UREA NITROGEN 46 MG/DL (7-18); BUN/CREATININE RATIO 36.5 (5.4-32.0); CALCIUM 8.6 MG/DL (8.5-10.1); CHLORIDE 107 MMOL/L (99-107); CREATININE 1.26 MG/DL (0.60-1.10); GLUCOSE 91 MG/DL (70-104); MAGNESIUM 1.9 MG/DL (1.5-2.4); POTASSIUM 3.7 MMOL/L (3.5-5.1); SODIUM 142 MMOL/L (135-145); TOTAL CARBON DIOXIDE 25.1 MMOL/L (24-32); eGFR 55 ML/MIN
[2019-12-18 06:09] LABS: BASOPHILS % (AUTO) 0.5 % (0-1); EOSINOPHILS # (AUTO) 0.4 X10'3 (0-0.9); EOSINOPHILS % (AUTO) 8.9 % (0-6); HEMATOCRIT 39.5 % (42.0-52.0); HEMOGLOBIN 13.4 g/dl (14.0-17.9); LYMPHOCYTES # (AUTO) 1.5 X10'3 (1.1-4.8); LYMPHOCYTES % (AUTO) 35.9 % (21-51); MEAN CORPUSCULAR HEMOGLOBIN 31.2 PG (27.0-31.0); MEAN CORPUSCULAR HGB CONC 33.9 g/dL (33.0-36.5); MEAN CORPUSCULAR VOLUME 92.2 FL (78-98); MEAN PLATELET VOLUME 9.1 FL (7.4-10.4); MONOCYTES # (AUTO) 0.4 X10'3 (0-0.9); MONOCYTES % (AUTO) 9.7 % (2-12); NEUTROPHILS # (AUTO) 1.9 X10'3 (1.8-7.7); PLATELET COUNT 124 X10'3 (140-440); RED BLOOD COUNT 4.29 X10'6 (4.70-6.10); WHITE BLOOD COUNT 4.2 X10'3 (4.5-11.0)
[2019-12-18 06:10] VITALS: BP 90/59
--- NOTE | 2019-12-18 06:20 | NUR ---
Problems reprioritized. Patient report given, questions answered & plan of care reviewed with CASEY Bloom.
--- NOTE | 2019-12-18 06:23 | NUR ---
Patient in room ORTHO 4007. I have received report from Jacquelin PEÑA and had the opportunity to ask questions and assume patient care.
[2019-12-18] MEDS: CefTRIAXone 2gm/D5W 50ml 50 ML IV SCH (07:44)
[2019-12-18] MEDS: oxybutynin 5mg tablet PO SCH ×2 (07:47→20:08)
[2019-12-18] MEDS: oseltamivir phos 75mg capsule PO SCH ×2 (07:47→20:08)
[2019-12-18] MEDS: duloxetine 20mg capsule.DR PO SCH (07:47)
[2019-12-18] MEDS: risperiDONE 0.5mg tablet PO SCH ×2 (07:47→20:09)
[2019-12-18] MEDS: levoTHYROXINE 75mcg tablet PO SCH (07:47)
[2019-12-18] MEDS: enoxaparin 40mg/0.4ml syringe SQ SCH ×2 (07:48→08:00)
[2019-12-18] MEDS: lactose-reduced food (Ensure High Protein) 237ml bottle PO SCH ×3 (08:00→18:00)
[2019-12-18] MEDS: K and/or MAG REPLACEMENT MC SCH ×2 (08:00→20:00)
[2019-12-18] MEDS: ipratropium/albuterol 3ml nebule NEB SCH ×3 (09:33→20:02)
[2019-12-18 10:00] VITALS: BP 90/64
--- NOTE | 2019-12-18 10:35 | NUR ---
I let Dr. Hunter know that I held the patient clonidine for 90/60 bp
[2019-12-18 18:00] VITALS: BP 92/61
--- NOTE | 2019-12-18 18:34 | NUR ---
Problems reprioritized. Patient report given, questions answered & plan of care reviewed with Bridget PEÑA.
[2019-12-18 22:00] VITALS: BP 99/66
[2019-12-19] MEDS: cloNIDine 0.1 mg tablet PO SCH ×4 (02:00→20:00)
[2019-12-19 06:00] VITALS: BP 109/75
--- NOTE | 2019-12-19 06:05 | NUR ---
Patient in room ORTHO 4007. I have received report from RODOLFO PEÑA and had the opportunity to ask questions and assume patient care.
[2019-12-19 06:08] LABS: BASOPHILS % (AUTO) 0.3 % (0-1); EOSINOPHILS # (AUTO) 0.2 X10'3 (0-0.9); EOSINOPHILS % (AUTO) 3.7 % (0-6); HEMATOCRIT 40.6 % (42.0-52.0); HEMOGLOBIN 13.9 g/dl (14.0-17.9); LYMPHOCYTES # (AUTO) 1.1 X10'3 (1.1-4.8); LYMPHOCYTES % (AUTO) 18.6 % (21-51); MEAN CORPUSCULAR HEMOGLOBIN 31.4 PG (27.0-31.0); MEAN CORPUSCULAR HGB CONC 34.2 g/dL (33.0-36.5); MEAN CORPUSCULAR VOLUME 91.8 FL (78-98); MEAN PLATELET VOLUME 9.1 FL (7.4-10.4); MONOCYTES # (AUTO) 0.5 X10'3 (0-0.9); NEUTROPHILS # (AUTO) 4.2 X10'3 (1.8-7.7); NEUTROPHILS % (AUTO) 69.4 % (42-75); PLATELET COUNT 116 X10'3 (140-440); RED BLOOD COUNT 4.43 X10'6 (4.70-6.10); WHITE BLOOD COUNT 6.1 X10'3 (4.5-11.0)
[2019-12-19 06:09] LABS: ALBUMIN 3.1 G/DL (3.4-5.0); ANION GAP 9 (8-16); BLOOD UREA NITROGEN 41 MG/DL (7-18); BUN/CREATININE RATIO 35.7 (5.4-32.0); CALCIUM 8.8 MG/DL (8.5-10.1); CHLORIDE 108 MMOL/L (99-107); CREATININE 1.15 MG/DL (0.60-1.10); GLUCOSE 89 MG/DL (70-104); POTASSIUM 3.5 MMOL/L (3.5-5.1); SODIUM 144 MMOL/L (135-145); TOTAL CARBON DIOXIDE 26.7 MMOL/L (24-32); eGFR 61 ML/MIN
[2019-12-19] MEDS: K and/or MAG REPLACEMENT MC SCH ×2 (08:00→20:00)
[2019-12-19] MEDS: duloxetine 20mg capsule.DR PO SCH (08:16)
[2019-12-19] MEDS: CefTRIAXone 2gm/D5W 50ml 50 ML IV SCH (08:16)
[2019-12-19] MEDS: lactobacillus rhamnosus 10,000 MMU CELLS/CAPSULE PO SCH ×2 (08:16→20:00)
[2019-12-19] MEDS: oxybutynin 5mg tablet PO SCH ×2 (08:16→20:00)
[2019-12-19] MEDS: levoTHYROXINE 75mcg tablet PO SCH (08:17)
[2019-12-19] MEDS: risperiDONE 0.5mg tablet PO SCH ×2 (08:17→20:00)
[2019-12-19] MEDS: oseltamivir phos 75mg capsule PO SCH (08:17)
[2019-12-19] MEDS: lactose-reduced food (Ensure High Protein) 237ml bottle PO SCH (08:36)
[2019-12-19] MEDS: enoxaparin 40mg/0.4ml syringe SQ SCH (08:37)
[2019-12-19 08:44] VITALS: BP 101/72
[2019-12-19] MEDS: ipratropium/albuterol 3ml nebule NEB SCH ×2 (09:36→20:15)
[2019-12-19 10:00] VITALS: BP 89/58
--- NOTE | 2019-12-19 12:09 | NUR ---
Reassessment: Pt PO remains poor 0%/refusing meals but drinking 100% ensure high proteins TID. Pt seen by RD and reports liking ensures and thinks he is fine nutritionally if only drinks ensures TID. RD educated pt on importance of additional kcals/protein. Pt declines milkshakes for additional kcals but is agreeable to cottage cheese and orange juice TIDWM; dietary notified. MIMI d/w RN regarding change from ensure high protein to ensure enlive given higher protein/kcal content per MD approval. MIMI d/w RN regarding possibility for appetite stimulant given poor PO hx per MD approval. LB 12/17. Will continue to monitor. Rec: 1. continue regular diet; encourage PO; cottage cheese and orange juice TID 2. ensure high protein TIDWM; change to ensure enlive to better meet needs per MD approval 3. bowel care as needed 4. consider appetite stimulant if poor PO persists per MD approval 5. weekly wts Addendum: 12/19/19 at [address] Amended: Links added.
[2019-12-19] MEDS: lactose-reduced food (Ensure Enlive) - 237ml bottle PO SCH ×2 (13:00→20:00)
[2019-12-19 13:51] VITALS: BP 101/67
--- NOTE | 2019-12-19 17:57 | NUR ---
Student Medication Administration: For this medication-pass time frame, all medication were reviewed, dispensed, administered and documented per hospital policy by CLAUDIA CORNELL. Student documentation: I have reviewed and agree with all interventions, assessments performed and documented by CLAUDIA CORNELL.
[2019-12-19 18:00] VITALS: BP 117/77
--- NOTE | 2019-12-19 18:09 | NUR ---
Problems reprioritized. Patient report given, questions answered & plan of care reviewed with Billie PEÑA.
--- NOTE | 2019-12-19 18:15 | NUR ---
Unable to perform complete assessment, pt is very agitated and laying in chair. He has chosen not to return to his bed for the night and wants to stay in chair. Pt is unwilling to answer how we can help him or what is making him so agitated. Pt left alone and is doing better. Will continue to monitor and treat as ordered. Addendum: 12/20/19 at 0333 by Billie Banuelos RN Amended: Links added.
[2019-12-19 22:00] VITALS: BP 98/63
[2019-12-20] MEDS: cloNIDine 0.1 mg tablet PO SCH ×2 (02:00→08:00)
[2019-12-20 06:00] VITALS: BP 94/63
--- NOTE | 2019-12-20 06:15 | NUR ---
Patient in room ORTHO 4007. I have received report from JOSÉ MIGUEL PEÑA and had the opportunity to ask questions and assume patient care.
--- NOTE | 2019-12-20 06:33 | NUR ---
Problems reprioritized. Patient report given, questions answered & plan of care reviewed with Mona PEÑA. Addendum: 12/20/19 at 0634 by Billie Banuelos RN Amended: Links added.
[2019-12-20 07:26] LABS: BASOPHILS % (AUTO) 0.2 % (0-1); EOSINOPHILS # (AUTO) 0.2 X10'3 (0-0.9); EOSINOPHILS % (AUTO) 2.8 % (0-6); HEMATOCRIT 42.9 % (42.0-52.0); HEMOGLOBIN 14.3 g/dl (14.0-17.9); LYMPHOCYTES # (AUTO) 1.7 X10'3 (1.1-4.8); LYMPHOCYTES % (AUTO) 27.1 % (21-51); MEAN CORPUSCULAR HEMOGLOBIN 30.7 PG (27.0-31.0); MEAN CORPUSCULAR HGB CONC 33.4 g/dL (33.0-36.5); MEAN CORPUSCULAR VOLUME 91.9 FL (78-98); MEAN PLATELET VOLUME 9.4 FL (7.4-10.4); MONOCYTES # (AUTO) 0.6 X10'3 (0-0.9); MONOCYTES % (AUTO) 9.7 % (2-12); NEUTROPHILS # (AUTO) 3.7 X10'3 (1.8-7.7); NEUTROPHILS % (AUTO) 60.2 % (42-75); PLATELET COUNT 120 X10'3 (140-440); RED BLOOD COUNT 4.67 X10'6 (4.70-6.10); RED CELL DISTRIBUTION WIDTH 16.4 % (11.5-14.5); WHITE BLOOD COUNT 6.1 X10'3 (4.5-11.0)
[2019-12-20 07:39] LABS: ALBUMIN 3.4 G/DL (3.4-5.0); ANION GAP 11 (8-16); BLOOD UREA NITROGEN 41 MG/DL (7-18); BUN/CREATININE RATIO 32.5 (5.4-32.0); CALCIUM 8.9 MG/DL (8.5-10.1); CHLORIDE 110 MMOL/L (99-107); CREATININE 1.26 MG/DL (0.60-1.10); GLUCOSE 78 MG/DL (70-104); MAGNESIUM 2.2 MG/DL (1.5-2.4); POTASSIUM 3.3 MMOL/L (3.5-5.1); SODIUM 146 MMOL/L (135-145); TOTAL CARBON DIOXIDE 25.4 MMOL/L (24-32); eGFR 55 ML/MIN
[2019-12-20] MEDS ORDERED: potassium CL 10mEq/100ml bag 100 ML IV PRN (07:45)
[2019-12-20] MEDS ORDERED: potassium Cl 20 mEq SR tablet PO PRN (07:45)
[2019-12-20] MEDS: K and/or MAG REPLACEMENT MC SCH ×2 (08:00→20:00)
[2019-12-20] MEDS: potassium Cl 20 mEq SR tablet PO PRN ×3 (08:09→16:26)
[2019-12-20] MEDS: risperiDONE 0.5mg tablet PO SCH ×2 (08:10→21:04)
[2019-12-20] MEDS: lactobacillus rhamnosus 10,000 MMU CELLS/CAPSULE PO SCH ×2 (08:10→21:04)
[2019-12-20] MEDS: duloxetine 20mg capsule.DR PO SCH (08:10)
[2019-12-20] MEDS: oxybutynin 5mg tablet PO SCH ×2 (08:10→21:04)
[2019-12-20] MEDS: levoTHYROXINE 75mcg tablet PO SCH (08:10)
[2019-12-20] MEDS: CefTRIAXone 2gm/D5W 50ml 50 ML IV SCH (08:11)
[2019-12-20] MEDS: enoxaparin 40mg/0.4ml syringe SQ SCH (08:11)
[2019-12-20] MEDS: lactose-reduced food (Ensure Enlive) - 237ml bottle PO SCH ×3 (08:15→18:00)
[2019-12-20] MEDS: ipratropium/albuterol 3ml nebule NEB SCH ×3 (09:00→20:57)
[2019-12-20 10:00] VITALS: BP 88/55
--- NOTE | 2019-12-20 17:54 | NUR ---
Student documentation: I have reviewed and agree with all interventions, assessments performed and documented by CLAUDIA CORNELL. Student Medication Administration: For this medication-pass time frame, all medication were reviewed, dispensed, administered and documented per hospital policy by CLAUDIA CORNELL.
[2019-12-20 18:30] VITALS: BP 106/72
--- NOTE | 2019-12-20 18:46 | NUR ---
Problems reprioritized. Patient report given, questions answered & plan of care reviewed with BRIGIDA PEÑA.
--- NOTE | 2019-12-20 19:46 | NUR ---
Patient in room ORTHO 4007. I have received report from CASEY Hylton and had the opportunity to ask questions and assume patient care. Pt resting with eyes closed Addendum: 12/20/19 at 1947 by Eula Szymanski RN Amended: Links added.
[2019-12-20 22:15] VITALS: BP 94/66
--- NOTE | 2019-12-20 22:15 | NUR ---
Pt inc urine and stool. complete bed bath and skin care done. pt yi zimmerman, states "leave me alone", mumbles to self. Addendum: 12/20/19 at 2301 by Eula Szymanski RN Amended: Links added.
--- NOTE | 2019-12-20 22:15 | NUR ---
pt refused any oral care. Addendum: 12/20/19 at 2301 by Eula Szymanski RN Amended: Links added.
--- NOTE | 2019-12-21 05:53 | NUR ---
INC LIQ TO SOFT BROWN STOOL SEVERAL TIMES THROUGHOUT NIGHT, PT HAS STAYED IN BED ALL NIGHT. WARM BLANKET GIVEN. POC WITH PILLOWS. Addendum: 12/21/19 at 0554 by Eula Szymanski RN Amended: Links added.
[2019-12-21 06:00] VITALS: BP 99/57
--- NOTE | 2019-12-21 06:15 | NUR ---
Patient in room ORTHO 4007. I have received report from Miriam and had the opportunity to ask questions and assume patient care.
--- NOTE | 2019-12-21 06:21 | NUR ---
Problems reprioritized. Patient report given, questions answered & plan of care reviewed with CASEY VARMA. Addendum: 12/21/19 at 0621 by Eula Szymanski RN Amended: Links added.
[2019-12-21] MEDS: K and/or MAG REPLACEMENT MC SCH ×2 (08:00→19:46)
[2019-12-21] MEDS: lactobacillus rhamnosus 10,000 MMU CELLS/CAPSULE PO SCH ×2 (08:16→19:46)
[2019-12-21] MEDS: levoTHYROXINE 75mcg tablet PO SCH (08:16)
[2019-12-21] MEDS: risperiDONE 0.5mg tablet PO SCH ×2 (08:16→19:46)
[2019-12-21] MEDS: oxybutynin 5mg tablet PO SCH ×2 (08:16→19:46)
[2019-12-21] MEDS: duloxetine 20mg capsule.DR PO SCH (08:16)
[2019-12-21] MEDS: potassium Cl 20 mEq SR tablet PO PRN (08:19)
[2019-12-21] MEDS: CefTRIAXone 2gm/D5W 50ml 50 ML IV SCH (08:24)
[2019-12-21] MEDS: lactose-reduced food (Ensure Enlive) - 237ml bottle PO SCH ×3 (08:33→18:00)
[2019-12-21] MEDS: enoxaparin 40mg/0.4ml syringe SQ SCH (08:35)
[2019-12-21] MEDS: ipratropium/albuterol 3ml nebule NEB SCH ×3 (08:55→20:07)
[2019-12-21 10:00] VITALS: BP 96/57
[2019-12-21 18:00] VITALS: BP 99/63
--- NOTE | 2019-12-21 18:15 | NUR ---
Problems reprioritized. Patient report given, questions answered & plan of care reviewed with Merle Briscoe
--- NOTE | 2019-12-21 18:23 | NUR ---
Patient in room ORTHO 4007. I have received report from CASEY Mims and had the opportunity to ask questions and assume patient care.
[2019-12-21 22:00] VITALS: BP 96/64
[2019-12-22 06:00] VITALS: BP 100/67
--- NOTE | 2019-12-22 06:18 | NUR ---
Problems reprioritized. Patient report given, questions answered & plan of care reviewed with CASEY Gagnon.
--- NOTE | 2019-12-22 06:31 | NUR ---
Patient in room ORTHO 4007. I have received report from Merle PEÑA and had the opportunity to ask questions and assume patient care.
--- NOTE | 2019-12-22 06:42 | NUR ---
Received in report that it is okay per MD to not have new labs ordered
[2019-12-22] MEDS: lactobacillus rhamnosus 10,000 MMU CELLS/CAPSULE PO SCH ×2 (07:46→20:00)
[2019-12-22] MEDS: levoTHYROXINE 75mcg tablet PO SCH (07:46)
[2019-12-22] MEDS: duloxetine 20mg capsule.DR PO SCH (07:46)
[2019-12-22] MEDS: risperiDONE 0.5mg tablet PO SCH ×2 (07:46→20:31)
[2019-12-22] MEDS: oxybutynin 5mg tablet PO SCH ×2 (07:46→20:00)
[2019-12-22] MEDS: enoxaparin 40mg/0.4ml syringe SQ SCH (07:47)
[2019-12-22] MEDS: K and/or MAG REPLACEMENT MC SCH ×2 (08:00→20:00)
[2019-12-22] MEDS: ipratropium/albuterol 3ml nebule NEB SCH ×3 (08:03→20:18)
[2019-12-22] MEDS: lactose-reduced food (Ensure Enlive) - 237ml bottle PO SCH ×3 (08:17→18:00)
[2019-12-22 10:00] VITALS: BP 107/70
--- NOTE | 2019-12-22 16:06 | NUR ---
dejon NIX PAGER ID: [phone] MESSAGE: Chelsi Mccormick. RE Megha Luo. 4007. FYI that patient pulled out IV and is refusing further IV attempts at this time
--- NOTE | 2019-12-22 17:56 | NUR ---
Reassessment: Pt PO 0%/refusing meals since admit 10 days only drinking some ensures now not meet needs. MIMI [employer]Altheos regarding nutrition support needs given 10 day no PO and may benefit from appetite stimulant as well. EN recs below in case nutrition support. LBM 12/20. RN reports pt declines assistance w/ meals and is able to swallow pills without difficulty. Pt is being evaluated by psychiatry given hx homeless w/ dementia DX. Given poor PO hx at least 10 days pt meets minimum malnutrition criteria; MD notified. Pt not appropriate for malnutrition ed given DX and ALOC AOx2. Will continue to monitor. Rec: 1. continue regular diet; encourage PO; cottage cheese and orange juice TID 2. ensure enlive TIDWM 3. bowel care as needed 4. consider appetite stimulant per MD approval 5. weekly wts 6. IF NGTF; recommend Jevity 1.2 at 65ml/hr goal Addendum: 12/22/19 at [address] Amended: Links added.
--- NOTE | 2019-12-22 18:17 | NUR ---
Problems reprioritized. Patient report given, questions answered & plan of care reviewed with Louisa PEÑA.
--- NOTE | 2019-12-22 18:29 | NUR ---
Patient in room ORTHO 4007. I have received report from REED and had the opportunity to ask questions and assume patient care.
[2019-12-22 19:00] VITALS: BP 103/75
[2019-12-22] MEDS: potassium Cl 20 mEq SR tablet PO PRN (20:41)
[2019-12-22 22:00] VITALS: BP 122/81
[2019-12-23 06:00] VITALS: BP 117/76
--- NOTE | 2019-12-23 06:36 | NUR ---
Problems reprioritized. Patient report given, questions answered & plan of care reviewed with CHRIS.
[2019-12-23] MEDS: oxybutynin 5mg tablet PO SCH ×2 (08:00→20:10)
[2019-12-23] MEDS: K and/or MAG REPLACEMENT MC SCH ×2 (08:00→20:00)
[2019-12-23] MEDS: lactobacillus rhamnosus 10,000 MMU CELLS/CAPSULE PO SCH ×2 (08:00→20:10)
[2019-12-23] MEDS: lactose-reduced food (Ensure Enlive) - 237ml bottle PO SCH ×3 (08:00→18:30)
[2019-12-23] MEDS: risperiDONE 0.5mg tablet PO SCH ×2 (08:00→20:13)
[2019-12-23] MEDS: ipratropium/albuterol 3ml nebule NEB SCH ×3 (09:18→19:49)
[2019-12-23 10:00] VITALS: BP 111/66
[2019-12-23] MEDS: duloxetine 20mg capsule.DR PO SCH (17:33)
[2019-12-23] MEDS: enoxaparin 40mg/0.4ml syringe SQ SCH (17:33)
[2019-12-23] MEDS: levoTHYROXINE 75mcg tablet PO SCH (17:33)
[2019-12-23 18:04] VITALS: BP 108/69
[2019-12-23 22:00] VITALS: BP 124/67
[2019-12-24 06:00] VITALS: BP 125/81
[2019-12-24] MEDS: ipratropium/albuterol 3ml nebule NEB SCH ×3 (07:33→20:04)
[2019-12-24] MEDS: K and/or MAG REPLACEMENT MC SCH ×2 (08:00→20:00)
[2019-12-24] MEDS: duloxetine 20mg capsule.DR PO SCH (08:34)
[2019-12-24] MEDS: lactobacillus rhamnosus 10,000 MMU CELLS/CAPSULE PO SCH ×2 (08:34→19:38)
[2019-12-24] MEDS: risperiDONE 0.5mg tablet PO SCH ×2 (08:34→19:38)
[2019-12-24] MEDS: oxybutynin 5mg tablet PO SCH ×2 (08:34→19:38)
[2019-12-24] MEDS: levoTHYROXINE 75mcg tablet PO SCH (08:34)
[2019-12-24] MEDS: enoxaparin 40mg/0.4ml syringe SQ SCH (08:35)
[2019-12-24] MEDS: lactose-reduced food (Ensure Enlive) - 237ml bottle PO SCH ×3 (08:54→18:00)
[2019-12-24 10:00] VITALS: BP 108/74
--- NOTE | 2019-12-24 12:06 | NUR ---
SPEECH THERAPIST HERE, EVAL FOR ASPIRATION
--- NOTE | 2019-12-24 16:42 | NUR ---
F/u: RN concerned pt may be aspirating ONS; MD and INVENTORY CONTROL ASSISTANT were notified. Pt placed on pureed/NTL diet per INVENTORY CONTROL ASSISTANT recs today. More ALOC AOx1 per EMR. MIMI mcghee/w RN regarding d/c of ONS since pt can no longer receive on nectar thick liquids. Pt has had little to no nutrition 12 days now since admit not meeting needs. MIMI mcghee/galdino RN and paged MD regarding pt would likely benefit from PEG placement to meet long-term nutrition needs since pending psychiatry eval, dementia DX, homeless hx, and trying to find LTAC for placement per MD note. Pending MD return call at this time. Addendum: 12/24/19 at [address] Amended: Links added.
[2019-12-24 18:00] VITALS: BP 102/73
--- NOTE | 2019-12-24 18:14 | NUR ---
REPORT TO SYL PEÑA
--- NOTE | 2019-12-24 18:30 | NUR ---
Patient in room ORTHO 4007. I have received report from CASEY PEREZ and had the opportunity to ask questions and assume patient care.
[2019-12-24 21:43] VITALS: BP 108/79
[2019-12-25 06:00] VITALS: BP 110/68
--- NOTE | 2019-12-25 06:22 | NUR ---
Problems reprioritized. Patient report given, questions answered & plan of care reviewed with CASEY PEREZ.
[2019-12-25] MEDS: K and/or MAG REPLACEMENT MC SCH ×2 (08:00→20:00)
[2019-12-25] MEDS: oxybutynin 5mg tablet PO SCH ×2 (09:08→20:00)
[2019-12-25] MEDS: duloxetine 20mg capsule.DR PO SCH (09:08)
[2019-12-25] MEDS: lactobacillus rhamnosus 10,000 MMU CELLS/CAPSULE PO SCH ×2 (09:08→20:00)
[2019-12-25] MEDS: levoTHYROXINE 75mcg tablet PO SCH (09:08)
[2019-12-25] MEDS: risperiDONE 0.5mg tablet PO SCH ×2 (09:09→20:00)
[2019-12-25] MEDS: enoxaparin 40mg/0.4ml syringe SQ SCH (09:09)
[2019-12-25] MEDS: lactose-reduced food (Ensure Enlive) - 237ml bottle PO SCH ×3 (09:09→18:00)
[2019-12-25] MEDS: ipratropium/albuterol 3ml nebule NEB SCH ×3 (09:34→20:48)
[2019-12-25 10:00] VITALS: BP 100/62
--- NOTE | 2019-12-25 15:10 | NUR ---
F/u: Pt still refusing any nutrition day 13 poor PO. MIMI [email or web address] new covering hospitalist today regarding pt need for alternative nutrition and likely PEG needs for long-term nutrition given DX. notified RD that appetite stimulant has been added in hopes of improving PO meals. Pt ensure enlive still active on EMR and pt refused at breakfast and lunch today. MIMI notified dietary to hold ONS given NTL recs per LINE SERVICE ATTENDANT; MIMI also reiterated to RN since pt not safe to have thin liquid ONS at this time. Addendum: 12/25/19 at [address] Amended: Links added.
--- NOTE | 2019-12-25 16:54 | NUR ---
Patient continues to refuse to participate in his care, refuses to eat, yells at staff for attempting to feed him.
[2019-12-25 17:55] LABS: ALBUMIN 3.1 G/DL (3.4-5.0); ANION GAP 13 (8-16); BLOOD UREA NITROGEN 46 MG/DL (7-18); BUN/CREATININE RATIO 33.6 (5.4-32.0); CALCIUM 9.9 MG/DL (8.5-10.1); CREATININE 1.37 MG/DL (0.60-1.10); GLUCOSE 107 MG/DL (70-104); POTASSIUM 3.1 MMOL/L (3.5-5.1); TOTAL CARBON DIOXIDE 23.8 MMOL/L (24-32); eGFR 50 ML/MIN
[2019-12-25 17:59] LABS: SODIUM 160 MMOL/L (135-145)
[2019-12-25 18:00] VITALS: BP 105/66
[2019-12-25 18:00] LABS: CHLORIDE 123 MMOL/L (99-107)
[2019-12-25] MEDS ORDERED: K and/or MAG REPLACEMENT MC SCH (19:00)
[2019-12-25] MEDS ORDERED: magnesium 4gm in 100ml NS 100 ML IV PRN (19:00)
[2019-12-25] MEDS ORDERED: potassium Cl 20 mEq SR tablet PO PRN (19:00)
[2019-12-25] MEDS: dextrose 5%-water 1,000 ML IV SCH (19:26)
[2019-12-25 22:00] VITALS: BP 130/91
[2019-12-25] MEDS: potassium CL 10mEq/100ml bag 100 ML IV PRN ×2 (22:09→23:12)
[2019-12-26] MEDS: potassium CL 10mEq/100ml bag 100 ML IV PRN ×3 (01:00→22:55)
[2019-12-26] MEDS: dextrose 5%-water 1,000 ML IV SCH ×2 (04:44→14:39)
[2019-12-26 06:08] VITALS: BP 90/51
--- NOTE | 2019-12-26 06:30 | NUR ---
Patient in room ORTHO 4007. I have received report from Bridget PEÑA and had the opportunity to ask questions and assume patient care.
[2019-12-26 06:53] LABS: ANION GAP 9 (8-16); BLOOD UREA NITROGEN 45 MG/DL (7-18); BUN/CREATININE RATIO 26.9 (5.4-32.0); CALCIUM 9.7 MG/DL (8.5-10.1); CHLORIDE 119 MMOL/L (99-107); CREATININE 1.67 MG/DL (0.60-1.10); MAGNESIUM 2.4 MG/DL (1.5-2.4); POTASSIUM 3.8 MMOL/L (3.5-5.1); TOTAL CARBON DIOXIDE 27.9 MMOL/L (24-32); eGFR 39 ML/MIN
[2019-12-26 06:54] LABS: GLUCOSE 120 MG/DL (70-104)
[2019-12-26 06:56] LABS: SODIUM 156 MMOL/L (135-145)
[2019-12-26] MEDS: levoTHYROXINE 75mcg tablet PO SCH (07:00)
[2019-12-26] MEDS: ipratropium/albuterol 3ml nebule NEB SCH ×3 (07:09→21:00)
[2019-12-26] MEDS: lactobacillus rhamnosus 10,000 MMU CELLS/CAPSULE PO SCH ×2 (08:00→20:00)
[2019-12-26] MEDS: lactose-reduced food (Ensure Enlive) - 237ml bottle PO SCH ×2 (08:00→13:19)
[2019-12-26] MEDS: K and/or MAG REPLACEMENT MC SCH ×2 (08:00→20:49)
[2019-12-26] MEDS: risperiDONE 0.5mg tablet PO SCH (08:00)
[2019-12-26] MEDS: duloxetine 20mg capsule.DR PO SCH (08:00)
[2019-12-26] MEDS: enoxaparin 40mg/0.4ml syringe SQ SCH (08:00)
[2019-12-26] MEDS: oxybutynin 5mg tablet PO SCH (08:00)
--- NOTE | 2019-12-26 10:14 | NUR ---
I spoke with Jamie service station operator about patient not eating/drinking. I will go over everything with Dr. Godoy when she gets here.
--- NOTE | 2019-12-26 10:30 | NUR ---
Student documentation: I have reviewed all interventions, assessments performed and documented by Arabella [facility]. Student Medication Administration: For this medication-pass time frame, all medication were reviewed, dispensed, administered and documented per hospital policy by Arabellaastrid ROLAND [facility].
--- NOTE | 2019-12-26 12:50 | NUR ---
Patient in room ORTHO 4007. I have received report from primary nurse Merle and had the opportunity to ask questions. -Flroencia MCCRARY
[2019-12-26 13:15] VITALS: BP 89/59
--- NOTE | 2019-12-26 14:04 | NUR ---
Reassessment: MIMI d/w regarding recommendation for nutrition support given 14 days not meeting nutrition needs as pt is refusing all PO meals/drinks. Chemistry panel taken 3/4 PM first since 12/20, resulting Na 160; Na down to 156 today receiving dextrose. MD declines appetite stimulant and alternative nutrition at this time and states to give pt whatever pt would like for meals. Pt refusing all PO and has no preferences; options limited given pt placed on pureed/nectar thick liquid diet per RESOURCE PROTECTION SPECIALIST recs. Pt remains ALOC but did agree to try thickened magic cup shakes TIDWM in hopes to provide some PO kcals/protein/fluids. Pt currently meets ASPEN guidelines for nutrition support. EN recs below IF to start TF. Will continue to monitor. Rec: 1. continue pureed/NTL diet per RESOURCE PROTECTION SPECIALIST recs; encourage PO 2. thickened magic cup shakes TIDWM 3. routine bowel care 4. appetite stimulant per MD approval 5. daily wts 6. IF TF; recommend Jevity 1.2 at 65ml/hr goal Addendum: 12/26/19 at [address] Amended: Links added.
--- NOTE | 2019-12-26 17:46 | NUR ---
Reviewed student's documentation. Addendum: 12/26/19 at 1747 by Anabella Hyman RN Amended: Links added.
[2019-12-26 17:50] VITALS: BP 107/64
--- NOTE | 2019-12-26 17:54 | NUR ---
Problems reprioritized. Patient report given to primary nurse Merle, questions answered & plan of care reviewed with Anabella Hyman, Clinical instructor . -Florencia MCCRARY
[2019-12-26 18:00] VITALS: BP 85/57
--- NOTE | 2019-12-26 18:00 | NUR ---
Patient in room ORTHO 4007. I have received report from CASEY Bloom and had the opportunity to ask questions and assume patient care.
--- NOTE | 2019-12-26 18:25 | NUR ---
Problems reprioritized. Patient report given, questions answered & plan of care reviewed with Julia PEÑA.
[2019-12-26 20:10] LABS: BASOPHILS % (AUTO) 0.2 % (0-1); EOSINOPHILS # (AUTO) 0.2 X10'3 (0-0.9); EOSINOPHILS % (AUTO) 1.4 % (0-6); HEMATOCRIT 43.8 % (42.0-52.0); HEMOGLOBIN 14.3 g/dl (14.0-17.9); LYMPHOCYTES # (AUTO) 1.8 X10'3 (1.1-4.8); LYMPHOCYTES % (AUTO) 14.3 % (21-51); MEAN CORPUSCULAR HEMOGLOBIN 30.1 PG (27.0-31.0); MEAN CORPUSCULAR HGB CONC 32.7 g/dL (33.0-36.5); MEAN CORPUSCULAR VOLUME 92.1 FL (78-98); MEAN PLATELET VOLUME 9.3 FL (7.4-10.4); MONOCYTES # (AUTO) 0.9 X10'3 (0-0.9); MONOCYTES % (AUTO) 6.9 % (2-12); NEUTROPHILS # (AUTO) 9.9 X10'3 (1.8-7.7); NEUTROPHILS % (AUTO) 77.2 % (42-75); PLATELET COUNT 197 X10'3 (140-440); RED BLOOD COUNT 4.76 X10'6 (4.70-6.10); WHITE BLOOD COUNT 12.8 X10'3 (4.5-11.0)
[2019-12-26 20:18] LABS: ALBUMIN 2.6 G/DL (3.4-5.0); ANION GAP 7 (8-16); BLOOD UREA NITROGEN 42 MG/DL (7-18); BUN/CREATININE RATIO 28.4 (5.4-32.0); CALCIUM 8.9 MG/DL (8.5-10.1); CHLORIDE 117 MMOL/L (99-107); CREATININE 1.48 MG/DL (0.60-1.10); GLUCOSE 119 MG/DL (70-104); SODIUM 151 MMOL/L (135-145); TOTAL CARBON DIOXIDE 26.6 MMOL/L (24-32); eGFR 45 ML/MIN
[2019-12-26 22:00] VITALS: BP 96/55
[2019-12-27] MEDS: potassium CL 10mEq/100ml bag 100 ML IV PRN ×6 (01:10→14:45)
[2019-12-27] MEDS: dextrose 5%-water 1,000 ML IV SCH ×3 (03:15→23:39)
[2019-12-27 06:00] VITALS: BP 90/50
--- NOTE | 2019-12-27 06:34 | NUR ---
Patient in room ORTHO 4007. I have received report from CASEY Marcos and had the opportunity to ask questions and assume patient care.
[2019-12-27 07:03] LABS: ALBUMIN 2.5 G/DL (3.4-5.0); ANION GAP 8 (8-16); BLOOD UREA NITROGEN 38 MG/DL (7-18); BUN/CREATININE RATIO 28.4 (5.4-32.0); CALCIUM 8.6 MG/DL (8.5-10.1); CHLORIDE 115 MMOL/L (99-107); CREATININE 1.34 MG/DL (0.60-1.10); GLUCOSE 100 MG/DL (70-104); POTASSIUM 3.4 MMOL/L (3.5-5.1); SODIUM 146 MMOL/L (135-145); TOTAL CARBON DIOXIDE 22.8 MMOL/L (24-32); eGFR 51 ML/MIN
[2019-12-27] MEDS: ipratropium/albuterol 3ml nebule NEB SCH ×2 (08:03→15:00)
[2019-12-27] MEDS: lactobacillus rhamnosus 10,000 MMU CELLS/CAPSULE PO SCH ×2 (08:33→21:12)
[2019-12-27] MEDS: duloxetine 20mg capsule.DR PO SCH (08:33)
[2019-12-27] MEDS: enoxaparin 40mg/0.4ml syringe SQ SCH (08:34)
[2019-12-27] MEDS: K and/or MAG REPLACEMENT MC SCH ×2 (08:34→21:13)
[2019-12-27] MEDS: levoTHYROXINE 75mcg tablet PO SCH (08:34)
[2019-12-27 10:00] VITALS: BP 101/69
--- NOTE | 2019-12-27 15:13 | NUR ---
bladder scan reveals 281 ml in bladder. Pt states he is not uncomfortable with no urge to void. Had a large incontinent liquid bm which could have included urine.
[2019-12-27 18:00] VITALS: BP 106/62
--- NOTE | 2019-12-27 18:00 | NUR ---
Patient in room ORTHO 4007. I have received report from CASEY Marcos and had the opportunity to ask questions and assume patient care.
[2019-12-27] MEDS: potassium chloride 10mEq ER tablet PO SCH (21:12)
[2019-12-27] MEDS: tamsulosin 0.4mg capsule PO SCH (21:12)
--- NOTE | 2019-12-28 06:00 | NUR ---
Problems reprioritized. Patient report given, questions answered & plan of care reviewed with CASEY Bloom.
[2019-12-28 06:10] VITALS: BP 97/59
[2019-12-28 06:16] LABS: ALBUMIN 2.2 G/DL (3.4-5.0); ANION GAP 8 (8-16); BLOOD UREA NITROGEN 35 MG/DL (7-18); BUN/CREATININE RATIO 28.5 (5.4-32.0); CALCIUM 8.4 MG/DL (8.5-10.1); CHLORIDE 113 MMOL/L (99-107); CREATININE 1.23 MG/DL (0.60-1.10); GLUCOSE 108 MG/DL (70-104); MAGNESIUM 2.1 MG/DL (1.5-2.4); SODIUM 143 MMOL/L (135-145); TOTAL CARBON DIOXIDE 22.4 MMOL/L (24-32); eGFR 56 ML/MIN
[2019-12-28 06:18] LABS: POTASSIUM 2.9 MMOL/L (3.5-5.1)
--- NOTE | 2019-12-28 06:30 | NUR ---
Patient in room ORTHO 4007. I have received report from Julia and had the opportunity to ask questions and assume patient care.
[2019-12-28] MEDS: CefTRIAXone 2gm/D5W 50ml 50 ML IV SCH (07:13)
[2019-12-28] MEDS: levoTHYROXINE 75mcg tablet PO SCH (07:14)
[2019-12-28] MEDS: lactobacillus rhamnosus 10,000 MMU CELLS/CAPSULE PO SCH ×2 (07:14→20:00)
[2019-12-28] MEDS: potassium Cl 20 mEq SR tablet PO PRN ×3 (07:14→17:45)
[2019-12-28] MEDS: enoxaparin 40mg/0.4ml syringe SQ SCH (07:15)
[2019-12-28] MEDS: K and/or MAG REPLACEMENT MC SCH ×2 (08:00→20:00)
[2019-12-28] MEDS: potassium chloride 10mEq ER tablet PO SCH ×2 (08:00→20:00)
[2019-12-28] MEDS: ipratropium/albuterol 3ml nebule NEB SCH ×3 (08:43→20:28)
[2019-12-28 09:28] LABS: BASOPHILS # (AUTO) 0.1 X10'3 (0-0.2); BASOPHILS % (AUTO) 0.8 % (0-1); EOSINOPHILS # (AUTO) 0.3 X10'3 (0-0.9); EOSINOPHILS % (AUTO) 3.6 % (0-6); HEMATOCRIT 38.5 % (42.0-52.0); HEMOGLOBIN 12.7 g/dl (14.0-17.9); LYMPHOCYTES # (AUTO) 1.3 X10'3 (1.1-4.8); LYMPHOCYTES % (AUTO) 15.7 % (21-51); MEAN CORPUSCULAR HEMOGLOBIN 30.4 PG (27.0-31.0); MEAN PLATELET VOLUME 9.5 FL (7.4-10.4); MONOCYTES # (AUTO) 0.6 X10'3 (0-0.9); MONOCYTES % (AUTO) 6.9 % (2-12); NEUTROPHILS # (AUTO) 6.2 X10'3 (1.8-7.7); PLATELET COUNT 193 X10'3 (140-440); RED BLOOD COUNT 4.19 X10'6 (4.70-6.10); RED CELL DISTRIBUTION WIDTH 15.6 % (11.5-14.5); WHITE BLOOD COUNT 8.5 X10'3 (4.5-11.0)
[2019-12-28 10:00] VITALS: BP 76/46
[2019-12-28 10:15] VITALS: BP 78/55
[2019-12-28] MEDS: dextrose 5%-water 1,000 ML IV SCH (14:52)
--- NOTE | 2019-12-28 18:41 | NUR ---
Problems reprioritized. Patient report given, questions answered & plan of care reviewed with Merle Briscoe
--- NOTE | 2019-12-28 18:42 | NUR ---
Patient in room ORTHO 4007. I have received report from Merle Shearer RN and had the opportunity to ask questions and assume patient care.
[2019-12-28] MEDS: tamsulosin 0.4mg capsule PO SCH (21:00)
[2019-12-28] MEDS ORDERED: potassium Cl 20 mEq SR tablet PO PRN (21:00)
[2019-12-28 22:00] VITALS: BP 82/44
--- NOTE | 2019-12-28 22:46 | NUR ---
Patient resistive to care including nutrition, medication, and Q2HR turns.
[2019-12-29] MEDS ORDERED: K and/or MAG REPLACEMENT MC SCH (03:00)
[2019-12-29 06:00] VITALS: BP 95/57
[2019-12-29 06:38] LABS: POTASSIUM 2.8 MMOL/L (3.5-5.1)
--- NOTE | 2019-12-29 06:57 | NUR ---
PAGER ID: [phone] MESSAGE: Patient Megha Luo in room 4007A has a critical K+ of 2.8. Patient has been refusing PO K+ during NOC shift. Day shift RN to attempt again during day with improvement on confusion. Ortho/Neuro Merle [phone]
--- NOTE | 2019-12-29 07:00 | NUR ---
Problems reprioritized. Patient report given, questions answered & plan of care reviewed with CASEY Valle.
[2019-12-29] MEDS: dextrose 5%-water 1,000 ML IV SCH ×2 (07:13→21:40)
[2019-12-29] MEDS: K and/or MAG REPLACEMENT MC SCH ×2 (08:00→20:00)
[2019-12-29] MEDS: ipratropium/albuterol 3ml nebule NEB SCH ×2 (08:39→21:00)
[2019-12-29] MEDS: lactobacillus rhamnosus 10,000 MMU CELLS/CAPSULE PO SCH (08:51)
[2019-12-29] MEDS: levoTHYROXINE 75mcg tablet PO SCH (08:51)
[2019-12-29] MEDS: CefTRIAXone 2gm/D5W 50ml 50 ML IV SCH (08:52)
[2019-12-29] MEDS: potassium chloride 10mEq ER tablet PO SCH ×2 (08:52→20:00)
[2019-12-29] MEDS: potassium Cl 20 mEq SR tablet PO PRN ×3 (08:52→22:25)
[2019-12-29] MEDS: enoxaparin 40mg/0.4ml syringe SQ SCH (08:53)
--- NOTE | 2019-12-29 09:10 | NUR ---
40meq K+ given po, pt was disagreeable with replacement at 0630.
[2019-12-29 10:00] VITALS: BP 89/49
[2019-12-29 12:38] LABS: BASOPHILS % (AUTO) 0.2 % (0-1); EOSINOPHILS # (AUTO) 0.2 X10'3 (0-0.9); EOSINOPHILS % (AUTO) 2.3 % (0-6); HEMATOCRIT 39.5 % (42.0-52.0); HEMOGLOBIN 13.4 g/dl (14.0-17.9); LYMPHOCYTES # (AUTO) 1.5 X10'3 (1.1-4.8); LYMPHOCYTES % (AUTO) 14.7 % (21-51); MEAN CORPUSCULAR HEMOGLOBIN 30.9 PG (27.0-31.0); MEAN CORPUSCULAR HGB CONC 33.8 g/dL (33.0-36.5); MEAN CORPUSCULAR VOLUME 91.3 FL (78-98); MEAN PLATELET VOLUME 10.3 FL (7.4-10.4); MONOCYTES % (AUTO) 10.1 % (2-12); NEUTROPHILS # (AUTO) 7.2 X10'3 (1.8-7.7); NEUTROPHILS % (AUTO) 72.7 % (42-75); PLATELET COUNT 202 X10'3 (140-440); RED BLOOD COUNT 4.33 X10'6 (4.70-6.10); RED CELL DISTRIBUTION WIDTH 15.5 % (11.5-14.5); WHITE BLOOD COUNT 9.9 X10'3 (4.5-11.0)
[2019-12-29 12:41] LABS: ALBUMIN 2.3 G/DL (3.4-5.0); ANION GAP 8 (8-16); BLOOD UREA NITROGEN 22 MG/DL (7-18); BUN/CREATININE RATIO 19.1 (5.4-32.0); CALCIUM 8.6 MG/DL (8.5-10.1); CHLORIDE 109 MMOL/L (99-107); CREATININE 1.15 MG/DL (0.60-1.10); GLUCOSE 108 MG/DL (70-104); SODIUM 138 MMOL/L (135-145); TOTAL CARBON DIOXIDE 21.4 MMOL/L (24-32); eGFR 61 ML/MIN
[2019-12-29 12:48] LABS: POTASSIUM 2.9 MMOL/L (3.5-5.1)
--- NOTE | 2019-12-29 13:56 | NUR ---
Reassessment: Pt continues to refuse almost all care and all meals/PO. Not meeting needs over 2 weeks at this time. LBM 3/7; liquid stool on c.diff isolation today. Per RN, likely secondary to electrolyte replacement and does not appear similar to c.diff; results pending. Mahendra 11 w/ no skin issues per WOC note. Pt would benefit from alternative nutrition at this time but would likely not accept NG and per MD note pt wants to remain comfortable. Receiving D5 at 70ml/hr; only 84g DEX/day and 286kcals/day; severely malnourished. Will continue to monitor. Rec: 1. continue pureed/NTL diet per TYPING OFFICE WORKER recs; encourage PO 2. thickened magic cup shakes TIDWM 3. routine bowel care 4. appetite stimulant per MD approval; inadequate intake over 2 weeks 5. daily wts 6. IF TF; recommend Jevity 1.2 at 65ml/hr goal 7. Monitor for changes in code status Addendum: 12/29/19 at [address] Amended: Links added. Addendum: 12/29/19 at [address] Mahendra consult: Pt continues to refuse almost all care and all meals/PO. Not meeting needs over 2 weeks at this time. LBM 3/7; liquid stool on c.diff isolation today. Per RN, likely secondary to electrolyte replacement and does not appear similar to c.diff; results pending. Mahendra 11 w/ no skin issues per WOC note. Pt would benefit from alternative nutrition at this time but would likely not accept NG and per MD note pt wants to remain comfortable. Receiving D5 at 70ml/hr; only 84g DEX/day and 286kcals/day; severely malnourished. Will continue to monitor. Rec: 1. continue pureed/NTL diet per TYPING OFFICE WORKER recs; encourage PO 2. thickened magic cup shakes TIDWM 3. routine bowel care 4. appetite stimulant per MD approval; inadequate intake over 2 weeks 5. daily wts 6. IF TF; recommend Jevity 1.2 at 65ml/hr goal 7. Monitor for changes in code status
[2019-12-29 18:00] VITALS: BP 111/63
--- NOTE | 2019-12-29 18:25 | NUR ---
Report to January RN
[2019-12-29] MEDS: tamsulosin 0.4mg capsule PO SCH (21:00)
[2019-12-29 22:00] VITALS: BP 92/60
[2019-12-30 06:00] VITALS: BP 87/50
[2019-12-30] MEDS: K and/or MAG REPLACEMENT MC SCH ×2 (07:59→20:00)
[2019-12-30] MEDS: levoTHYROXINE 75mcg tablet PO SCH (08:15)
[2019-12-30] MEDS: potassium chloride 10mEq ER tablet PO SCH ×2 (08:15→20:00)
[2019-12-30] MEDS: enoxaparin 40mg/0.4ml syringe SQ SCH (08:16)
--- NOTE | 2019-12-30 08:35 | NUR ---
UNABLE TO ASSESS, WILL CHECK PT NOTES Addendum: 12/30/19 at 0841 by Maria D Nieves RN Amended: Links added.
[2019-12-30 08:54] LABS: ALANINE AMINOTRANSFERASE 38 U/L (12-78); ALBUMIN 2.2 G/DL (3.4-5.0); ALBUMIN/GLOBULIN RATIO 0.4 (1.1-1.5); ALKALINE PHOSPHATASE 146 IU/L (46-116); ANION GAP 12 (8-16); ASPARTATE AMINO TRANSFERASE 43 U/L (10-37); BASOPHILS % (AUTO) 0.5 % (0-1); BILIRUBIN,TOTAL 0.8 MG/DL (0.1-1.0); BLOOD UREA NITROGEN 17 MG/DL (7-18); BUN/CREATININE RATIO 14.5 (5.4-32.0); CALCIUM 8.4 MG/DL (8.5-10.1); CHLORIDE 108 MMOL/L (99-107); CREATININE 1.17 MG/DL (0.60-1.10); EOSINOPHILS # (AUTO) 0.2 X10'3 (0-0.9); GLUCOSE 107 MG/DL (70-104); HEMATOCRIT 36.2 % (42.0-52.0); HEMOGLOBIN 12.3 g/dl (14.0-17.9); LYMPHOCYTES # (AUTO) 1.2 X10'3 (1.1-4.8); LYMPHOCYTES % (AUTO) 13.6 % (21-51); MEAN CORPUSCULAR HEMOGLOBIN 31.1 PG (27.0-31.0); MEAN CORPUSCULAR VOLUME 91.5 FL (78-98); MEAN PLATELET VOLUME 10.3 FL (7.4-10.4); MONOCYTES # (AUTO) 1.1 X10'3 (0-0.9); MONOCYTES % (AUTO) 12.3 % (2-12); NEUTROPHILS # (AUTO) 6.2 X10'3 (1.8-7.7); NEUTROPHILS % (AUTO) 71.6 % (42-75); PLATELET COUNT 188 X10'3 (140-440); POTASSIUM 3.7 MMOL/L (3.5-5.1); RED BLOOD COUNT 3.96 X10'6 (4.70-6.10); RED CELL DISTRIBUTION WIDTH 15.2 % (11.5-14.5); SODIUM 137 MMOL/L (135-145); TOTAL CARBON DIOXIDE 16.7 MMOL/L (24-32); TOTAL PROTEIN 7.6 G/DL (6.4-8.2); WHITE BLOOD COUNT 8.6 X10'3 (4.5-11.0); eGFR 60 ML/MIN
[2019-12-30] MEDS: ipratropium/albuterol 3ml nebule NEB SCH ×3 (09:00→21:00)
[2019-12-30 10:00] VITALS: BP 88/48
[2019-12-30] MEDS: dextrose 5%-water 1,000 ML IV SCH ×2 (10:18→18:51)
--- NOTE | 2019-12-30 11:18 | NUR ---
Sample sent to lab Addendum: 12/30/19 at 1118 by Maria D Nieves RN Amended: Links added.
--- NOTE | 2019-12-30 11:37 | NUR ---
patient refused temp at 1000 vitals Addendum: 12/30/19 at 1138 by Katherine SHELDON Amended: Links added.
[2019-12-30 17:00] VITALS: BP 88/46
[2019-12-30 17:36] VITALS: BP 76/49
--- NOTE | 2019-12-30 18:04 | NUR ---
Problems reprioritized. Patient report given, questions answered & plan of care reviewed with Rosalina PEÑA.
[2019-12-30] MEDS: tamsulosin 0.4mg capsule PO SCH (21:00)
[2019-12-30 22:00] VITALS: BP 87/46
[2019-12-31 06:00] VITALS: BP 101/70
[2019-12-31 07:50] LABS: BASOPHILS % (AUTO) 0.3 % (0-1); EOSINOPHILS # (AUTO) 0.4 X10'3 (0-0.9); EOSINOPHILS % (AUTO) 4.6 % (0-6); HEMATOCRIT 37.6 % (42.0-52.0); HEMOGLOBIN 12.7 g/dl (14.0-17.9); LYMPHOCYTES # (AUTO) 1.3 X10'3 (1.1-4.8); LYMPHOCYTES % (AUTO) 14.8 % (21-51); MEAN CORPUSCULAR HEMOGLOBIN 30.6 PG (27.0-31.0); MEAN CORPUSCULAR HGB CONC 33.9 g/dL (33.0-36.5); MEAN CORPUSCULAR VOLUME 90.3 FL (78-98); MEAN PLATELET VOLUME 9.8 FL (7.4-10.4); MONOCYTES # (AUTO) 0.8 X10'3 (0-0.9); NEUTROPHILS # (AUTO) 6.1 X10'3 (1.8-7.7); NEUTROPHILS % (AUTO) 71.3 % (42-75); PLATELET COUNT 211 X10'3 (140-440); RED BLOOD COUNT 4.16 X10'6 (4.70-6.10); RED CELL DISTRIBUTION WIDTH 15.3 % (11.5-14.5); WHITE BLOOD COUNT 8.5 X10'3 (4.5-11.0)
[2019-12-31] MEDS: potassium chloride 10mEq ER tablet PO SCH ×2 (08:02→20:04)
[2019-12-31] MEDS: levoTHYROXINE 75mcg tablet PO SCH (08:02)
[2019-12-31] MEDS: enoxaparin 40mg/0.4ml syringe SQ SCH (08:03)
[2019-12-31 08:11] LABS: ALANINE AMINOTRANSFERASE 34 U/L (12-78); ALBUMIN 2.1 G/DL (3.4-5.0); ALBUMIN/GLOBULIN RATIO 0.4 (1.1-1.5); ALKALINE PHOSPHATASE 138 IU/L (46-116); ANION GAP 13 (8-16); ASPARTATE AMINO TRANSFERASE 29 U/L (10-37); BILIRUBIN,TOTAL 0.6 MG/DL (0.1-1.0); BLOOD UREA NITROGEN 15 MG/DL (7-18); BUN/CREATININE RATIO 14.7 (5.4-32.0); CALCIUM 7.9 MG/DL (8.5-10.1); CHLORIDE 105 MMOL/L (99-107); CREATININE 1.02 MG/DL (0.60-1.10); GLUCOSE 98 MG/DL (70-104); SODIUM 136 MMOL/L (135-145); TOTAL CARBON DIOXIDE 18.5 MMOL/L (24-32); TOTAL PROTEIN 7.4 G/DL (6.4-8.2); eGFR 70 ML/MIN
[2019-12-31] MEDS: K and/or MAG REPLACEMENT MC SCH ×2 (08:20→20:00)
[2019-12-31] MEDS: ipratropium/albuterol 3ml nebule NEB SCH ×3 (09:00→20:15)
[2019-12-31 10:00] VITALS: BP 91/56
[2019-12-31] MEDS: dextrose 5%-water 1,000 ML IV SCH ×2 (14:54→23:48)
--- NOTE | 2019-12-31 15:08 | NUR ---
Patient refused SVN tx @ this time. No Shortness of breath noted. PT REFUSING FOR DAYS CAN WE CONSIDER DC ORDER Addendum: 12/31/19 at 1508 by Humaira Ortega RT Amended: Links added.
[2019-12-31 18:00] VITALS: BP 87/55
--- NOTE | 2019-12-31 18:05 | NUR ---
Received patient report from CASEY Killian. Assumed patient care.
--- NOTE | 2019-12-31 18:08 | NUR ---
Problems reprioritized. Patient report given, questions answered & plan of care reviewed with Olga PEÑA.
[2019-12-31] MEDS: tamsulosin 0.4mg capsule PO SCH (20:04)
[2020-01-01 06:00] VITALS: BP 89/53
[2020-01-01 06:10] LABS: POTASSIUM 2.9 MMOL/L (3.5-5.1)
--- NOTE | 2020-01-01 06:21 | NUR ---
Patient in room ORTHO 4007. I have received report from Krystle PEÑA and had the opportunity to ask questions and assume patient care.
--- NOTE | 2020-01-01 06:21 | NUR ---
Patient report given, questions answered and plan of care reviewed with CASEY Killian
[2020-01-01] MEDS: K and/or MAG REPLACEMENT MC SCH ×2 (08:11→20:00)
[2020-01-01] MEDS: levoTHYROXINE 75mcg tablet PO SCH (08:13)
[2020-01-01] MEDS: potassium chloride 10mEq ER tablet PO SCH (08:13)
[2020-01-01] MEDS: enoxaparin 40mg/0.4ml syringe SQ SCH (08:14)
[2020-01-01] MEDS ORDERED: magnesium Cl slow-release 64mg tablet PO PRN (08:45)
[2020-01-01] MEDS ORDERED: potassium CL 10mEq/100ml bag 100 ML IV PRN (08:45)
[2020-01-01] MEDS ORDERED: potassium Cl 20 mEq SR tablet PO PRN ×2 (08:45)
[2020-01-01] MEDS ORDERED: magnesium 4gm in 100ml NS 100 ML IV PRN (08:45)
[2020-01-01] MEDS: ipratropium/albuterol 3ml nebule NEB SCH ×3 (09:00→20:55)
[2020-01-01 09:59] VITALS: BP 93/62
[2020-01-01 10:11] LABS: MAGNESIUM 1.9 MG/DL (1.5-2.4)
[2020-01-01] MEDS ORDERED: POTASSIUM BICARB 20meq eff tab 20 MEQ TABLET.EFF PO PRN (10:36)
--- NOTE | 2020-01-01 11:03 | NUR ---
PATIENT REFUSED HAIR WASH CAP. LORA CLEANED AT 0830 - PATIENT TOLERATED WELL.
[2020-01-01] MEDS: POTASSIUM BICARB 20meq eff tab 20 MEQ TABLET.EFF PO PRN ×3 (12:14→21:30)
[2020-01-01] MEDS: dextrose 5%-water 1,000 ML IV SCH (14:04)
--- NOTE | 2020-01-01 15:54 | NUR ---
Reassessment: Pt continues refusal of all meals. Refused all thickened magic cup smoothies so dietary notified to stop sending. RN reports pt stating only wants to be comfortable. Pt currently not comfort care. Once labs stable will be medically cleared for [facility] eval per MD note. LBM 12/31. RD d/w RN regarding appetite stimulant per MD approval given continued refusal of PO over 2 weeks. Pt has lost 10kg since admit bed scale wts likely accurate severe wt loss given no PO since admit. New BMI 16.5 w/ latest bed scale wt and correct height hx 68in. Pt would certainly pull out NG if placed for nutrition. Still unable to meet needs. Will continue to monitor. Rec: 1. continue pureed/NTL diet per REPEAT CHIEF recs; encourage PO 2. routine bowel care 3. appetite stimulant per MD approval; inadequate intake over 2 weeks 4. daily wts 5. IF EN; recommend Jevity 1.2 at 65ml/hr goal 6. Likely will need PEG for long-term nutrition needs given ALOC and meal refusals 7. Monitor for changes in code status Addendum: 01/01/20 at [address] Amended: Links added.
[2020-01-01] MEDS: Potassium Cl inj 20 MEQ in dextrose 5%-water 990 ML IV SCH (17:43)
[2020-01-01 18:00] VITALS: BP 98/54
[2020-01-01] MEDS: lactose-reduced food (Ensure High Protein) 237ml bottle PO SCH (18:00)
--- NOTE | 2020-01-01 18:05 | NUR ---
Received patient report from CASEY Killian. Assumed patient care.
[2020-01-01] MEDS: dronabinol 2.5mg capsule PO SCH (18:06)
--- NOTE | 2020-01-01 18:28 | NUR ---
Problems reprioritized. Patient report given, questions answered & plan of care reviewed with Krystle PEÑA.
[2020-01-01] MEDS: POTASSIUM BICARBONATE/CIT AC 10 MEQ TABLET.EFF PO SCH (21:30)
[2020-01-01] MEDS: tamsulosin 0.4mg capsule PO SCH (21:30)
[2020-01-01 22:00] VITALS: BP 88/53
[2020-01-02 06:00] VITALS: BP 95/59
--- NOTE | 2020-01-02 06:30 | NUR ---
Patient report given, questions answered and plan of care reviewed with CASEY Avalos.
--- NOTE | 2020-01-02 06:34 | NUR ---
Patient in room ORTHO 4007. I have received report from Krystle PEÑA and had the opportunity to ask questions and assume patient care.
[2020-01-02 06:38] LABS: ALANINE AMINOTRANSFERASE 32 U/L (12-78); ALBUMIN 2.3 G/DL (3.4-5.0); ALBUMIN/GLOBULIN RATIO 0.4 (1.1-1.5); ALKALINE PHOSPHATASE 136 IU/L (46-116); ANION GAP 9 (8-16); ASPARTATE AMINO TRANSFERASE 23 U/L (10-37); BILIRUBIN,TOTAL 0.7 MG/DL (0.1-1.0); BLOOD UREA NITROGEN 12 MG/DL (7-18); BUN/CREATININE RATIO 9.9 (5.4-32.0); CALCIUM 8.4 MG/DL (8.5-10.1); CHLORIDE 104 MMOL/L (99-107); CREATININE 1.21 MG/DL (0.60-1.10); GLUCOSE 105 MG/DL (70-104); POTASSIUM 4.2 MMOL/L (3.5-5.1); SODIUM 136 MMOL/L (135-145); TOTAL CARBON DIOXIDE 23.1 MMOL/L (24-32); TOTAL PROTEIN 8.1 G/DL (6.4-8.2); eGFR 57 ML/MIN
[2020-01-02] MEDS: K and/or MAG REPLACEMENT MC SCH ×2 (07:08→19:40)
[2020-01-02] MEDS: Potassium Cl inj 20 MEQ in dextrose 5%-water 990 ML IV SCH ×2 (08:04→21:15)
[2020-01-02] MEDS: POTASSIUM BICARBONATE/CIT AC 10 MEQ TABLET.EFF PO SCH ×2 (08:04→19:39)
[2020-01-02] MEDS: levoTHYROXINE 75mcg tablet PO SCH (08:05)
[2020-01-02] MEDS: enoxaparin 40mg/0.4ml syringe SQ SCH (08:08)
[2020-01-02] MEDS: lactose-reduced food (Ensure High Protein) 237ml bottle PO SCH (08:12)
[2020-01-02] MEDS: ipratropium/albuterol 3ml nebule NEB SCH ×3 (08:14→20:37)
[2020-01-02 10:00] VITALS: BP 88/55
[2020-01-02] MEDS: dronabinol 2.5mg capsule PO SCH ×3 (10:04→17:25)
--- NOTE | 2020-01-02 12:03 | NUR ---
Patient in room ORTHO 4007. I have received report from primary nurse Robbie and had the opportunity to ask questions and assume patient care. -grey MCCRARY, sn
[2020-01-02 13:27] VITALS: BP 79/54
--- NOTE | 2020-01-02 13:30 | NUR ---
Pt states their is no pain but during assessment, it was generalized pain all over body and painful to touch pt. Offered if he wanted any pain medications to help relieve but denies treatment and easily agitated when I continue to education that it will help relieve pain. -grey MCCRARY
[2020-01-02 16:13] VITALS: BP 86/56
--- NOTE | 2020-01-02 17:25 | NUR ---
Patient report given to primary nurse Robbie, questions answered & plan of care reviewed with Clinical Instructor Anabella. -Florencia MCCRARY SN
--- NOTE | 2020-01-02 17:43 | NUR ---
Student report assessment reviewed and agreed upon. Addendum: 01/02/20 at 1743 by Anabella Hyman RN Amended: Links added.
[2020-01-02 18:00] VITALS: BP 83/48
--- NOTE | 2020-01-02 18:35 | NUR ---
Patient in room ORTHO 4007. I have received report from Robbie PEÑA and had the opportunity to ask questions and assume patient care.
--- NOTE | 2020-01-02 18:35 | NUR ---
Problems reprioritized. Patient report given, questions answered & plan of care reviewed with Bria PEÑA.
--- NOTE | 2020-01-02 19:40 | NUR ---
Patient yells in pain when touched or turned but asked if he wants pain meds and declines medication.
[2020-01-02] MEDS: tamsulosin 0.4mg capsule PO SCH (21:16)
[2020-01-02 22:00] VITALS: BP 87/59
[2020-01-03 06:00] VITALS: BP 78/53
--- NOTE | 2020-01-03 06:24 | NUR ---
Patient in room ORTHO 4007. I have received report from Bria PEÑA and had the opportunity to ask questions and assume patient care.
--- NOTE | 2020-01-03 06:34 | NUR ---
Problems reprioritized. Patient report given, questions answered & plan of care reviewed with Robbie PEÑA.
[2020-01-03 07:04] LABS: MAGNESIUM 2.1 MG/DL (1.5-2.4); POTASSIUM 4.6 MMOL/L (3.5-5.1)
[2020-01-03] MEDS: levoTHYROXINE 75mcg tablet PO SCH (08:00)
[2020-01-03] MEDS: K and/or MAG REPLACEMENT MC SCH ×2 (08:00→20:00)
[2020-01-03] MEDS: POTASSIUM BICARBONATE/CIT AC 10 MEQ TABLET.EFF PO SCH ×2 (08:01→20:19)
[2020-01-03] MEDS: dronabinol 2.5mg capsule PO SCH ×3 (08:02→17:11)
[2020-01-03] MEDS: enoxaparin 40mg/0.4ml syringe SQ SCH (08:02)
[2020-01-03] MEDS: ipratropium/albuterol 3ml nebule NEB SCH ×3 (09:00→21:00)
--- NOTE | 2020-01-03 09:17 | NUR ---
Robbie 0807 Re: Megha Sosa do you want CBC or CMP labs ordered?
--- NOTE | 2020-01-03 09:24 | NUR ---
patient refused to eat. he keeps saying he will eat later but does not try to make an effort to eat or drink.
[2020-01-03 10:00] VITALS: BP 97/51
[2020-01-03] MEDS: Potassium Cl inj 20 MEQ in dextrose 5%-water 990 ML IV SCH (10:02)
[2020-01-03 10:26] LABS: BASOPHILS # (AUTO) 0.1 X10'3 (0-0.2); BASOPHILS % (AUTO) 1.1 % (0-1); EOSINOPHILS # (AUTO) 0.3 X10'3 (0-0.9); EOSINOPHILS % (AUTO) 4.7 % (0-6); HEMATOCRIT 35.7 % (42.0-52.0); HEMOGLOBIN 12.2 g/dl (14.0-17.9); LYMPHOCYTES # (AUTO) 1.3 X10'3 (1.1-4.8); LYMPHOCYTES % (AUTO) 18.8 % (21-51); MEAN CORPUSCULAR HGB CONC 34.2 g/dL (33.0-36.5); MEAN CORPUSCULAR VOLUME 90.9 FL (78-98); MONOCYTES # (AUTO) 0.6 X10'3 (0-0.9); MONOCYTES % (AUTO) 8.3 % (2-12); NEUTROPHILS # (AUTO) 4.6 X10'3 (1.8-7.7); NEUTROPHILS % (AUTO) 67.1 % (42-75); PLATELET COUNT 276 X10'3 (140-440); RED BLOOD COUNT 3.93 X10'6 (4.70-6.10); WHITE BLOOD COUNT 6.9 X10'3 (4.5-11.0)
[2020-01-03 10:48] LABS: ANION GAP 8 (8-16); BLOOD UREA NITROGEN 10 MG/DL (7-18); BUN/CREATININE RATIO 8.6 (5.4-32.0); CHLORIDE 105 MMOL/L (99-107); CREATININE 1.16 MG/DL (0.60-1.10); GLUCOSE 97 MG/DL (70-104); SODIUM 135 MMOL/L (135-145); TOTAL CARBON DIOXIDE 22.2 MMOL/L (24-32); eGFR 60 ML/MIN
[2020-01-03 10:49] LABS: ALANINE AMINOTRANSFERASE 23 U/L (12-78); ALBUMIN 2.2 G/DL (3.4-5.0); ALBUMIN/GLOBULIN RATIO 0.4 (1.1-1.5); ALKALINE PHOSPHATASE 112 IU/L (46-116); ASPARTATE AMINO TRANSFERASE 29 U/L (10-37); BILIRUBIN,TOTAL 0.6 MG/DL (0.1-1.0); CALCIUM 8.7 MG/DL (8.5-10.1); TOTAL PROTEIN 7.7 G/DL (6.4-8.2)
--- NOTE | 2020-01-03 11:47 | NUR ---
0900 SVN treatment triaged
[2020-01-03 18:00] VITALS: BP 82/43
--- NOTE | 2020-01-03 18:31 | NUR ---
Problems reprioritized. Patient report given, questions answered & plan of care reviewed with Bria PEÑA.
--- NOTE | 2020-01-03 18:39 | NUR ---
Patient in room ORTHO 4007. I have received report from Robbie PEÑA and had the opportunity to ask questions and assume patient care.
[2020-01-03] MEDS: tamsulosin 0.4mg capsule PO SCH (20:19)
[2020-01-03 22:00] VITALS: BP 91/48
[2020-01-04] MEDS: Potassium Cl inj 20 MEQ in dextrose 5%-water 990 ML IV SCH ×2 (00:18→15:55)
[2020-01-04 06:00] VITALS: BP 129/72
--- NOTE | 2020-01-04 06:21 | NUR ---
Problems reprioritized. Patient report given, questions answered & plan of care reviewed with Robbie PEÑA.
[2020-01-04 06:24] LABS: MAGNESIUM 2.2 MG/DL (1.5-2.4); POTASSIUM 4.5 MMOL/L (3.5-5.1)
--- NOTE | 2020-01-04 06:27 | NUR ---
Patient in room ORTHO 4007. I have received report from Bria PEÑA and had the opportunity to ask questions and assume patient care.
[2020-01-04] MEDS: dronabinol 2.5mg capsule PO SCH ×3 (07:00→17:00)
[2020-01-04] MEDS: levoTHYROXINE 75mcg tablet PO SCH (07:30)
[2020-01-04] MEDS: POTASSIUM BICARBONATE/CIT AC 10 MEQ TABLET.EFF PO SCH ×2 (08:00→20:24)
[2020-01-04] MEDS: enoxaparin 40mg/0.4ml syringe SQ SCH (08:00)
--- NOTE | 2020-01-04 08:00 | NUR ---
Patient refused his breakfast and his morning medications. Educated patient on the importance of eating and his medications but was still refusing.
[2020-01-04] MEDS: K and/or MAG REPLACEMENT MC SCH ×2 (08:31→20:00)
[2020-01-04] MEDS: ipratropium/albuterol 3ml nebule NEB SCH ×3 (08:56→20:13)
--- NOTE | 2020-01-04 10:40 | NUR ---
patient refused to have his vital taken for 1000. Ask multiple times but still refused.
--- NOTE | 2020-01-04 11:45 | NUR ---
Reassessment: Pt now with Marinol rx however pt continues to refuse all meals despite encouragement from RN. RD consulted ST for f/u BSS since last assessment was 12/26 and nutrition interventions are very limited considering current texture modification. Pt previously refusing nectar thick shakes, will trial Magic Cup with dinners while pending f/u BSS. Per physical assessment pt resistive to care, documented to be refusing medications at times as well as meals. LB 01/03. Will continue to follow closely. Rec: 1. continue pureed/NTL diet per TRAVEL CONSULTANT recs; encourage PO 2. Magic cup q dinner 3. routine bowel care 4. continue appetite stimulant per MD 5. daily wts 6. IF EN; recommend Jevity 1.2 at 65ml/hr goal 7. Likely will need PEG for long-term nutrition needs given ALOC and meal refusals 8. Monitor for changes in code status Addendum: 01/04/20 at [address] Amended: Links added.
[2020-01-04 18:00] VITALS: BP 89/52
--- NOTE | 2020-01-04 18:31 | NUR ---
Problems reprioritized. Patient report given, questions answered & plan of care reviewed with Bria PEÑA.
--- NOTE | 2020-01-04 18:37 | NUR ---
Patient in room ORTHO 4007. I have received report from Robbie PEÑA and had the opportunity to ask questions and assume patient care.
--- NOTE | 2020-01-04 20:15 | NUR ---
spoke with patient about IV, patient became angry and stated "no", educated on IV importance and importance of drinking fluids to stay hydrated
[2020-01-04] MEDS: tamsulosin 0.4mg capsule PO SCH (20:24)
[2020-01-04 22:00] VITALS: BP 107/59
--- NOTE | 2020-01-04 23:00 | NUR ---
Student documentation: I have reviewed and agree with all interventions, assessments performed and documented by Jerilyn student nurse.
--- NOTE | 2020-01-04 23:53 | NUR ---
patient agreed for a new IV to be placed, attempted once, patient does not want any more attempts, reeducated on importance of drinking fluids for hydration
[2020-01-05 06:00] VITALS: BP 107/56
[2020-01-05] MEDS: Potassium Cl inj 20 MEQ in dextrose 5%-water 990 ML IV SCH ×2 (06:13→20:31)
--- NOTE | 2020-01-05 06:38 | NUR ---
Problems reprioritized. Patient report given, questions answered & plan of care reviewed with Stanley PEÑA.
[2020-01-05 06:41] LABS: MAGNESIUM 2.2 MG/DL (1.5-2.4); POTASSIUM 4.4 MMOL/L (3.5-5.1)
[2020-01-05] MEDS: ipratropium/albuterol 3ml nebule NEB SCH ×3 (07:25→20:34)
[2020-01-05] MEDS: POTASSIUM BICARBONATE/CIT AC 10 MEQ TABLET.EFF PO SCH ×2 (07:40→20:33)
[2020-01-05] MEDS: levoTHYROXINE 75mcg tablet PO SCH (07:40)
[2020-01-05] MEDS: dronabinol 2.5mg capsule PO SCH ×3 (07:41→17:14)
[2020-01-05] MEDS: enoxaparin 40mg/0.4ml syringe SQ SCH ×3 (07:42→08:00)
[2020-01-05] MEDS: K and/or MAG REPLACEMENT MC SCH ×2 (08:00→20:00)
[2020-01-05 10:00] VITALS: BP 92/53
--- NOTE | 2020-01-05 15:42 | NUR ---
pt. was uncofortabe and wanted to stop treatment a little early. most of medication nebulized. increased aeration noted Addendum: 01/05/20 at 1543 by Carlos Sood RT Amended: Links added.
[2020-01-05] MEDS ORDERED: diatr meglu/diatrizoate 30ml oral sol.-(3 dose) bottle PO SCH (18:00)
--- NOTE | 2020-01-05 18:35 | NUR ---
Report to Lyle PEÑA
[2020-01-05] MEDS: tamsulosin 0.4mg capsule PO SCH (20:33)
[2020-01-05 22:01] VITALS: BP 81/47
[2020-01-05 23:00] VITALS: BP 80/49
[2020-01-06 06:00] VITALS: BP 93/50
[2020-01-06] MEDS: diatr meglu/diatrizoate 30ml oral sol.-(3 dose) bottle PO SCH ×3 (06:32→12:30)
[2020-01-06] MEDS: dronabinol 2.5mg capsule PO SCH ×3 (07:00→17:00)
[2020-01-06] MEDS: levoTHYROXINE 75mcg tablet PO SCH (07:30)
[2020-01-06] MEDS: ipratropium/albuterol 3ml nebule NEB SCH ×3 (07:46→20:39)
[2020-01-06] MEDS: POTASSIUM BICARBONATE/CIT AC 10 MEQ TABLET.EFF PO SCH ×2 (08:00→20:00)
[2020-01-06] MEDS: enoxaparin 40mg/0.4ml syringe SQ SCH (08:00)
[2020-01-06] MEDS: K and/or MAG REPLACEMENT MC SCH ×2 (08:00→19:04)
[2020-01-06] MEDS: Potassium Cl inj 20 MEQ in dextrose 5%-water 990 ML IV SCH (08:13)
[2020-01-06 10:00] VITALS: BP 84/55
--- NOTE | 2020-01-06 16:43 | NUR ---
F/u: [email or web address] regarding alternative nutrition given pt refusing IV and PO hydration as well as meals. Continues to refuse care and little to no nutrition intake past 22 days since admit. Pt would benefit from corpak feedings in order to meet nutrition needs. Pt had CT for abdominal distention showing possible ischemic bowel though large BM 01/04 documented. Inadequate oral intake also impacts GI function; pt would benefit from EN. Addendum: 01/06/20 at [address] Amended: Links added.
[2020-01-06 18:00] VITALS: BP 91/58
[2020-01-06] MEDS: tamsulosin 0.4mg capsule PO SCH (20:18)
[2020-01-06 22:00] VITALS: BP 84/54
[2020-01-07 06:00] VITALS: BP 88/55
--- NOTE | 2020-01-07 06:19 | NUR ---
REPORT GIVEN TO CASEY PEREZ.
[2020-01-07] MEDS: dronabinol 2.5mg capsule PO SCH ×3 (07:00→17:00)
[2020-01-07] MEDS: levoTHYROXINE 75mcg tablet PO SCH (07:30)
[2020-01-07] MEDS: K and/or MAG REPLACEMENT MC SCH ×2 (08:00→20:00)
[2020-01-07] MEDS: enoxaparin 40mg/0.4ml syringe SQ SCH (08:00)
[2020-01-07] MEDS: POTASSIUM BICARBONATE/CIT AC 10 MEQ TABLET.EFF PO SCH (08:00)
[2020-01-07] MEDS: ipratropium/albuterol 3ml nebule NEB SCH (08:32)
[2020-01-07 10:00] VITALS: BP 91/56
[2020-01-07] MEDS: Potassium Cl inj 20 MEQ in dextrose 5%-water 990 ML IV SCH ×2 (11:00→21:53)
--- NOTE | 2020-01-07 12:21 | NUR ---
Reassessment: Pt has been made DNR w/ comfort care. [facility] 01/05. Will continue to monitor. Rec: 1. continue pureed/nectar thick diet; honor pt preferences on comfort care 2. bowel care as needed Addendum: 01/07/20 at [address] Amended: Links added.
[2020-01-07] MEDS ORDERED: morphine ORAL 5MG/0.25 ML (Conc. morphine) oral syringe PO PRN (18:15)
[2020-01-07] MEDS ORDERED: morphine 10mg/0.5ml (conc. morphine) oral syringe PO PRN (18:20)
--- NOTE | 2020-01-07 18:33 | NUR ---
Report to SHERMAN WHITAKER RN
--- NOTE | 2020-01-07 18:35 | NUR ---
Patient in room ORTHO 4007. I have received report from CHRIS PEÑA and had the opportunity to ask questions and assume patient care.
[2020-01-07] MEDS: tamsulosin 0.4mg capsule PO SCH (20:12)
--- NOTE | 2020-01-08 03:00 | NUR ---
PATIENT WET WITH DIARRHEA, UNABLE TO DETERMINE IF IT IS WITH URINE. BLADDER SCAN DONE WITH 263ML, TOLD PATIENT THAT HE WILL NEED TO HAVE THE LORA BACK AND STRONGLY REFUSED. PATIENT ALSO NOTED WITH SOME BLOODY DISCHARGE FROM HIS PENIS WHICH IS FROM PULLING HIS LORA OUT STILL WITH BALLOON IN IT FROM THE MORNING SHIFT. PATIENT CLEANED AND LINEN CHANGED.
[2020-01-08] MEDS: Potassium Cl inj 20 MEQ in dextrose 5%-water 990 ML IV SCH ×2 (05:37→12:24)
--- NOTE | 2020-01-08 06:00 | NUR ---
Patient in room ORTHO 4007. I have received report from Ivette and had the opportunity to ask questions and assume patient care.
--- NOTE | 2020-01-08 06:29 | NUR ---
Problems reprioritized. Patient report given, questions answered & plan of care reviewed with KOJO PEÑA.
[2020-01-08] MEDS: K and/or MAG REPLACEMENT MC SCH ×2 (08:00→20:00)
[2020-01-08] MEDS ORDERED: LORazepam 0.5 MG tablet PO PRN (11:25)
[2020-01-08 18:00] VITALS: BP 76/41
--- NOTE | 2020-01-08 18:16 | NUR ---
Problems reprioritized. Patient report given, questions answered & plan of care reviewed with
--- NOTE | 2020-01-08 18:25 | NUR ---
Patient in room ORTHO 4007. I have received report from CASEY VARMA and had the opportunity to ask questions and assume patient care.
[2020-01-08] MEDS: tamsulosin 0.4mg capsule PO SCH (21:02)
[2020-01-08 21:55] VITALS: BP 94/56
[2020-01-09] MEDS: Potassium Cl inj 20 MEQ in dextrose 5%-water 1,000 ML IV SCH ×2 (01:22→14:52)
--- NOTE | 2020-01-09 06:10 | NUR ---
Rcvd report from Osiris PEÑA
--- NOTE | 2020-01-09 06:24 | NUR ---
Problems reprioritized. Patient report given, questions answered & plan of care reviewed with CASEY BECERRIL AND CASEY JOHNSON.
[2020-01-09] MEDS: K and/or MAG REPLACEMENT MC SCH ×2 (07:32→20:00)
[2020-01-09 10:00] VITALS: BP 70/41
--- NOTE | 2020-01-09 18:05 | NUR ---
Patient in room ORTHO 4007. I have received report from María PEÑA and had the opportunity to ask questions and assume patient care.
--- NOTE | 2020-01-09 18:06 | NUR ---
Gave report to Julia PEÑA and Amada PEÑA
[2020-01-09] MEDS: tamsulosin 0.4mg capsule PO SCH (20:14)
[2020-01-10] MEDS: Potassium Cl inj 20 MEQ in dextrose 5%-water 1,000 ML IV SCH (04:08)
--- NOTE | 2020-01-10 06:19 | NUR ---
Problems reprioritized. Patient report given, questions answered & plan of care reviewed with Rhonda PEÑA.
--- NOTE | 2020-01-10 06:35 | NUR ---
Patient in room ORTHO 4007. I have received report from Remi PEÑA and had the opportunity to ask questions and assume patient care.
[2020-01-10] MEDS: K and/or MAG REPLACEMENT MC SCH ×2 (06:37→20:00)
[2020-01-10 09:28] VITALS: BP 68/47
--- NOTE | 2020-01-10 17:45 | NUR ---
Patient was turned every 2 hours, and cleaned up at needed. Bony prominences padded and optifoam padded dressing in place on coccyx/sacrum area. Patient is refusing all medications and food at this time. Care activities are comfort care, as per patients wishes.
--- NOTE | 2020-01-10 18:14 | NUR ---
Problems reprioritized. Patient report given, questions answered & plan of care reviewed with Julia PEÑA.
--- NOTE | 2020-01-10 18:15 | NUR ---
Patient in room ORTHO 4007. I have received report from Rhonda PEÑA and had the opportunity to ask questions and assume patient care.
[2020-01-10] MEDS: tamsulosin 0.4mg capsule PO SCH (20:32)
[2020-01-11 06:00] VITALS: BP 73/45
--- NOTE | 2020-01-11 06:06 | NUR ---
Problems reprioritized. Patient report given, questions answered & plan of care reviewed with Rhonda PEÑA.
--- NOTE | 2020-01-11 06:17 | NUR ---
Patient in room ORTHO 4007. I have received report from Julia PEÑA and had the opportunity to ask questions and assume patient care.
[2020-01-11] MEDS: K and/or MAG REPLACEMENT MC SCH (08:00)
[2020-01-11 09:50] VITALS: BP 69/34
--- NOTE | 2020-01-11 18:20 | NUR ---
Problems reprioritized. Patient report given, questions answered & plan of care reviewed with Julia PEÑA.
--- NOTE | 2020-01-11 18:27 | NUR ---
Patient in room ORTHO 4007. I have received report from Robbie PEÑA and had the opportunity to ask questions and assume patient care. Addendum: 01/11/20 at 1829 by Amada Sullivan RN Report from Rhonda PEÑA, not Robbie.
[2020-01-11] MEDS: tamsulosin 0.4mg capsule PO SCH (20:18)
--- NOTE | 2020-01-12 06:14 | NUR ---
Problems reprioritized. Patient report given, questions answered & plan of care reviewed with Elicia PEÑA.
--- NOTE | 2020-01-12 06:22 | NUR ---
Patient in room ORTHO 4007. I have received report from CASEY Ybarra and had the opportunity to ask questions and assume patient care.
[2020-01-12 09:59] VITALS: BP 67/42
--- NOTE | 2020-01-12 13:54 | NUR ---
Problems reprioritized. Patient report given, questions answered & plan of care reviewed with CASEY Daniel and CASEY Carrero.
--- NOTE | 2020-01-12 13:56 | NUR ---
Rcvd report from Elicia PEÑA
[2020-01-12 15:25] VITALS: BP 67/42
[2020-01-12] MEDS: tamsulosin 0.4mg capsule PO SCH (21:00)
[2020-01-12 22:00] VITALS: BP 88/56
--- NOTE | 2020-01-13 06:25 | NUR ---
Patient in room ORTHO 4007. I have received report from CASEY Gill and had the opportunity to ask questions and assume patient care.
[2020-01-13 10:00] VITALS: BP 116/91
--- NOTE | 2020-01-13 18:07 | NUR ---
Problems reprioritized. Patient report given, questions answered & plan of care reviewed with CASEY Newell.
--- NOTE | 2020-01-13 18:23 | NUR ---
Patient in room ORTHO 4007. I have received report from codey Carrero and had the opportunity to ask questions and assume patient care.
[2020-01-13] MEDS: tamsulosin 0.4mg capsule PO SCH (21:00)
--- NOTE | 2020-01-14 06:22 | NUR ---
Problems reprioritized. Patient report given, questions answered & plan of care reviewed with codey Li.
--- NOTE | 2020-01-14 06:28 | NUR ---
Patient in room ORTHO 4007. I have received report from Osiris PEÑA and had the opportunity to ask questions and assume patient care.
[2020-01-14 07:00] VITALS: BP 91/65
--- NOTE | 2020-01-14 10:23 | NUR ---
Problems reprioritized. Patient report given, questions answered & plan of care reviewed with Sarina PEÑA.
--- NOTE | 2020-01-14 11:56 | NUR ---
Reassessment: Pt has been made DNR w/ comfort care. [facility] 01/10. Will continue to monitor. Rec: 1. continue pureed/nectar thick diet; honor pt preferences on comfort care 2. bowel care as needed Addendum: 01/14/20 at [address] Amended: Links added.
[2020-01-14] MEDS: tamsulosin 0.4mg capsule PO SCH (21:00)
--- NOTE | 2020-01-15 06:22 | NUR ---
Patient in room ORTHO 4007. I have received report from Osiris PEÑA and had the opportunity to ask questions and assume patient care.
--- NOTE | 2020-01-15 06:25 | NUR ---
patient refused 0600 vitals.
--- NOTE | 2020-01-15 06:27 | NUR ---
Problems reprioritized. Patient report given, questions answered & plan of care reviewed with CASEY RIZVI.
--- NOTE | 2020-01-15 18:15 | NUR ---
Problems reprioritized. Patient report given, questions answered & plan of care reviewed with Jonathan .
--- NOTE | 2020-01-15 18:24 | NUR ---
Patient in room ORTHO 4007. I have received report from Robbie PEÑA and had the opportunity to ask questions and assume patient care.
[2020-01-15] MEDS: tamsulosin 0.4mg capsule PO SCH (19:19)
[2020-01-16 06:00] VITALS: BP 89/64
--- NOTE | 2020-01-16 06:06 | NUR ---
Problems reprioritized. Patient report given, questions answered & plan of care reviewed with Robbie PEÑA.
--- NOTE | 2020-01-16 06:08 | NUR ---
Patient in room ORTHO 4007. I have received report from [facility] and had the opportunity to ask questions and assume patient care.
[2020-01-16 10:00] VITALS: BP 130/60
--- NOTE | 2020-01-16 18:25 | NUR ---
Problems reprioritized. Patient report given, questions answered & plan of care reviewed with Delmer.
--- NOTE | 2020-01-16 18:25 | NUR ---
Patient in room ORTHO 4007. I have received report from Robbie PEÑA and had the opportunity to ask questions and assume patient care.
[2020-01-16] MEDS: tamsulosin 0.4mg capsule PO SCH (20:07)
--- NOTE | 2020-01-16 22:43 | NUR ---
Patient at 2243. Two RNs present when patient passed.
--- NOTE | 2020-01-16 23:19 | NUR ---
RN IS TO DOCUMENT YES TO ALL APPLICABLE AREAS Pronouncement of : 1. Time Physician Notified:2304 2. Date of :01/16/2020 3. Time of : 2246 4. DNR/Withdraw life support documented:yes 5. Monitor strip has been placed on chart:yes 6. Assessment process is of one-minute duration and includes following criteria: a) Patient is unresponsive to all stimuli: yes b) Pupils fixed and non-reactive:yes c) Auscultation of precordium reveals absence of heart tones:yes d) Auscultation of lungs reveals absence of breath sounds: e) Absence of blood pressure / all vital signs:yes f) QRS complexes are not present on monitor / EKG strip:yes g) Pacer spikes without capture: 4. Comments:
--- NOTE | 2020-01-17 00:11 | NUR ---
Jan and Sharath picked up patient to transfer him to the mortuary.
== END 2020-01-17 00:11 | disposition expired | DRG 720 ==
LOC: ED HOLD 20:02 → ORTHO 4S 12-15 19:20
PROVIDERS: ADMIT Hospitalist; ATTEND Hospitalist
DX: A41.9 Sepsis, unspecified organism (principal); J11.00 Influenza due to unidentified influenza virus with unspecified type of pneumonia; K55.9 Vascular disorder of intestine, unspecified; E87.0 Hyperosmolality and hypernatremia; F03.90 Unspecified dementia, unspecified severity, without behavioral disturbance, psychotic disturbance, mood disturbance, and anxiety; N18.3 Chronic kidney disease, stage 3 (moderate); R63.0 Anorexia; Z66 Do not resuscitate; E87.6 Hypokalemia; R62.7 Adult failure to thrive; Z51.5 Encounter for palliative care; F32.9 Major depressive disorder, single episode, unspecified; R19.7 Diarrhea, unspecified; E03.9 Hypothyroidism, unspecified; Z59.0 Homelessness; Z79.899 Other long term (current) drug therapy; Z68.1 Body mass index [BMI] 19.9 or less, adult
CPT/HCPCS: 36415; 74018; 74176; 80048; 80053; 83605; 83735; 84132; 84145; 85025; 87081; 92508; 92616; 93975; 94640; 94760; 97110; 97116; 97162; 99285; G0378; J0696; J1650; J3480; J7030; J7070; Q0167; Q9963